=== PATIENT | female | born 1965 | race Caucasian/White ===

== ENCOUNTER → 2016-05-13 | Outpatient (CLI) | payer OTHER ==
[2016-05-13 13:30] VITALS: BP 114/75; PULSE 51; TEMP 97.1; BMI 32.1
--- NOTE | 2016-05-13 13:48 | P.BASOAP ---
Subjective Principal diagnosis: Morbid obesity Sever DJA Obstructive sleep apnea Patient is doing very well. No nasuea no vomting. no fever or chills. She is sticking with her diet. She reports having hair loss as well as issues of moistness and intermittent infection of hte redundant skin on the left side. She is ambulating well and does not require any pain medication for her osteoarthritis Objective - Vital Signs Vital signs: Vital Signs Temp 97.1 F L 05/13/16 13:28 Pulse 51 L 05/13/16 13:28 Resp BP 114/75 05/13/16 13:28 Pulse Ox Intake & Output 05/12/16 05/13/16 05/13/16 18:59 06:59 18:59 Weight 86.409 kg - Constitutional General appearance: Present: cooperative, obese - EENT Eyes: Present: EOMI, PERRLA ENT: Present: hearing grossly normal - Neck Neck: Absent: lymphadenopathy, normal ROM, other, rigidity, stridor, thyromegaly - Respiratory Details: Normal breathing without and dyspnea Respiratory: bilateral: CTA - Gastrointestinal Gastrointestinal Comment(s): incisions are healing well. No hernias General gastrointestinal: Present: normal bowel sounds, scaphoid, soft. Absent : absent bowel sounds, decreased bowel sounds, distended, hepatomegaly, hyperactive bowel sounds, rigid, splenomegaly, tenderness, umbilical hernia, ventral hernia - Integumentary Integumentary: Absent: calor, cellulitis, cyanotic, decreased turgor, flushed, jaundiced, normal, normal turgor, pale, rash, ulcer - Neurologic Neurologic: Present: CNII-XII intact. Absent: focal deficits - Psychiatric Psychiatric: Present: A&O x's 3, appropriate affect, intact judgment & insight Assessment/Plan Plan: Date: 05/13/16 Initial Weight: 116.528 kg Initial BMI: 43.4 Current Weight: 86.409 kg Current BMI: 32.1 Type of Surgery: Sleeve gastrectomy Is doing very well with her weight loss. He continue to maintain her diet. She is very active. She continues to use her CPAP for his sleep apnea. She has been using 40 mg of omeprazole for her reflux and I have recommended for her to stop taking that and weaning herself off over the next 2 months. Complaining of hearing loss which is worse than before I will do baseline labs including selenium to check for any migrated deficiency. She is however regularly taking her multivitamins. She is not using any pain medication for her legs and ablating well. She has however complaining about intermittent infection in the skin which was examined today and there was none at this time it was fairly dry. We'll continue to reevaluate the patient for that issue. Patient is to follow-up in 3 months thank you
[2016-05-13 15:12] LABS: CH 30.6; CHCM 35.4; HCT 37.4 % (34.0-46.0); HDW 3.05; HGB 12.9 gm/dL (11.4-16.0); MCHC 34.6 g/dL (31.0-37.0); MCV 86.8 fL (80.0-100.0); Mean Platelet Volume 7.9; RBC 4.31 m/uL (3.80-5.40); RDW 13.3 % (11.5-15.5); WBC 5.7 k/uL (3.8-10.6)
[2016-05-13 15:14] LABS: Anion Gap 13 mmol/L; Carbon Dioxide 30 mmol/L (22-30); Chloride 100 mmol/L (98-107); Glucose 84 mg/dL (74-99); Sodium 143 mmol/L (137-145)
[2016-05-13 15:15] LABS: ALT 36 U/L (9-52); AST 21 U/L (14-36); Alkaline Phosphatase 56 U/L (38-126); Blood Urea Nitrogen 18 mg/dL (7-17); Cholesterol 211 mg/dL (<200); HDL Cholesterol 51 mg/dL (40-60); Non-African American GFR(MDRD) >60 (>60 ml/min/1.73 sqM); Phosphorous 4.4 mg/dL (2.5-4.5); Potassium 4.6 mmol/L (3.5-5.1); Total Bilirubin 0.7 mg/dL (0.2-1.3); Total Protein 7.3 g/dL (6.3-8.2); Triglycerides 179 mg/dL (<150)
[2016-05-13 15:22] LABS: Prealbumin 26 mg/dL (18-36)
[2016-05-13 16:18] LABS: Vitamin B12 356 pg/mL (239-931)
[2016-05-16 18:48] LABS: Selenium 143 mcg/L (63-160)
== END | disposition home or self-care (01) ==
LOC: BARWHC3 12:53
PROVIDERS: ATTEND Surgery
DX: Z48.815 Encounter for surgical aftercare following surgery on the digestive system (principal); Z71.3 Dietary counseling and surveillance; E66.01 Morbid (severe) obesity due to excess calories; Z68.32 Body mass index [BMI] 32.0-32.9, adult; G47.33 Obstructive sleep apnea (adult) (pediatric); Z99.89 Dependence on other enabling machines and devices; M19.90 Unspecified osteoarthritis, unspecified site; L65.9 Nonscarring hair loss, unspecified; Z79.899 Other long term (current) drug therapy
CPT/HCPCS: 84255; 84134; 84425; 80061; 80053; 82607; 82525; 82746; 83735; 84100; 84590; 84630; 85027; 83970; 97803; G0463; 99211

== ENCOUNTER 2016-07-31 12:05 | Observation (INO) | payer OTHER ==
--- NOTE | 2016-07-31 12:30 | ED ---
General Adult HPI - General Chief complaint: Chest Pain Stated complaint: chest pain Time Seen by Provider: 07/31/16 12:06 Source: patient, EMS, RN notes reviewed, old records reviewed Mode of arrival: EMS - History of Present Illness Initial comments: This is a 50-year-old female to the ER for evaluation. Patient as well as emergency room. Patient coming in for evaluation of chest pain stress of breath cough and congestion. History of morbid obesity history of heart disease. Patient's chest pain Folex and was sitting on her chest. Patient has history of fibromyalgia diabetes high cholesterol hypertension and multiple other cardiac comorbidities. - Related Data Home Medications Medication Instructions Recorded Confirmed ALPRAZolam 1 mg PO BID PRN 03/08/14 07/31/16 Omeprazole [PriLOSEC] 20 mg PO AC-BRKFST PRN 03/08/14 07/31/16 traZODone HCL [Desyrel] 100 mg PO HS 03/08/14 07/31/16 Levothyroxine Sodium [Synthroid] 25 mcg PO QAM 09/22/14 07/31/16 DULoxetine HCL [Cymbalta] 60 mg PO DAILY 06/12/15 07/31/16 Cholecalciferol [Vitamin D3] 5,000 unit PO DAILY 06/26/15 07/31/16 Atenolol [Tenormin] 50 mg PO DAILY 07/31/16 07/31/16 Calcium 500mg Gummies 1 tab PO DAILY 07/31/16 07/31/16 traMADol HCL [Ultram] 50 mg PO BID PRN 07/31/16 07/31/16 Previous Rx's Medication Instructions Recorded Aspirin 81 mg PO DAILY #1 chewable 08/01/16 Nitroglycerin Sl Tabs [Nitrostat] 0.4 mg SUBLINGUAL Q5M PRN #25 tab 08/01/16 Allergies Allergy/AdvReac Type Severity Reaction Status Date / Time morphine AdvReac Itching Verified 07/31/16 12:54 [id number]-Gxt Reductase AdvReac muscle Verified 07/31/16 12:54 Inhibitor aches Review of Systems ROS Statement: Those systems with pertinent positive or pertinent negative responses have been documented in the HPI. ROS Other: All systems not noted in ROS Statement are negative. Past Medical History Past Medical History: Chest Pain / Angina, Fibromyalgia, GERD/Reflux, Hyperlipidemia, Hypertension, Osteoarthritis (OA), Sleep Apnea/CPAP/BIPAP, Thyroid Disorder Additional Past Medical History / Comment(s): Severe ROHAN . Uses CPAP. Hypothyroidism. History of Any Multi-Drug Resistant Organisms: None Reported Past Surgical History: Appendectomy, Bariatric Surgery, Breast Surgery, Section, Cholecystectomy, Heart Catheterization, Hysterectomy, Joint Replacement Additional Past Surgical History / Comment(s): Total L knee arthroplasty.AND MANIPULATION Other SX: C/S x 3, TOTAL RIGHT KNEE 04/12/14-then manipulation of rt knee. D&C. BILATERAL BREAST BIOSPIES, Sleeve gastrectomy 11/29/15 Past Anesthesia/Blood Transfusion Reactions: Previous Problems w/ Anesthesia, Motion Sickness, Postoperative Nausea & Vomiting (PONV) Additional Past Anesthesia/Blood Transfusion Reaction / Comment(s): STATES SHE STOPPED BREATHING DURING SURGERY FOR TOTAL KNEE REPLACEMENT(@MPH 04/2014) DUE TO SLEEP APNEA Past Psychological History: Anxiety, Depression Additional Psychological History / Comment(s): Pt resides with her spouse and children. She is independent with her ADLs. She drives. She has a CPAP machine. Smoking Status: Never smoker Past Alcohol Use History: Occasional Past Drug Use History: None Reported - Past Family History Father Family Medical History: Coronary Artery Disease (CAD) Additional Family Medical History / Comment(s): Father has had CABG. Mother Family Medical History: Musculoskeletal Disorder Additional Family Medical History / Comment(s): Mother has MS. General Exam General appearance: alert, in no apparent distress Head exam: Present: atraumatic, normocephalic, normal inspection Eye exam: Present: normal appearance, PERRL, EOMI. Absent: scleral icterus, conjunctival injection, periorbital swelling ENT exam: Present: normal exam, mucous membranes moist Neck exam: Present: normal inspection. Absent: tenderness, meningismus, lymphadenopathy Respiratory exam: Present: normal lung sounds bilaterally. Absent: respiratory distress, wheezes, rales, rhonchi, stridor Cardiovascular Exam: Present: regular rate, normal rhythm, normal heart sounds. Absent: systolic murmur, diastolic murmur, rubs, gallop, clicks GI/Abdominal exam: Present: soft, normal bowel sounds. Absent: distended, tenderness, guarding, rebound, rigid Extremities exam: Present: normal inspection, full ROM, normal capillary refill. Absent: tenderness, pedal edema, joint swelling, calf tenderness Back exam: Present: normal inspection Neurological exam: Present: alert, oriented X3, CN II-XII intact Psychiatric exam: Present: normal affect, normal mood Skin exam: Present: warm, dry, intact, normal color. Absent: rash Course Vital Signs 07/31/16 07/31/16 07/31/16 12:07 12:47 14:00 Temperature 98.4 F 98.6 F Pulse Rate 61 54 L 50 L Pulse Rate [ Pulse Oximetery ] Respiratory 16 16 16 Rate Blood Pressure 108/63 112/66 138/73 Blood Pressure [Left Arm] O2 Sat by Pulse 95 92 L 94 L Oximetry 07/31/16 07/31/16 07/31/16 15:00 15:50 16:00 Temperature 98.1 F 98.8 F 98.0 F Pulse Rate 50 L 61 Pulse Rate [ 49 L Pulse Oximetery ] Respiratory 16 18 16 Rate Blood Pressure 136/84 128/79 Blood Pressure 129/70 [Left Arm] O2 Sat by Pulse 98 99 98 Oximetry EKG Findings - EKG Comments: EKG Findings:: EKG shows normal sinus rhythm rate of 61, CO 140, QRS 82, QTC 4: 30 Medical Decision Making - Medical Decision Making 50 female at the present evaluation of chest pain. Patient does have history of chest pain. Also with history of morbid obesity and weight loss surgery. CTA of chest abdomen pelvis is negative for acute disease, exudate is negative troponins negative EKG is negative. Patient be admitted for consultation regarding chest pain, shortness of breath. Telemetry, anticoagulation - Lab Data Result diagrams: 07/31/16 12:18 07/31/16 12:18 Lab Results 07/31/16 07/31/16 07/31/16 Range/Units 12:18 12:18 12:18 WBC 10.0 (3.8-10.6) k/uL RBC 4.79 (3.80-5.40) m/uL Hgb 14.5 (11.4-16.0) gm/dL Hct 41.0 (34.0-46.0) % MCV 85.6 (80.0-100.0) fL MCH 30.2 (25.0-35.0) pg MCHC 35.3 (31.0-37.0) g/dL RDW 13.3 (11.5-15.5) % Plt Count 223 (150-450) k/uL Neutrophils % 79 % Lymphocytes % 15 % Monocytes % 4 % Eosinophils % 1 % Basophils % 0 % Neutrophils # 7.9 H (1.3-7.7) k/uL Lymphocytes # 1.5 (1.0-4.8) k/uL Monocytes # 0.4 (0-1.0) k/uL Eosinophils # 0.1 (0-0.7) k/uL Basophils # 0.0 (0-0.2) k/uL PT (9.0-12.0) sec INR (<1.1) APTT (22.0-30.0) sec D-Dimer (<0.60) mg/L FEU Sodium 137 (137-145) mmol/L Potassium 4.2 (3.5-5.1) mmol/L Chloride 102 (98-107) mmol/L Carbon Dioxide 26 (22-30) mmol/L Anion Gap 9 mmol/L BUN 26 H (7-17) mg/dL Creatinine 0.79 (0.52-1.04) mg/dL Est GFR (MDRD) Af Amer >60 (>60 ml/min/1.73 sqM) Est GFR (MDRD) Non-Af >60 (>60 ml/min/1.73 sqM) Glucose 102 H (74-99) mg/dL Calcium 9.5 (8.4-10.2) mg/dL Magnesium 2.0 (1.6-2.3) mg/dL Total Bilirubin 0.7 (0.2-1.3) mg/dL AST 27 (14-36) U/L ALT 60 H (9-52) U/L Alkaline Phosphatase 58 (38-126) U/L Total Creatine Kinase 47 (30-135) U/L CK-MB (CK-2) 1.6 (0.0-2.4) ng/mL CK-MB (CK-2) Rel Index 3.4 Troponin I <0.012 (0.000-0.034) ng/mL NT-Pro-B Natriuret Pep pg/mL Total Protein 7.1 (6.3-8.2) g/dL Albumin 4.2 (3.5-5.0) g/dL Triglycerides (<150) mg/dL Cholesterol (<200) mg/dL LDL Cholesterol, Calc (0-99) mg/dL HDL Cholesterol (40-60) mg/dL Lipase 339 H (23-300) U/L 07/31/16 07/31/16 07/31/16 Range/Units 12:18 12:18 12:18 WBC (3.8-10.6) k/uL RBC (3.80-5.40) m/uL Hgb (11.4-16.0) gm/dL Hct (34.0-46.0) % MCV (80.0-100.0) fL MCH (25.0-35.0) pg MCHC (31.0-37.0) g/dL RDW (11.5-15.5) % Plt Count (150-450) k/uL Neutrophils % % Lymphocytes % % Monocytes % % Eosinophils % % Basophils % % Neutrophils # (1.3-7.7) k/uL Lymphocytes # (1.0-4.8) k/uL Monocytes # (0-1.0) k/uL Eosinophils # (0-0.7) k/uL Basophils # (0-0.2) k/uL PT 10.2 (9.0-12.0) sec INR 1.0 (<1.1) APTT 22.1 (22.0-30.0) sec D-Dimer 0.50 (<0.60) mg/L FEU Sodium (137-145) mmol/L Potassium (3.5-5.1) mmol/L Chloride (98-107) mmol/L Carbon Dioxide (22-30) mmol/L Anion Gap mmol/L BUN (7-17) mg/dL Creatinine (0.52-1.04) mg/dL Est GFR (MDRD) Af Amer (>60 ml/min/1.73 sqM) Est GFR (MDRD) Non-Af (>60 ml/min/1.73 sqM) Glucose (74-99) mg/dL Calcium (8.4-10.2) mg/dL Magnesium (1.6-2.3) mg/dL Total Bilirubin (0.2-1.3) mg/dL AST (14-36) U/L ALT (9-52) U/L Alkaline Phosphatase (38-126) U/L Total Creatine Kinase (30-135) U/L CK-MB (CK-2) (0.0-2.4) ng/mL CK-MB (CK-2) Rel Index Troponin I (0.000-0.034) ng/mL NT-Pro-B Natriuret Pep 66 pg/mL Total Protein (6.3-8.2) g/dL Albumin (3.5-5.0) g/dL Triglycerides (<150) mg/dL Cholesterol (<200) mg/dL LDL Cholesterol, Calc (0-99) mg/dL HDL Cholesterol (40-60) mg/dL Lipase (23-300) U/L 07/31/16 Range/Units 12:18 WBC (3.8-10.6) k/uL RBC (3.80-5.40) m/uL Hgb (11.4-16.0) gm/dL Hct (34.0-46.0) % MCV (80.0-100.0) fL MCH (25.0-35.0) pg MCHC (31.0-37.0) g/dL RDW (11.5-15.5) % Plt Count (150-450) k/uL Neutrophils % % Lymphocytes % % Monocytes % % Eosinophils % % Basophils % % Neutrophils # (1.3-7.7) k/uL Lymphocytes # (1.0-4.8) k/uL Monocytes # (0-1.0) k/uL Eosinophils # (0-0.7) k/uL Basophils # (0-0.2) k/uL PT (9.0-12.0) sec INR (<1.1) APTT (22.0-30.0) sec D-Dimer (<0.60) mg/L FEU Sodium (137-145) mmol/L Potassium (3.5-5.1) mmol/L Chloride (98-107) mmol/L Carbon Dioxide (22-30) mmol/L Anion Gap mmol/L BUN (7-17) mg/dL Creatinine (0.52-1.04) mg/dL Est GFR (MDRD) Af Amer (>60 ml/min/1.73 sqM) Est GFR (MDRD) Non-Af (>60 ml/min/1.73 sqM) Glucose (74-99) mg/dL Calcium (8.4-10.2) mg/dL Magnesium (1.6-2.3) mg/dL Total Bilirubin (0.2-1.3) mg/dL AST (14-36) U/L ALT (9-52) U/L Alkaline Phosphatase (38-126) U/L Total Creatine Kinase (30-135) U/L CK-MB (CK-2) (0.0-2.4) ng/mL CK-MB (CK-2) Rel Index Troponin I (0.000-0.034) ng/mL NT-Pro-B Natriuret Pep pg/mL Total Protein (6.3-8.2) g/dL Albumin (3.5-5.0) g/dL Triglycerides 133 (<150) mg/dL Cholesterol 218 H (<200) mg/dL LDL Cholesterol, Calc 129 H (0-99) mg/dL HDL Cholesterol 62 H (40-60) mg/dL Lipase (23-300) U/L - Radiology Data Radiology results: report reviewed (Chest x-ray is negative for acute disease, CTA chest was negative for PE, CT pelvis shows no. Issue), image reviewed Disposition Clinical Impression: Chest pain, Unstable angina pectoris, Morbid (severe) obesity due to excess calories Disposition: ADMITTED IP TO THIS [facility] Condition: Undetermined
[2016-07-31] MEDS ORDERED: HYDROmorphone 1 MG/ML 1 ML SYRINGE IVP STA ×2 (12:33→14:54)
[2016-07-31 12:36] LABS: Basophils % (A) 0 %; CH 30.9; CHCM 36.3; Eosinophils # (A) 0.1 k/uL (0-0.7); Eosinophils % (A) 1 %; HDW 2.77; HGB 14.5 gm/dL (11.4-16.0); Luc # (Auto) 0.08; Luc % (Auto) 1; Lymphocytes # (A) 1.5 k/uL (1.0-4.8); Lymphocytes % (A) 15 %; MCH 30.2 pg (25.0-35.0); MCHC 35.3 g/dL (31.0-37.0); MCV 85.6 fL (80.0-100.0); Mean Platelet Volume 6.9; Monocytes # (A) 0.4 k/uL (0-1.0); Monocytes % (A) 4 %; Neutrophils # (A) 7.9 k/uL (1.3-7.7); Neutrophils % (A) 79 %; RBC 4.79 m/uL (3.80-5.40); RDW 13.3 % (11.5-15.5); WBC (Perox) 9.52
[2016-07-31 12:48] LABS: Partial Thromboplastin Time 22.1 sec (22.0-30.0); Prothrombin Time 10.2 sec (9.0-12.0)
[2016-07-31 12:53] LABS: ALT 60 U/L (9-52); AST 27 U/L (14-36); Alkaline Phosphatase 58 U/L (38-126); Anion Gap 9 mmol/L; Blood Urea Nitrogen 26 mg/dL (7-17); Calcium 9.5 mg/dL (8.4-10.2); Carbon Dioxide 26 mmol/L (22-30); Chloride 102 mmol/L (98-107); Glucose 102 mg/dL (74-99); Non-African American GFR(MDRD) >60 (>60 ml/min/1.73 sqM); Potassium 4.2 mmol/L (3.5-5.1); Sodium 137 mmol/L (137-145); Total Bilirubin 0.7 mg/dL (0.2-1.3); Total Protein 7.1 g/dL (6.3-8.2)
[2016-07-31 13:09] LABS: Creatine Kinase 47 U/L (30-135)
--- NOTE | 2016-07-31 13:10 | XR ---
EXAMINATION TYPE: XR chest 2V DATE OF EXAM: 07/31/2016 1:02 PM COMPARISON: 04/13/2014 INDICATION: Chest pain TECHNIQUE: 2 view chest FINDINGS: The heart size is normal. The pulmonary vasculature is normal. The lungs are clear. IMPRESSION: 1. No acute pulmonary process.
[2016-07-31 13:23] LABS: Creatine Kinase MB 1.6 ng/mL (0.0-2.4); Troponin I <0.012 ng/mL (0.000-0.034)
[2016-07-31] MEDS ORDERED: RX INFO: IV CONTRAST WAS GIVEN 1 EACH MISC MISCELLANE PRN (13:29)
--- NOTE | 2016-07-31 14:30 | CT ---
CT CHEST FOR PULMONARY EMBOLISM. EXAMINATION TYPE: CT angio chest DATE OF EXAM: 07/31/2016 2:16 PM INDICATION: Chest pains CT DLP: 396.10 mGycm, Automated exposure control for dose reduction was used. CONTRAST: Patient injected with 100 mL of Omnipaque 350. COMPARISON: NONE TECHNIQUE: CT of the chest is performed on a spiral scan at 2 mm thick sections. Study is performed with intravenous contrast timed for evaluation for pulmonary embolism. This will limit additional po rtions of the evaluation. 3-D MIP images reconstructed by the technologist are reviewed on the compu ter in the coronal and sagittal planes. FINDINGS: No persistent filling defects are evident to suggest an acute pulmonary embolism. No mediastinal or hilar adenopathy enlarged by CT criteria is evident. The ascending aorta diameter at the level of the main pulmonary artery is 3.5 cm. The main pulmonary artery diameter at the bifur cation is 3.5 cm. There is mild scattered dependent areas of increased density on the lung windows suggestive of some c ompressive atelectasis or subsegmental atelectasis. Limited CT section through the upper abdomen are unremarkable. Small hiatal hernia is present. IMPRESSIONS: 1. No acute pulmonary embolism. 2. Suggestion of mild dependent subsegmental and compressive atelectasis.
--- NOTE | 2016-07-31 14:34 | CT ---
EXAMINATION TYPE: CT abdomen pelvis w con DATE OF EXAM: 07/31/2016 2:16 PM COMPARISON: NONE INDICATION: Not feeling well. Pain DLP: 1367.50 mGycm, Automated exposure control for dose reduction was used. CONTRAST: 100 mL of Omnipaque 350. Study performed without Oral Contrast TECHNIQUE: Axial images were obtained from above the diaphragm to the pubic rami in the axial plane a t 5 mm thick sections. Reconstructed images are reviewed on the computer in the coronal plane. FINDINGS: Limited CT sections are obtained the lung bases. Some minimal compressive atelectasis may be within the dependent portions of the lung bases. Small hiatal hernia may be present.. Gastric sleeve is anthony dent. CT ABDOMEN: Liver: Normal Spleen: Normal Pancreas: Normal Adrenal glands: The adrenal glands are normal. Gallbladder: Surgically absent Kidneys: No masses are evident. No hydronephrosis is present. No cysts are present. Delayed images were obtained through the kidneys, which remain unremarkable. Aorta: Normal Inferior vena cava: Normal. CT PELVIS: Loops of bowel within the abdomen and pelvis are normal. Diverticular changes are within the sigm oid colon. No acute diverticulitis is evident. Fecal debris is in the colon. Appendix: Not visualized Urinary bladder: Normal. Genitourinary structures: Vaginal cuff region is normal. Uterus is not identified. Adnexal regions ar e clear. Osseous structures: No suspicious lytic or sclerotic lesions. IMPRESSIONS: 1. Diverticulosis without acute diverticulitis.
[2016-07-31] MEDS ORDERED: NITROGLYCERIN SL TABS 0.4 MG TAB SUBLINGUAL PRN (14:54)
[2016-07-31] MEDS ORDERED: ASPIRIN 81 MG CHEW PO STA (14:54)
[2016-07-31] MEDS ORDERED: HYDROmorphone 1 MG/ML 1 ML SYRINGE IVP PRN (14:54)
[2016-07-31] MEDS: SODIUM CHLORIDE 0.9% 1,000 ML IV SCH ×2 (15:06→23:17)
[2016-07-31 17:01] VITALS: BMI 33.5
[2016-07-31 18:18] LABS: Creatine Kinase 40 U/L (30-135)
[2016-07-31 18:32] LABS: Creatine Kinase MB 1.3 ng/mL (0.0-2.4); Troponin I <0.012 ng/mL (0.000-0.034)
[2016-07-31] MEDS ORDERED: traMADol 50 MG TAB PO PRN (19:58)
[2016-07-31] MEDS ORDERED: PANTOPRAZOLE 40 MG TABLET PO PRN (19:58)
[2016-07-31] MEDS: ALPRAZolam 0.5 MG TAB PO PRN (20:36)
[2016-07-31] MEDS ORDERED: ATENOLOL 50 MG TAB PO SCH (21:00)
[2016-07-31] MEDS ORDERED: traZODone HCL 100 MG TAB PO SCH (21:00)
[2016-07-31] MEDS ORDERED: ENOXAPARIN 40 MG/0.4 ML SYRINGE SQ SCH (21:00)
[2016-08-01 00:49] LABS: Creatine Kinase 30 U/L (30-135)
[2016-08-01 01:01] LABS: Creatine Kinase MB 0.9 ng/mL (0.0-2.4); Troponin I <0.012 ng/mL (0.000-0.034)
[2016-08-01 03:40] LABS: Cholesterol 218 mg/dL (<200); HDL Cholesterol 62 mg/dL (40-60); Triglycerides 133 mg/dL (<150)
[2016-08-01] MEDS ORDERED: LEVOTHYROXINE 25 MCG TAB PO SCH (06:30)
--- NOTE | 2016-08-01 07:54 | P.GSCN ---
History of Present Illness Consult date: 08/01/16 Reason for Consult: chest pain History of present illness: Patient is a 50-year-old female who is well known to me from her history of sequestrectomy. She presented with epigastric chest pain. At that time she was severe amount of stress in the family. She's also been having palpitations recently. She is not complaining of any chest pain at this time. She has a history of reflux which is been mild but acted up slightly. She did gain #8 pounds weight but has lost 4 pounds of weight. She is having worsening pain and discomfort in her knees. Review of Systems - Constitutional Denies fever, Denies weight loss - EENT Eyes: denies blurred vision - Gastrointestinal Reports as per HPI - Integumentary Denies rash, Denies unusual bruising Past Medical History Past Medical History: Chest Pain / Angina, Fibromyalgia, GERD/Reflux, Hyperlipidemia, Hypertension, Osteoarthritis (OA), Sleep Apnea/CPAP/BIPAP, Thyroid Disorder Additional Past Medical History / Comment(s): Severe ROHAN . Uses CPAP. Hypothyroidism. History of Any Multi-Drug Resistant Organisms: None Reported Past Surgical History: Appendectomy, Bariatric Surgery, Breast Surgery, Section, Cholecystectomy, Heart Catheterization, Hysterectomy, Joint Replacement Additional Past Surgical History / Comment(s): Total L and R knee arthroplasty.AND MANIPULATION Other SX: C/S x 3, TOTAL RIGHT KNEE 04/12/14-then manipulation of rt knee. D&C. BILATERAL BREAST BIOSPIES, Sleeve gastrectomy 11/29/15 Past Anesthesia/Blood Transfusion Reactions: Previous Problems w/ Anesthesia, Motion Sickness, Postoperative Nausea & Vomiting (PONV) Additional Past Anesthesia/Blood Transfusion Reaction / Comm: STATES SHE STOPPED BREATHING DURING SURGERY FOR TOTAL KNEE REPLACEMENT(@MPH 04/2014) DUE TO SLEEP APNEA Past Psychological History: Anxiety, Depression Additional Psychological History / Comment(s): Pt resides with her spouse and children. She is independent with her ADLs. She drives. She has a CPAP machine. Smoking Status: Never smoker Past Alcohol Use History: Occasional Past Drug Use History: None Reported - Past Family History Father Family Medical History: Coronary Artery Disease (CAD) Additional Family Medical History / Comment(s): Father has had CABG. Mother Family Medical History: Musculoskeletal Disorder Additional Family Medical History / Comment(s): Mother has MS. Medications and Allergies Home Medications Medication Instructions Recorded Confirmed Type ALPRAZolam 1 mg PO BID PRN 03/08/14 07/31/16 History Omeprazole [PriLOSEC] 20 mg PO AC-BRKFST PRN 03/08/14 07/31/16 History traZODone HCL [Desyrel] 100 mg PO HS 03/08/14 07/31/16 History Levothyroxine Sodium [Synthroid] 25 mcg PO QAM 09/22/14 07/31/16 History DULoxetine HCL [Cymbalta] 60 mg PO DAILY 06/12/15 07/31/16 History Cholecalciferol [Vitamin D3] 5,000 unit PO DAILY 06/26/15 07/31/16 History Atenolol [Tenormin] 50 mg PO DAILY 07/31/16 07/31/16 History Calcium 500mg Gummies 1 tab PO DAILY 07/31/16 07/31/16 History traMADol HCL [Ultram] 50 mg PO BID PRN 07/31/16 07/31/16 History Allergies Allergy/AdvReac Type Severity Reaction Status Date / Time morphine AdvReac Itching Verified 07/31/16 12:54 [id number]-[id number] Reductase AdvReac muscle Verified 07/31/16 12:54 Inhibitor aches Surgical - Exam Vital Signs Temp Pulse Resp BP Pulse Ox 98.4 F 61 16 108/63 95 07/31/16 12:07 07/31/16 12:07 07/31/16 12:07 07/31/16 12:07 07/31/16 12:07 - General well developed, well nourished, no distress - Eyes normal ocular movement, no icteric - Abdomen Abdomen: soft, non tender Results - Labs 07/31/16 12:18 07/31/16 12:18 - Imaging CT scan - abdomen: report reviewed Assessment and Plan Plan: On the surgical standpoint she is doing fine. There is no nausea no vomiting. She's tolerating a bariatric diet. She is to follow-up in my clinic next week thank you no surgical intervention is planned I will sign off at this time
[2016-08-01] MEDS ORDERED: DULoxetine HCL 60 MG CAPSULE.DR PO SCH (09:00)
[2016-08-01] MEDS ORDERED: ATENOLOL 50 MG TAB PO SCH (09:00)
[2016-08-01] MEDS ORDERED: CALCIUM CARBONATE 500 MG CHEWABLE PO SCH (09:00)
[2016-08-01] MEDS ORDERED: ASPIRIN 325 MG TAB PO SCH (09:00)
[2016-08-01] MEDS ORDERED: REGADENOSON 0.4 MG/5 ML SYRINGE IV ONE (10:00)
[2016-08-01] MEDS ORDERED: AMINOPHYLLINE 500 MG/20 ML VIAL IV PRN (10:00)
--- NOTE | 2016-08-01 10:08 | P.CRDCN ---
History of Present Illness Consult date: 08/01/16 History of present illness: This is a 50-year-old female with history of of knee surgery about one and half years ago and also sick sequestrectomy done about several months ago, comes with complaints of chest pain. Patient is under a lot of stress because of family affairs. She claims she had severe tightness across the chest as if somebody was sitting her chest. This started the day before yesterday and continued through the night of . Pain was intermittent in nature. Associated mild nausea. The pain might have increases on deep breathing. It also radiates to both shoulder areas and axilla. In view of that patient came to the hospital .So far her cardiac enzymes are negative. EKGs are negative. She had a computed tomography scan of the chest which was negative for pulmonary emboli. There appears to be mild calcification of coronary arteries. She has family history of ischemic heart disease. He is to be hypertensive but not anymore. Patient is being scheduled for a nuclear stress test. She is not a smoker and if the stress test is negative for ischemia, patient could be discharged home. Patient follows with Dr. EVENS Soto and a follow-up appointment could be made with him. Review of Systems As per the chart Past Medical History Past Medical History: Chest Pain / Angina, Fibromyalgia, GERD/Reflux, Hyperlipidemia, Hypertension, Osteoarthritis (OA), Sleep Apnea/CPAP/BIPAP, Thyroid Disorder Additional Past Medical History / Comment(s): Severe ROHAN . Uses CPAP. Hypothyroidism. History of Any Multi-Drug Resistant Organisms: None Reported Past Surgical History: Appendectomy, Bariatric Surgery, Breast Surgery, Section, Cholecystectomy, Heart Catheterization, Hysterectomy, Joint Replacement Additional Past Surgical History / Comment(s): Total L and R knee arthroplasty.AND MANIPULATION Other SX: C/S x 3, TOTAL RIGHT KNEE 04/12/14-then manipulation of rt knee. D&C. BILATERAL BREAST BIOSPIES, Sleeve gastrectomy 11/29/15 Past Anesthesia/Blood Transfusion Reactions: Previous Problems w/ Anesthesia, Motion Sickness, Postoperative Nausea & Vomiting (PONV) Additional Past Anesthesia/Blood Transfusion Reaction / Comment(s): STATES SHE STOPPED BREATHING DURING SURGERY FOR TOTAL KNEE REPLACEMENT(@MPH 04/2014) DUE TO SLEEP APNEA Past Psychological History: Anxiety, Depression Additional Psychological History / Comment(s): Pt resides with her spouse and children. She is independent with her ADLs. She drives. She has a CPAP machine. Smoking Status: Never smoker Past Alcohol Use History: Occasional Past Drug Use History: None Reported - Past Family History Father Family Medical History: Coronary Artery Disease (CAD) Additional Family Medical History / Comment(s): Father has had CABG. Mother Family Medical History: Musculoskeletal Disorder Additional Family Medical History / Comment(s): Mother has MS. Medications and Allergies Home Medications Medication Instructions Recorded Confirmed Type ALPRAZolam 1 mg PO BID PRN 03/08/14 07/31/16 History Omeprazole [PriLOSEC] 20 mg PO AC-BRKFST PRN 03/08/14 07/31/16 History traZODone HCL [Desyrel] 100 mg PO HS 03/08/14 07/31/16 History Levothyroxine Sodium [Synthroid] 25 mcg PO QAM 09/22/14 07/31/16 History DULoxetine HCL [Cymbalta] 60 mg PO DAILY 06/12/15 07/31/16 History Cholecalciferol [Vitamin D3] 5,000 unit PO DAILY 06/26/15 07/31/16 History Atenolol [Tenormin] 50 mg PO DAILY 07/31/16 07/31/16 History Calcium 500mg Gummies 1 tab PO DAILY 07/31/16 07/31/16 History traMADol HCL [Ultram] 50 mg PO BID PRN 07/31/16 07/31/16 History Allergies Allergy/AdvReac Type Severity Reaction Status Date / Time morphine AdvReac Itching Verified 07/31/16 12:54 Ctcsray-Ysd-Zab Reductase AdvReac muscle Verified 07/31/16 12:54 Inhibitor aches Physical Exam Vitals: Vital Signs Temp Pulse Pulse Resp BP BP BP 08/01/16 08:00 97.9 F 45 L 16 106/74 08/01/16 04:00 98.1 F 47 L 18 92/51 08/01/16 03:36 16 07/31/16 23:58 97.9 F 47 L 16 92/52 07/31/16 20:00 98.0 F 51 L 16 116/67 07/31/16 16:00 98.0 F 49 L 16 129/70 07/31/16 15:50 98.8 F 61 18 128/79 07/31/16 15:00 98.1 F 50 L 16 136/84 Pulse Ox 08/01/16 08:00 97 08/01/16 04:00 93 L 08/01/16 03:36 07/31/16 23:58 95 07/31/16 20:00 96 07/31/16 16:00 98 07/31/16 15:50 99 07/31/16 15:00 98 Intake and Output 07/31/16 08/01/16 08/01/16 22:59 06:59 14:59 Intake Total 240 Balance 240 Intake: Oral 240 Other: Voiding Method Toilet # Voids 1 1 Weight 88.451 kg GENERAL EXAM: Patient is alert and oriented and doesn't appear to be in any acute distress HEENT: Normocephalic. Normal reaction of pupils, equal size, normal range of extraocular motion. No erythema or exudates in the throat. NECK: No masses, no nuchal rigidity. CHEST: No chest wall deformity. LUNGS: Equal air entry with no crackles or wheeze. HEART: S1 and S2 normal with no audible mumurs or gallops. Regular rhythm, femorals equal on both sides.. ABDOMEN: No hepatosplenomegaly, normal bowel sounds, no guarding or rigidity. SKIN: No rashes CENTRAL NERVOUS SYSTEM: No focal deficits. EXTREMITIES: No cyanosis, clubbing or edema. Results 07/31/16 12:18 07/31/16 12:18 Cardiac Enzymes 07/31/16 07/31/16 Range/Units 17:53 23:56 CK-MB (CK-2) 1.3 0.9 (0.0-2.4) ng/mL Troponin I <0.012 <0.012 (0.000-0.034) ng/mL Current Medications Generic Name Dose Route Start Last Admin Trade Name Freq PRN Reason Stop Dose Admin Alprazolam 1 mg 07/31/16 19:58 07/31/16 20:36 Xanax PO 1 mg BID PRN Administration Anxiety Aspirin 325 mg 08/01/16 09:00 Aspirin PO DAILY RUTH Atenolol 50 mg 07/31/16 21:00 07/31/16 20:36 Tenormin PO 50 mg HS RUTH Administration Calcium Carbonate/Glycine 1 mg 08/01/16 09:00 Tums PO DAILY RUTH Cholecalciferol 5,000 unit 08/01/16 12:00 Vitamin D3 PO DAILY@1200 [facility] Duloxetine HCl 60 mg 08/01/16 09:00 Cymbalta PO DAILY RUTH Enoxaparin Sodium 40 mg 07/31/16 21:00 07/31/16 23:17 Lovenox SQ 40 mg Q24H RUTH Administration Hydromorphone HCl 1 mg 07/31/16 14:54 07/31/16 20:25 Dilaudid IVP 1 mg Q4HR PRN Administration Pain Sodium Chloride 1,000 mls @ 100 mls/hr 07/31/16 15:00 07/31/16 23:17 Saline 0.9% IV 100 mls/hr .Q10H RUTH Administration Levothyroxine Sodium 25 mcg 08/01/16 06:30 08/01/16 06:12 Synthroid PO 25 mcg DAILY@0630 RUTH Administration Miscellaneous Information 1 each 07/31/16 13:29 07/31/16 13:30 Rx Info: Iv Contrast Was Given MISCELLANE 08/02/16 13:30 1 each DAILY PRN Administration Per Protocol Nitroglycerin 0.4 mg 07/31/16 14:54 Nitrostat SUBLINGUAL Q5M PRN Chest Pain Pantoprazole Sodium 40 mg 07/31/16 19:58 Protonix PO AC-BRKFST PRN Heartburn Tramadol HCl 50 mg 07/31/16 19:58 Ultram PO BID PRN Pain Trazodone HCl 100 mg 07/31/16 21:00 07/31/16 20:36 Desyrel PO 100 mg HS RUTH Administration Intake and Output 07/31/16 08/01/16 08/01/16 22:59 06:59 14:59 Intake Total 240 Balance 240 Intake: Oral 240 Other: Voiding Method Toilet # Voids 1 1 Weight 88.451 kg EKG Interpretations (text) Sinus rhythm Assessment and Plan (1) Chest pain Status: Acute (2) Obstructive sleep apnea Status: Acute (3) Osteoarthritis of right knee Status: Acute Plan: Her chest pains are atypical for angina. Cardiac enzymes are negative. Computed tomography scan is negative for pulmonary emboli. There appears to mild constipation coronary system. Family history is positive for ischemic heart disease in her father. Patient is being scheduled for a Lexiscan stress test. If that is negative patient could be discharged home. Follow-up with Dr. EVENS Soto
--- NOTE | 2016-08-01 10:32 | HP ---
DATE OF ADMISSION: 07/31/2016 PRESENTING COMPLAINT: Chest pain. HISTORY OF PRESENTING COMPLAINT: This is a pleasant 50-year-old patient of Dr. Dinero. Chronic medical stable conditions include fibromyalgia, GERD, hyperlipidemia, hypertension, obstructive sleep apnea, hypothyroidism and depression. The patient presented with chest pain, going across the chest all night, going up to the neck. Not really short of breath, but felt dizzy and weak and broke out in a perspiration. Hence, the patient decided to come in to rule out cardiac cause. Denies any prior cardiac history. REVIEW OF SYSTEMS: CONSTITUTIONAL: Tired. HEENT: None. RESPIRATORY: None. CARDIOVASCULAR: As above. GASTROINTESTINAL: Heartburn controlled. Left under rib cage pain. GENITOURINARY: None. MUSCULOSKELETAL: Aches and pains in the joints. DERMATOLOGICAL: None. HEMATOLOGICAL: None. LYMPHATIC: None. PSYCHIATRY: None. NEUROLOGICAL: None. PAST MEDICAL HISTORY: Fibromyalgia, GERD, hyperlipidemia, hypertension, obstructive sleep apnea, hypothyroid, depression. PAST SURGICAL HISTORY: Appendectomy, bariatric surgery, breast surgery, , cholecystectomy, cardiac cath, left and right knee arthroplasty, right knee surgery, bilateral breast biopsy, sleeve gastrectomy in 11/29/2015. SOCIAL HISTORY: Patient is . Takes care of daughter who is in a wheelchair. No smoking. Alcohol occasionally. FAMILY HISTORY: Mother had multiple sclerosis. HOME MEDICATIONS: 1. Desyrel 100 mg p.o. at bedtime. 2. Calcium 1 tablet p.o. daily. 3. Ultram 50 mg p.o. b.i.d. p.r.n. 4. Synthroid 25 mcg p.o. daily. 5. Cymbalta 60 mg p.o. daily. 6. Vitamin D3, 500 mg p.o. daily. 7. Tenormin 50 mg p.o. daily. 8. Xanax 1 mg p.o. b.i.d. p.r.n. 9. Prilosec 20 mg with breakfast p.r.n. ALLERGIES: MORPHINE, STATINS. On examination, temperature 98.4, pulse 61, respirations 16, blood pressure 108/63, pulse ox 95% on 2 liters. GENERAL APPEARANCE: Well built, BMI of 33.5. Lying in bed, not in distress. HEENT: Eyes, pupils equal. Conjunctivae normal. NECK: JVD not raised. Mass not palpable. RESPIRATORY: Effort normal. LUNGS: Fair air entry. CARDIOVASCULAR: First and second sounds normal. No edema. ABDOMEN: Soft, nontender. Liver and spleen not palpable. LYMPHATIC: No lymph node palpable in neck or axillae. PSYCHIATRY: Alert and oriented x3. Mood and affect normal. NEUROLOGICAL: Pupils equal. Cranial nerves intact. Power and sensation grossly intact. INVESTIGATIONS: White count 10, hemoglobin 14.5, potassium 4.2. BUN 26, creatinine 0.79. Troponin x2 negative. EKG normal sinus rhythm. CT scan of the abdomen and pelvis, some diverticulosis. ASSESSMENT: 1. Left-sided precordial chest pain and the patient's cardiac risk factors include hyperlipidemia, hypertension, obesity. Need to rule out a cardiac cause. Serial cardiac enzymes are in place. 2. Chronic fibromyalgia. 3. Gastroesophageal reflux disease. 4. Hyperlipidemia. 5. Essential hypertension. 6. Obesity, body mass index 33.5. 7. Obstructive sleep apnea, on CPAP machine. 8. Hypothyroidism. 9. Depression not otherwise specified. PLAN: Serial cardiac enzymes are in place. Cardiology is consulted. The patient may need a stress test, also aspirin and beta sarah. Care was discussed with the patient.
[2016-08-01] MEDS ORDERED: CHOLECALCIFEROL 1,000 UNIT TAB PO SCH (12:00)
[2016-08-01] MEDS: ALPRAZolam 0.5 MG TAB PO PRN (12:33)
--- NOTE | 2016-08-01 12:36 | EST ---
DATE OF SERVICE: 08/01/2016 AGE: 50Y SEX: F HT: 64" WT: 195 lbs. Protocol Speedy: Other: Stage: Dur. of Exercise: *Heart Rate Blood Pressure *Rest: 42 Rest: 106/76 * *Max. Achieved: 143 Maximum BP: 168 85% PMHR: 84 100% PMHR: 125/91 *METS: INDICATIONS: Palpitations and chest pain. MEDICATIONS: See list. Clinical information: Chest pain, palpitations, family history of coronary artery disease. Resting ECG shows sinus bradycardia. Rate of 42 beats a minute. IA interval 0.16, QRS 0.08, normal ST-T waves. Utilizing standard Lexiscan protocol, Lexiscan was given IV push followed by serial EKGs without any chest pain or pressure or ST segment deviations indicative of ischemia. Patient tolerated the procedure very well. IMPRESSION: 1. Baseline rhythm is sinus with normal IA intervals, normal ST-T waves and sinus bradycardia. 2. Negative Lexiscan Cardiolite study. 3. Nuclear scintigrams to follow from radiology department.
--- NOTE | 2016-08-01 12:47 | NM ---
EXAMINATION TYPE: NM stress lexiscan cardiolite DATE OF EXAM: 08/01/2016 12:40 PM COMPARISON: NONE HISTORY: TECHNIQUE: After the intravenous administration of 9.12 mCi Tc 99m Sestamibi - Cardiolite resting SP ECT images acquired 60 minutes post injection. The patient received 0.4mg Lexiscan, 25.2 mCi Tc 99m Sestamibi - Stress images obtained [address] injection FINDINGS: Review of stress and rest SPECT images demonstrates no distinct perfusion abnormality. Gated analysi s shows normal wall motion with an estimated left ventricular ejection fraction of 67 %. IMPRESSION: No scintigraphic evidence for reversible ischemia.
[2016-08-01 12:58] VITALS: BP 112/64; PULSE 58; RESP 18; TEMP 98.2
[2016-08-01] MEDS: SODIUM CHLORIDE 0.9% 1,000 ML IV SCH (14:32)
--- NOTE | 2016-08-03 09:15 | DS ---
DATE OF ADMISSION: 07/31/2016 DATE OF DISCHARGE: 08/01/2016 FINAL DIAGNOSIS(ES: 1. Left-sided precordial chest pain, possibly musculoskeletal. 2. Chronic fibromyalgia. 3. Gastroesophageal reflux disease. 4. Hyperlipidemia. 5. Essential hypertension. 6. Obesity, body mass index of 33.5. 7. Obstructive sleep apnea on CPAP machine. 8. Hyperthyroidism. 9. Depression not otherwise specified. HOSPITAL COURSE: This patient presented with left-sided chest pain. Troponins were negative. LDL 129. The patient did undergo nuclear stress that was negative. On exam: ABDOMEN: Soft, nontender. LUNGS: Clear. CONSULTATION: Dr. Eubanks from cardiology; Dr. Eagle from general surgery. Patient has prior history of bariatric surgery; hence, he saw Dr. Eagle. The patient nuclear stress test was negative. DISCHARGE MEDICATIONS: 1. Xanax 1 mg p.o. b.i.d. p.r.n. 2. Prilosec 20 mg p.o. before breakfast. 3. Desyrel 100 mg p.o. q.h.s. 4. Synthroid 25 mcg p.o. daily. 5. Cymbalta 60 mg p.o. daily. 6. Vitamin D3 5000 units p.o. daily. 7. Tenormin 50 mg p.o. daily. 8. Calcium 1 tablet p.o. daily. 9. Ultram 50 mg p.o. b.i.d. p.r.n. 10. Aspirin 81 mg p.o. daily. 11. Nitrostat 0.4 sublingual q.5 p.r.n. Follow up with Dr. Dinero in 3 days, Dr. Eubanks p.r.n. Dr. Reyes in [address] Eagle as scheduled.
== END 2016-08-01 15:06 | disposition home or self-care (01) ==
LOC: EC 12:05 → 3OBS 14:54
PROVIDERS: ADMIT Hospitalist; ATTEND Hospitalist
DX: R07.2 Precordial pain (principal); E11.9 Type 2 diabetes mellitus without complications; I10 Essential (primary) hypertension; K21.9 Gastro-esophageal reflux disease without esophagitis; E78.5 Hyperlipidemia, unspecified; M19.90 Unspecified osteoarthritis, unspecified site; G47.30 Sleep apnea, unspecified; G47.33 Obstructive sleep apnea (adult) (pediatric); M79.7 Fibromyalgia; Z79.82 Long term (current) use of aspirin; E03.9 Hypothyroidism, unspecified; Z82.49 Family history of ischemic heart disease and other diseases of the circulatory system; Z82.0 Family history of epilepsy and other diseases of the nervous system; F32.9 Major depressive disorder, single episode, unspecified; F41.9 Anxiety disorder, unspecified; Z96.653 Presence of artificial knee joint, bilateral; Z90.710 Acquired absence of both cervix and uterus; Z90.49 Acquired absence of other specified parts of digestive tract; Z79.899 Other long term (current) drug therapy; Z98.84 Bariatric surgery status
CPT/HCPCS: 96374 ×2; 96376 ×2; 96361 ×2; 99285 ×2; 36415; 93005; 93017; 85379; 83880; 80061; 80053; 82550; 82553; 83690; 83735; 84484; 85025; 85610; 85730; 71020; 71275; 74177; 78452; G0378 ×2; A9500; Q9967; J1650; J1170; J2785

== ENCOUNTER → 2016-08-26 | Outpatient (CLI) | payer OTHER ==
[2016-08-26 13:05] VITALS: BP 128/97; PULSE 88; RESP 16; TEMP 98.7
[2016-08-26 13:57] VITALS: BMI 33.3
--- NOTE | 2016-09-23 09:13 | P.BASOAP ---
Subjective Principal diagnosis: Morbid Obesity Sever DJD Obstructive sleep apnea Date of service 08/26/16 Patient was admitted with chest pain. It was non cardiac and related to stress. SHe presents today reporting that she has not been following her diet and has actually gained weight. No nausea, vomiting or reflux. Ambulating ok but limited by her DJD. Objective - Vital Signs Vital signs: Vital Signs Temp 98.7 F 08/26/16 13:03 Pulse 88 08/26/16 13:03 Resp 16 08/26/16 13:03 BP 128/97 08/26/16 13:03 Pulse Ox - Constitutional General appearance: Present: average body habitus, cooperative - EENT Eyes: Present: EOMI, PERRLA - Neck Neck: Present: normal ROM - Respiratory Details: No dyspnea or use of accessory muslces of respiration - Gastrointestinal General gastrointestinal: Present: normal bowel sounds, soft. Absent: organomegaly, tenderness, ventral hernia - Integumentary Integumentary: Absent: calor, cellulitis, cyanotic, decreased turgor - Neurologic Neurologic: Present: CNII-XII intact. Absent: focal deficits - Musculoskeletal Musculoskeletal: Present: gait normal - Psychiatric Psychiatric: Present: A&O x's 3, appropriate affect, intact judgment & insight Assessment/Plan (1) Chest pain (2) Morbid (severe) obesity due to excess calories (3) Obstructive sleep apnea (4) Osteoarthritis of right knee Plan: Date: 08/26/16 Initial Weight: 116.528 kg Initial BMI: 44.1 Current Weight: 87.906 kg Current BMI: 33.3 Type of Surgery: Sleeve Gastrectomy 11/29/15 Patient has returned with some weight regain since the last time. She will visit with the manager rental and work on getting back in track. She will be seen in follow up in 3 months.
== END | disposition home or self-care (01) ==
LOC: BARWHC3 12:51
PROVIDERS: ATTEND Surgery
DX: E66.01 Morbid (severe) obesity due to excess calories (principal); Z71.3 Dietary counseling and surveillance; Z68.33 Body mass index [BMI] 33.0-33.9, adult; M17.11 Unilateral primary osteoarthritis, right knee
CPT/HCPCS: 97803; G0463; 99211

== ENCOUNTER → 2016-11-18 | Outpatient (CLI) | payer OTHER ==
[2016-11-18 13:52] VITALS: BMI 34.0
[2016-11-18 14:51] LABS: ALT 32 U/L (9-52); AST 21 U/L (14-36); Alkaline Phosphatase 79 U/L (38-126); Anion Gap 13 mmol/L; Blood Urea Nitrogen 20 mg/dL (7-17); Calcium 10.1 mg/dL (8.4-10.2); Carbon Dioxide 30 mmol/L (22-30); Chloride 101 mmol/L (98-107); Glucose 86 mg/dL (74-99); Iron 66 ug/dL (37-170); Magnesium 1.9 mg/dL (1.6-2.3); Non-African American GFR(MDRD) >60 (>60 ml/min/1.73 sqM); Phosphorous 4.6 mg/dL (2.5-4.5); Potassium 4.4 mmol/L (3.5-5.1); Sodium 144 mmol/L (137-145); Total Bilirubin 0.7 mg/dL (0.2-1.3); Total Protein 7.7 g/dL (6.3-8.2)
[2016-11-18 14:54] LABS: CH 31.3; CHCM 35.6; HCT 42.9 % (34.0-46.0); HDW 3.03; HGB 14.9 gm/dL (11.4-16.0); MCH 30.6 pg (25.0-35.0); MCHC 34.7 g/dL (31.0-37.0); MCV 88.3 fL (80.0-100.0); RBC 4.85 m/uL (3.80-5.40); RDW 14.3 % (11.5-15.5); WBC 5.5 k/uL (3.8-10.6)
[2016-11-18 15:02] LABS: % Iron Saturation 20.8 % (20-50); Prealbumin 29 mg/dL (18-36); Total Iron Binding Capacity 318 ug/dL (265-497)
[2016-11-18 15:56] LABS: Vitamin B12 723 pg/mL (239-931)
[2016-11-22 10:51] LABS: Selenium 151 mcg/L (63-160)
== END | disposition home or self-care (01) ==
LOC: BARWHC3 12:57
PROVIDERS: ATTEND Surgery
DX: E66.01 Morbid (severe) obesity due to excess calories (principal); K90.89 Other intestinal malabsorption; E55.9 Vitamin D deficiency, unspecified; K90.9 Intestinal malabsorption, unspecified; R74.8 Abnormal levels of other serum enzymes
CPT/HCPCS: 80053; 82306; 82525; 82607; 82728; 82746; 83540; 83550; 83735; 84100; 84134; 84255; 84425; 84443; 84590; 84630; 85027; 97803

== ENCOUNTER → 2016-12-25 | Outpatient (CLI) | payer OTHER ==
--- NOTE | 2016-12-25 11:10 | MM ---
Reason for exam: additional evaluation requested from prior study. History: Patient is postmenopausal. Family history of breast cancer in paternal aunt at age 70. Took estrogen for 1 year. Took progesterone for 1 year. Physical Findings: Nurse did not find any significant physical abnormalities on exam. MG 3D Diag Mammo W/Cad BUSTER Bilateral CC and MLO view(s) were taken. The breast tissue is heterogeneously dense. This may lower the sensitivity of mammography. No suspicious abnormality. Post biopsy change on the left breast. No significant new findings when compared with previous films. These results were verbally communicated with the patient and result sheet given to the patient on 12/25/16. ASSESSMENT: Benign, BI-RAD 2 RECOMMENDATION: Routine screening mammogram of both breasts in 1 year. Manage on a clinical basis with regard to left breast pain. If focal diagnostic mammogram/ultrasound could be performed.
== END | disposition home or self-care (01) ==
LOC: RADMAMWWP 10:00
PROVIDERS: ATTEND Family Medicine
DX: R92.8 Other abnormal and inconclusive findings on diagnostic imaging of breast (principal)
CPT/HCPCS: G0204; G0279

== ENCOUNTER → 2017-04-14 | Outpatient (CLI) | payer OTHER ==
--- NOTE | 2017-04-14 15:11 | PN ---
PROGRESS NOTE This is a 51-year-old female patient is coming in for followup regarding her obstructive sleep apnea. Her last evaluation was around May of 2014. At that time, the patient was diagnosed having severe ROHAN with an AHI of 118 and the patient was given CPAP at a pressure of 15 cm of water. Treatment was successful. The patient meanwhile underwent gastric sleeve. She used to weigh around 250 pounds and currently she is down to 197. She is feeling very well for now and she is interested in reevaluation. Note that her compliancy report that was pulled from her CPAP machine between 03/14/2017 and 04/12/2017 showed that the patient was still very compliant with CPAP machine and she has been averaging 7 hours and 37 minutes of CPAP use per night and her AHI is down to 0.1. Occasional increased leaks around the mask which is an AirFit P10 nose pillow. She is considering also a readjustment in CPAP pressure if there is residual obstructive sleep apnea. Otherwise she is doing well. She has no specific complaints. Her sleep quality is good and she is waking up refreshed and alert during the day. She still has some symptoms of degenerative arthritis. She also has history of coronary disease, hypertension and fibromyalgia. BP is 135/88, pulse 80, respirations 16, temp 97.8. Saturation 97% on room air. Weight is 197. Height is 5 feet 4 inches. Neck size 16 and three quarters of an inch. General appearance calm comfortable. Head is atraumatic, normocephalic. Neck is crowding of posterior pharynx. There is no goiter or neck masses. Mallampati class 4. Lungs clear to auscultation. Heart sounds regular rate and rhythm. Normal S1, S2. No S3. No murmurs. Abdomen is soft, nontender. No organomegaly. EXTREMITIES: No edema. No cyanosis or clubbing. Skin are no ulcers, wounds or lesions. Neurological: AO x3. There is no focal neurological deficits. Psych: Appropriate mood and affect. IMPRESSION: 1. Severe symptomatic obstructive sleep apnea with an AHI of 118 and the patient has undergone successful CPAP therapy at a pressure of 15 cm of water. 2. Morbid obesity status post gastric sleeve with significant amount loss. Current BMI 33.1. 3. Hypersomnia recovered. 4. Coronary artery disease. 5. Hypertension. 6. Degenerative arthritis. 7. Fibromyalgia. PLAN: Will need a re-evaluation. The patient will have a home sleep study to re-evaluate the severity of sleep apnea. It is possible that the patient has recovered from her ROHAN especially with her significant weight loss. Based on that, home sleep study will be done and we will decide whether ongoing CPAP therapy is needed. If so, the patient may need a readjustment on her CPAP pressure in light of her significant weight loss. We will continue to follow. CHIKI / KEELEYN: [id number] /
== END | disposition home or self-care (01) ==
LOC: SLEEP 13:36
PROVIDERS: ATTEND Internal Medicine Critical Care Medicine
DX: G47.33 Obstructive sleep apnea (adult) (pediatric) (principal); E66.01 Morbid (severe) obesity due to excess calories; I25.10 Atherosclerotic heart disease of native coronary artery without angina pectoris; I10 Essential (primary) hypertension; M79.7 Fibromyalgia; M19.90 Unspecified osteoarthritis, unspecified site; Z99.89 Dependence on other enabling machines and devices; Z98.84 Bariatric surgery status; Z68.33 Body mass index [BMI] 33.0-33.9, adult

== ENCOUNTER → 2017-05-13 | Outpatient (CLI) | payer OTHER ==
--- NOTE | 2017-05-13 14:42 | CT ---
EXAMINATION TYPE: CT abdomen pelvis wo con DATE OF EXAM: 05/13/2017 HISTORY: Bilateral flank pain for last [address] DLP: 1079 mGycm. Automated Exposure Control for Dose Reduction was Utilized. TECHNIQUE: CT scan of the abdomen and pelvis is performed without oral or IV contrast. COMPARISON: CT abdomen and pelvis July 31, 2016 FINDINGS: Within the limitations of a non-contrast study, the following observations are made. LUNG BASES: Heart size is upper limits of normal. LIVER/GB: Cholecystectomy clips are redemonstrated. PANCREAS: No significant abnormality is seen. SPLEEN: No significant abnormality is seen. ADRENALS: No significant abnormality is seen. KIDNEYS: No renal stones or hydronephrosis is seen bilaterally. No intraluminal calculus in the bladd er is seen. BOWEL: Surgical sutures from gastric sleeve procedure are redemonstrated. There is no suspicious smal l or large bowel dilatation. A few diverticula are seen in the sigmoid colon. There is no CT evidence for acute diverticulitis. GENITAL ORGANS: Uterus is surgically absent or markedly atrophic in appearance. LYMPH NODES: No greater than 1cm abdominal or pelvic lymph nodes are appreciated. OSSEOUS STRUCTURES: There is mild to moderate multilevel spurring in visualized thoracic spine. There is mild disc space narrowing noted lower lumbar levels. OTHER: There is mild atherosclerotic calcification of aorta extending into branch vessels. There is s table small fat-containing umbilical hernia. IMPRESSION: No renal stones or hydronephrosis is seen bilaterally. No significant new or acute findin g is seen to account for patient's symptoms. Results communicated to ordering physician assistant librarian via telephone by diagnostic technologist shortly after e xam was completed.
== END | disposition home or self-care (01) ==
LOC: RADCTMAIN 14:13
PROVIDERS: ATTEND Physician Assistant
DX: N23 Unspecified renal colic (principal)
CPT/HCPCS: 74176

== ENCOUNTER → 2018-01-14 | Outpatient (CLI) | payer OTHER ==
--- NOTE | 2018-01-18 08:48 | MM ---
Reason for exam: screening (asymptomatic). Last mammogram was performed 1 year and 1 month ago. History: Patient is postmenopausal. Family history of breast cancer in paternal aunt at age 70. Took estrogen for 1 year. Took progesterone for 1 year. Physical Findings: A clinical breast exam by your physician is recommended on an annual basis and results should be correlated with mammographic findings. MG 3D Screening Mammo W/Cad Bilateral CC and MLO view(s) were taken. Prior study comparison: December 25, 2016, bilateral MG 3d diag mammo w/cad BUSTER. The breast tissue is heterogeneously dense. This may lower the sensitivity of mammography. Post biopsy changes left subareolar. No significant changes when compared with prior studies. ASSESSMENT: Benign, BI-RAD 2 RECOMMENDATION: Routine screening mammogram of both breasts in 1 year.
== END | disposition home or self-care (01) ==
LOC: RADMAMWWP 11:03
PROVIDERS: ATTEND Family Medicine
DX: Z12.31 Encounter for screening mammogram for malignant neoplasm of breast (principal)
CPT/HCPCS: 77063; 77067

== ENCOUNTER 2018-02-10 10:52 | Day surgery (SDC) | payer OTHER ==
[2018-02-08 09:45] VITALS: BMI 35.4
--- NOTE | 2018-02-10 10:32 | P.GSHP ---
History of Present Illness H&P Date: 02/10/18 CHIEF COMPLAINT: GERD HISTORY OF PRESENT ILLNESS: The patient is a 52-year-old female who presents reports gastroesophageal reflux disease. Upper endoscopy was offered for further evaluation and management. PAST MEDICAL HISTORY: Please see list. PAST SURGICAL HISTORY: Please see list. MEDICATIONS: Please see list. ALLERGIES: Please see list. SOCIAL HISTORY: No illicit drug use FAMILY HISTORY: No reports of Crohn disease or ulcerative colitis. REVIEW OF ORGAN SYSTEMS: CONSTITUTIONAL: No reports of fevers or chills. GI: Denies any blood in stools or constipation. PHYSICAL EXAM: VITAL SIGNS: Stable GENERAL: Well-developed and pleasant in no acute distress. HEENT: No scleral icterus. Extraocular movements grossly intact. Moist buccal mucosa. NECK: Supple without lymphadenopathy. CHEST: Unlabored respirations. Equal bilateral excursions. CARDIOVASCULAR: Regular rate and rhythm. Distal 2+ pulses. ABDOMEN: Soft, nondistended. MUSCULOSKELETAL: No clubbing, cyanosis, or edema. ASSESSMENT: 1. Gastroesophageal reflux disease PLAN: 1. Recommend proceeding with an upper endoscopy Past Medical History Past Medical History: Chest Pain / Angina, Fibromyalgia, GERD/Reflux, Hypertension, Osteoarthritis (OA), Sleep Apnea/CPAP/BIPAP, Thyroid Disorder Additional Past Medical History / Comment(s): CURRENT ABD. PAIN, HX OF HIATAL HERNIA, PREV HX OF HTN, HAS HAD WT LOSS SO NO LONGER ON MEDICATION History of Any Multi-Drug Resistant Organisms: None Reported Past Surgical History: Appendectomy, Bariatric Surgery, Breast Surgery, Section, Cholecystectomy, Heart Catheterization, Hysterectomy, Joint Replacement Additional Past Surgical History / Comment(s): Total L knee arthroplasty.AND MANIPULATION Other SX: C/S x 3, TOTAL RIGHT KNEE 04/12/14-then manipulation of rt knee. REVISION OF TOTAL RT KNEE, D&C. LEFT BREAST BIOSPIES, Sleeve gastrectomy 11/29/15 Past Anesthesia/Blood Transfusion Reactions: Previous Problems w/ Anesthesia, Motion Sickness, Postoperative Nausea & Vomiting (PONV) Additional Past Anesthesia/Blood Transfusion Reaction / Comment(s): STATES SHE STOPPED BREATHING DURING SURGERY FOR TOTAL KNEE REPLACEMENT(@MPH 04/2014) DUE TO SLEEP APNEA Smoking Status: Never smoker - Past Family History Father Family Medical History: Coronary Artery Disease (CAD) Additional Family Medical History / Comment(s): Father has had CABG. Mother Family Medical History: Musculoskeletal Disorder Additional Family Medical History / Comment(s): Mother has MS. Medications and Allergies Home Medications Medication Instructions Recorded Confirmed Type RX: ALPRAZolam 1 mg PO BID PRN 03/08/14 02/08/18 History RX: traZODone HCL [Desyrel] 100 - 200 mg PO HS 03/08/14 02/08/18 History RX: Levothyroxine Sodium 25 mcg PO QAM 09/22/14 02/08/18 History [Synthroid] RX: DULoxetine HCL [Cymbalta] 60 mg PO BID 06/12/15 02/08/18 History RX: Cholecalciferol [Vitamin D3] 5,000 unit PO DAILY 06/26/15 02/08/18 History RX: Nitroglycerin Sl Tabs 0.4 mg SUBLINGUAL Q5M PRN #25 tab 08/01/16 02/08/18 Rx [Nitrostat] RX: Biotin 10,000 mcg PO DAILY 02/08/18 02/08/18 History RX: Meloxicam 15 mg PO DAILY 02/08/18 02/08/18 History RX: Vitamin B Complex 1 each PO DAILY 02/08/18 02/08/18 History lamoTRIgine [LaMICtal] 100 mg PO BID 02/08/18 02/08/18 History Allergies Allergy/AdvReac Type Severity Reaction Status Date / Time morphine AdvReac Itching Verified 02/08/18 09:40 Qzkfbts-Pxk-Igl Reductase AdvReac muscle Verified 02/08/18 09:40 Inhibitor aches
[~2018-02-10 10:52] MED LIST: DEXAMETHASONE SOD PHOSPHATE 10 MG/ML 1 ML VIAL IV ONE; HYDROmorphone 0.5 MG/0.5 ML SYRINGE IVP PRN; LACTATED RINGERS 1,000 ML IV SCH; LIDOCAINE 1% 20 ML VIAL (10MG/ML) FOR IV START INTRADERMA PRN; ONDANSETRON 4 MG/2 ML VIAL IVP ONE; SCOPOLAMINE 1.5MG/72HR PATCH TRANSDERM ONE
[2018-02-10 11:44] VITALS: RESP 16; TEMP 98.7
[2018-02-10] MEDS ORDERED: LIDOCAINE 1% INJ 10MG/ML (20 ML MDV) ONE (12:13)
[2018-02-10] MEDS ORDERED: PROPOFOL 10 MG/ML 20 ML VIAL IV ONE (12:13)
--- NOTE | 2018-02-10 12:27 | P.PCN ---
Date of Procedure: 02/10/18 Description of Procedure: PREOPERATIVE DIAGNOSIS: Status post sleeve gastrectomy. Gastroesophageal reflux disease. POSTOPERATIVE DIAGNOSIS: Status post sleeve gastrectomy. Gastroesophageal reflux disease. Diaphragmatic hiatal hernia without obstruction. Chronic superficial gastritis. OPERATION: Esophagogastroduodenoscopy with cold forceps biopsies along the antrum. SURGEON: Mady Fierro MD ANESTHESIA: MAC. INDICATIONS: The patient is a 52-year-old female who presents with a history of sleeve gastrectomy with gastroesophageal reflux disease. Benefits and risks of the procedure were described. Informed consent was obtained. DESCRIPTION: The patient was brought into the endoscopy suite and laid in the left lateral decubitus position. An Olympus gastroscope was passed along the posterior oropharynx down to the distal esophagus where the squamocolumnar junction was at 37 cm from the incisors remarkable for chronic erosive esophagitis, LA grade A without ulceration. The stomach was entered where she had a 2-cm hiatal hernia with a diaphragmatic hiatus found at 39 cm, sliding type. The sleeve reservoir moderately large allowing easy retroflexion of the scope to view the lower esophageal valve. Chronic gastritis albeit mild was found along the antrum with cold biopsies obtained. The first through third portion of the duodenum was examined and unremarkable. The scope again had easily retroflexed along the antrum. The stomach was desufflated. The patient tolerated the procedure well. FINDINGS: No acute ulceration found along her sleeve. No corkscrewing sleeve gastrectomy. Squamocolumnar junction at 37 cm from the incisors. Diaphragmatic hiatus at 39 cm. Moderate large gastric reservoir with prior history of sleeve gastrectomy allowing easy retroflexion of the gastroscope to view the lower esophageal valve. Hiatal hernia 2 cm, sliding type LA grade A erosive esophagitis. No active duodenitis. Chronic gastritis. RECOMMENDATIONS: Upper endoscopy as needed. May benefit from antireflux operation. Continue with current therapy. Plan - Discharge Summary New Discharge Prescriptions: No Action traZODone HCL [Desyrel] 100 - 200 mg PO HS ALPRAZolam 1 mg PO BID PRN PRN Reason: Anxiety Levothyroxine Sodium [Synthroid] 25 mcg PO QAM DULoxetine HCL [Cymbalta] 60 mg PO BID Cholecalciferol [Vitamin D3] 5,000 unit PO DAILY Nitroglycerin Sl Tabs [Nitrostat] 0.4 mg SUBLINGUAL Q5M PRN #25 tab PRN Reason: Chest Pain lamoTRIgine [LaMICtal] 100 mg PO BID Meloxicam 15 mg PO DAILY Vitamin B Complex 1 each PO DAILY Biotin 10,000 mcg PO DAILY Discharge Medication List ALPRAZolam 1 mg PO BID PRN 03/08/14 [History] traZODone HCL [Desyrel] 100 - 200 mg PO HS 03/08/14 [History] Levothyroxine Sodium [Synthroid] 25 mcg PO QAM 09/22/14 [History] DULoxetine HCL [Cymbalta] 60 mg PO BID 06/12/15 [History] Cholecalciferol [Vitamin D3] 5,000 unit PO DAILY 06/26/15 [History] Nitroglycerin Sl Tabs [Nitrostat] 0.4 mg SUBLINGUAL Q5M PRN #25 tab 08/01/16 [Rx ] Biotin 10,000 mcg PO DAILY 02/08/18 [History] Meloxicam 15 mg PO DAILY 02/08/18 [History] Vitamin B Complex 1 each PO DAILY 02/08/18 [History] lamoTRIgine [LaMICtal] 100 mg PO BID 02/08/18 [History]
[2018-02-10 13:00] VITALS: BP 128/88; PULSE 76
== END 2018-02-10 13:22 | disposition home or self-care (01) ==
LOC: ORWHC2ENDO 10:52
PROVIDERS: ATTEND Surgery Plastic and Reconstructive Surgery
DX: K29.50 Unspecified chronic gastritis without bleeding (principal); K44.9 Diaphragmatic hernia without obstruction or gangrene; K21.0 Gastro-esophageal reflux disease with esophagitis; K22.10 Ulcer of esophagus without bleeding; Z98.84 Bariatric surgery status; Z90.3 Acquired absence of stomach [part of]; M79.7 Fibromyalgia; I10 Essential (primary) hypertension; M19.90 Unspecified osteoarthritis, unspecified site; E07.9 Disorder of thyroid, unspecified; G47.33 Obstructive sleep apnea (adult) (pediatric); F41.9 Anxiety disorder, unspecified; G89.29 Other chronic pain; Z99.89 Dependence on other enabling machines and devices; Z79.890 Hormone replacement therapy; Z79.1 Long term (current) use of non-steroidal anti-inflammatories (NSAID); Z79.899 Other long term (current) drug therapy; Z88.8 Allergy status to other drugs, medicaments and biological substances; Z88.5 Allergy status to narcotic agent; Z90.49 Acquired absence of other specified parts of digestive tract; Z90.710 Acquired absence of both cervix and uterus; Z96.653 Presence of artificial knee joint, bilateral
CPT/HCPCS: 88305; 43239; J2001; J2704

== ENCOUNTER → 2018-03-10 | Outpatient (CLI) | payer OTHER ==
--- NOTE | 2018-03-10 13:48 | P.PN ---
Subjective Progress Note Date: 03/10/18 HPI: She report dysphagia and troubles with sleep from her sleeve gastrectomy. She has regained 20 pounds 1 year ago. She has heartburn and reflux from the band. Irving reports right upper quadrant to right upper back pain that has been going on for over 1 month. ABDOMEN: Soft A/P: 1. Bariatric labs for today. 2. Hiatal hernia repair versus revision to gastric bypass reviewed. 3. US of the right upper quadrant and labs for pancreatitis described. 4. Recommend esophagram
[2018-03-10 14:43] LABS: HCT 42.6 % (34.0-46.0); HGB 14.1 gm/dL (11.4-16.0); MCHC 33.1 g/dL (31.0-37.0); MCV 87.6 fL (80.0-100.0); Platelet Count 200 k/uL (150-450); RBC 4.87 m/uL (3.80-5.40); RDW 13.3 % (11.5-15.5)
[2018-03-10 14:51] LABS: INR 0.9 (<1.2); Partial Thromboplastin Time 25.7 sec (22.0-30.0)
[2018-03-10 17:23] VITALS: BP 127/88; PULSE 76; TEMP 98; BMI 35.9
[2018-03-10 18:57] LABS: Parathyroid Hormone Intact 78.9 pg/mL (14.0-72.0)
[2018-03-10 21:08] LABS: Iron Saturation 17.81 (12.00-45.00)
[2018-03-10 21:17] LABS: Vitamin D 25 Hydroxy 41.6 ng/mL (30.0-100.0)
[2018-03-10 21:31] LABS: Albumin/Globulin Ratio 2.5 (1.20-2.10); Anion Gap 9.6 mmol/L (4.00-12.00); Carbon Dioxide 28.4 mmol/L (21.6-31.8); Folate, Serum 16.7 ng/mL; LDL Cholesterol,Calculated 155.8 mg/dL (0.0-131.0); Phosphorus 4.8 mg/dL (2.4-5.1); Potassium 4.6 mmol/L (3.5-5.5); Total Bilirubin 0.5 mg/dL (0.3-1.2); VLDL Calculation 33.2 mg/dL (5.00-40.00)
[2018-03-10 22:29] LABS: Hemoglobin A1C 4.8 % (4.0-6.0)
[2018-03-11 13:56] LABS: Zinc, Serum 66 ug/dL (60-130)
[2018-03-12 08:12] LABS: Vitamin B1 68 ug/L (38-122)
[2018-03-12 08:16] LABS: Vitamin A 65 ug/dL (38-106)
== END | disposition home or self-care (01) ==
LOC: BARWHC3 12:57
PROVIDERS: ATTEND Surgery Plastic and Reconstructive Surgery
DX: K21.9 Gastro-esophageal reflux disease without esophagitis (principal); R13.10 Dysphagia, unspecified; R12 Heartburn; R10.11 Right upper quadrant pain; M54.9 Dorsalgia, unspecified; E21.1 Secondary hyperparathyroidism, not elsewhere classified; E89.1 Postprocedural hypoinsulinemia; D50.9 Iron deficiency anemia, unspecified; K90.9 Intestinal malabsorption, unspecified; E55.9 Vitamin D deficiency, unspecified; K76.9 Liver disease, unspecified; N19 Unspecified kidney failure; K50.90 Crohn's disease, unspecified, without complications; E66.01 Morbid (severe) obesity due to excess calories; Z68.35 Body mass index [BMI] 35.0-35.9, adult; Z98.84 Bariatric surgery status
CPT/HCPCS: 84255; 84134; 84425; 80061; 80053; 82607; 82728; 82525; 82746; 83540; 83550; 83735; 84100; 84443; 84590; 84630; 85027; 85610; 85730; 82306; 83970; 83036; G0463; 99211

== ENCOUNTER → 2018-03-25 | Outpatient (CLI) | payer OTHER ==
--- NOTE | 2018-03-25 09:17 | US ---
EXAMINATION TYPE: US abdomen limited DATE OF EXAM: 03/25/2018 COMPARISON: NONE CLINICAL HISTORY: R10.11 RUQ PAIN. EXAM MEASUREMENTS: Liver Length: 13.8 cm Gallbladder Wall: Surgically absent CBD: 0.4 cm Right Kidney: 10.1 x 4.1 x 5.1 cm Pancreas: Obscured by bowel gas Liver: Increased attenuation Gallbladder: Surgically absent Evidence for sonographic Evangelista's sign: no CBD: wnl Right Kidney: wnl IMPRESSION: 1. Fatty hepatic infiltration.
== END | disposition home or self-care (01) ==
LOC: RADUSWWP 07:49
PROVIDERS: ATTEND Surgery Plastic and Reconstructive Surgery
DX: K76.0 Fatty (change of) liver, not elsewhere classified (principal); R10.11 Right upper quadrant pain; R10.13 Epigastric pain
CPT/HCPCS: 76705

== ENCOUNTER → 2018-05-19 | Outpatient (CLI) | payer OTHER ==
--- NOTE | 2018-05-19 14:57 | P.PN ---
Subjective Progress Note Date: 05/19/18 HPI: She reports severe GERD. She has troubles with her sleeve including moderate size sleeve. PLAN: 1. Will proceed with robotic hiatal hernia repair 2. She does need an EKG 3. Labs reviewed.
[2018-05-19 15:02] VITALS: BP 123/82; PULSE 90; TEMP 97.2; BMI 36.8
== END ==
LOC: BARWHC3 13:36
PROVIDERS: ATTEND Surgery Plastic and Reconstructive Surgery
DX: K21.9 Gastro-esophageal reflux disease without esophagitis (principal)
CPT/HCPCS: 99211

== ENCOUNTER → 2018-05-19 | Outpatient (CLI) | payer OTHER | END | disposition home or self-care (01) | LOC: LABWHC1 15:10 | PROVIDERS: ATTEND Surgery Plastic and Reconstructive Surgery | DX: Z01.818 Encounter for other preprocedural examination (principal); I10 Essential (primary) hypertension; K44.9 Diaphragmatic hernia without obstruction or gangrene | CPT/HCPCS: 36415; 93005 ==

== ENCOUNTER 2018-06-07 09:17 | Observation (INO) | payer OTHER ==
[2018-06-02 11:34] VITALS: BMI 38.0
--- NOTE | 2018-06-07 07:51 | P.GSHP ---
History of Present Illness H&P Date: 06/07/18 DATE OF SERVICE: 06/07/2018 CHIEF COMPLAINT: Gastroesophageal reflux disease HISTORY OF PRESENT ILLNESS: Helen Ross is a 52-year-old female who reports dysphagia from her sleeve gastrectomy. She reports pre-existing heartburn. Now she presents with complications from her bariatric surgery. At height of 5 feet 4 inches, her ideal body weight is 144 pounds. She comes in 214 pounds from 209 pounds, 3 months ago. Her body mass index was 35.9. PAST MEDICAL HISTORY: 1. Morbid obesity due to excess calories 2. Hypothyroidism 3. Osteoarthritis of the knees. 4. Hypertensive heart disease. 5. Depressive disorder 6. Obstructive sleep apnea 7. Fibromyalgia PAST SURGICAL HISTORY: 1. Bilateral knee arthroplasty 2. Sleeve gastrectomy 3. Lap band surgery 4. Cholecystectomy 5. Heart catheterization 6. Appendectomy 7. section 8. Hysterectomy 9. D&C 10. Left breast biopsy HOME MEDICATIONS: See list ALLERGIES: See list SOCIAL HISTORY: No tobacco use. FAMILY HISTORY: No family history of ulcerative colitis disease or Crohn's disease. Family history of morbid obesity. No lupus in the family. No reports of stomach or esophageal cancer. REVIEW OF ORGAN SYSTEMS: CONSTITUTIONAL: At height of 5 feet 4 inches, her ideal body weight is 144 pounds. HEENT: Denies any active troubles with vision or hearing. Has some troubles with swallowing. ENDOCRINE: No diabetes. Has hypothyroidism. CARDIOVASCULAR: No reports of palpitations or heart attacks or chest pain. RESPIRATORY: Has daytime somnolence. Has asthma. GI: Denies any bright red blood per rectum. No diarrhea. Has constipation. MUSCULOSKELETAL: Has lower back pain and joint pain. Has osteoarthritis of the knees. NEURO: No headaches. Has seizure disorders. PSYCH: Has depression. No suicidal ideation. RHEUMATOLOGIC: No lupus. No rheumatoid arthritis. HEMATOLOGIC: Denies any abnormal bleeding or bruising. No personal history of DVTs. SKIN: No rash. No skin cancer. PHYSICAL EXAM: VITAL SIGNS: Height 5 foot 4 inches, weight 214.5 pounds. GENERAL: Well-developed in no acute distress. HEENT: No scleral icterus. Extraocular movements grossly intact. Hears conversational speech. No nasal drainage. NECK: Supple without lymphadenopathy. CHEST: Nonlabored respirations with equal bilateral excursions. CARDIOVASCULAR: Regular rate and regular rhythm. Distal 2+ pulses. ABDOMEN: Obese, soft, nontender, nondistended. MUSCULOSKELETAL: No clubbing, cyanosis. Gross strength 5/5 distal lower extremities. NEURO: No focal or lateralizing signs. Cranial nerves 2 through 12 grossly within normal limits. PSYCH: Appropriate affect. Alert and oriented to person, place and time. SKIN: Good skin turgor. Well perfused. ASSESSMENT: 1. Morbid obesity due to excess calories 2. Body mass index of 35.9 3. Osteoarthritis of the knees. 4. Hypertensive heart disease. 5. Depressive disorder 6. Obstructive sleep apnea 7. Fibromyalgia 8. Hypothyroidism PLAN: 1. Recommend hiatal hernia repair for severity of reflux disease.Robotic assisted approach described. 2. Preoperative labs including complete metabolic panel and CBC with type and screen recommended. 3. DVT prophylaxis per [place] [facility]. 4. Antibiotic prophylaxis. 5. Inpatient hospitalization anticipated for more than 2 nights. 6. All questions and concerns were addressed with the patient. Past Medical History Past Medical History: Fibromyalgia, GERD/Reflux, Hyperlipidemia, Hypertension, Osteoarthritis (OA), Sleep Apnea/CPAP/BIPAP, Thyroid Disorder Additional Past Medical History / Comment(s): HIATAL HERNIA, PREV HX OF HTN-HAS HAD WT LOSS SO NO LONGER ON MEDICATION, History of Any Multi-Drug Resistant Organisms: None Reported Past Surgical History: Appendectomy, Bariatric Surgery, Breast Surgery, Section, Cholecystectomy, Heart Catheterization, Hysterectomy, Joint Replacement Additional Past Surgical History / Comment(s): lewis knee arthroplasty. lewis knee MANIPULATION, REVISION OF TOTAL RT KNEE, D&C. LEFT BREAST BIOSPIES x 2, Sleeve gastrectomy, bunionectomy left foot Past Anesthesia/Blood Transfusion Reactions: Previous Problems w/ Anesthesia, Motion Sickness, Postoperative Nausea & Vomiting (PONV) Additional Past Anesthesia/Blood Transfusion Reaction / Comment(s): STATES SHE STOPPED BREATHING DURING SURGERY FOR TOTAL KNEE REPLACEMENT(@MPH 04/2014) DUE TO SLEEP APNEA-anesthesia records on chart. Smoking Status: Never smoker - Past Family History Father Family Medical History: Coronary Artery Disease (CAD) Additional Family Medical History / Comment(s): Father has had CABG. Mother Family Medical History: No Reported History Additional Family Medical History / Comment(s): . Medications and Allergies Home Medications Medication Instructions Recorded Confirmed Type ALPRAZolam 1 mg PO BID 03/08/14 06/02/18 History traZODone HCL [Desyrel] 100 - 200 mg PO HS 03/08/14 06/02/18 History Levothyroxine Sodium [Synthroid] 25 mcg PO QAM 09/22/14 06/02/18 History DULoxetine HCL [Cymbalta] 60 mg PO BID 06/12/15 06/02/18 History Cholecalciferol [Vitamin D3] 5,000 unit PO DAILY 06/26/15 06/02/18 History Nitroglycerin Sl Tabs [Nitrostat] 0.4 mg SUBLINGUAL Q5M PRN #25 tab 08/01/16 Rx Biotin 10,000 mcg PO DAILY 02/08/18 06/02/18 History Meloxicam 15 mg PO DAILY 02/08/18 06/02/18 History Vitamin B Complex 1 each PO DAILY 02/08/18 06/02/18 History lamoTRIgine [LaMICtal] 100 mg PO QAM 02/08/18 06/02/18 History Omeprazole 40 mg PO DAILY 06/02/18 06/02/18 History lamoTRIgine [LaMICtal] 150 mg PO 2100 06/02/18 06/02/18 History Allergies Allergy/AdvReac Type Severity Reaction Status Date / Time morphine AdvReac Itching Verified 06/02/18 11:20 Jtlxfof-Mdd-Amn Reductase AdvReac muscle Verified 06/02/18 11:20 Inhibitor aches
[~2018-06-07 09:17] MED LIST changes: +CHLORHEXIDINE GLUCONATE 15 ML CUP MUCOUS MEM ONE; +ENOXAPARIN 40 MG/0.4 ML SYRINGE SQ STA; -HYDROmorphone 0.5 MG/0.5 ML SYRINGE IVP PRN; -LACTATED RINGERS 1,000 ML IV SCH; +MIDAZOLAM (PF) 2 MG/2 ML VIAL IV PRN; -ONDANSETRON 4 MG/2 ML VIAL IVP ONE; +PANTOPRAZOLE 40 MG/10 ML VIAL IV STA; -SCOPOLAMINE 1.5MG/72HR PATCH TRANSDERM ONE; +SCOPOLAMINE 1.5MG/72HR PATCH TRANSDERM STA; +fentaNYL (PF) 50 MCG/ML 2 ML AMP IV PRN
[2018-06-07] MEDS ORDERED: LACTATED RINGERS 1,000 ML IV ONE ×3 (09:56→13:44)
[2018-06-07] MEDS ORDERED: ONDANSETRON 4 MG/2 ML VIAL IVP ONE (09:57)
[2018-06-07] MEDS ORDERED: KETAMINE 10 MG/ML 20 ML VIAL ONE (11:25)
[2018-06-07] MEDS ORDERED: SUCCINYLCHOLINE CHLORIDE 100 MG/5 ML SYR IV ONE (11:25)
[2018-06-07] MEDS ORDERED: NEOSTIGMINE 1 MG/ML 10 ML VIAL ONE (11:25)
[2018-06-07] MEDS ORDERED: PROPOFOL 10 MG/ML 20 ML VIAL IV ONE (11:25)
[2018-06-07] MEDS ORDERED: ROCURONIUM BROMIDE 10 MG/ML 10 ML VIAL IV ONE (11:25)
[2018-06-07] MEDS ORDERED: MIDAZOLAM 2 MG/2 ML VIAL ONE (11:25)
[2018-06-07] MEDS ORDERED: HYDROmorphone (PF) 1 MG/ML ONE (11:25)
[2018-06-07] MEDS ORDERED: fentaNYL (PF) 50 MCG/ML 2 ML AMP ONE (11:25)
[2018-06-07] MEDS ORDERED: LIDOCAINE 1% INJ 10MG/ML (20 ML MDV) ONE (11:25)
[2018-06-07] MEDS ORDERED: GLYCOPYRROLATE 0.2 MG/ML 2 ML VIAL ONE (11:25)
[2018-06-07] MEDS: ceFAZolin IN SWFI 2 GM/20 ML SYRINGE IVP ONE ×2 (11:30→11:42)
[2018-06-07] MEDS ORDERED: BUPIVACAIN-EPI 0.5%-1:200,000 30 ML VIAL SQ ONE (12:05)
[2018-06-07] MEDS ORDERED: diphenhydrAMINE 50 MG/ML 1 ML VIAL IVP PRN (14:10)
[2018-06-07] MEDS ORDERED: NALOXONE 0.4 MG/ML 1 ML VIAL IV PRN (14:10)
--- NOTE | 2018-06-07 14:10 | P.OP ---
Date of Procedure: 06/07/18 Description of Procedure: SURGEON: KRISS AKHTAR MD AUT[employer]IC GLOVE FORMER: ADRIÁN Mccormick PREOPERATIVE DIAGNOSES: 1. Gastroesophageal reflux disease. 2. Paraesophageal hiatal hernia, midline. 3. Morbid obesity due to excess calories, BMI of 35.9 4. Epigastric abdominal pain. 5. History of sleeve gastrectomy. 6. Osteoarthritis of the knees. 7. Hypertensive heart disease. 8. Depressive disorder 9. Obstructive sleep apnea 10. Fibromyalgia 11. Hypothyroidism POSTOPERATIVE DIAGNOSES: 1. Gastroesophageal reflux disease. 2. Paraesophageal hiatal hernia, midline. 3. Morbid obesity due to excess calories, BMI of 35.9 4. Epigastric abdominal pain. 5. History of sleeve gastrectomy. 6. Osteoarthritis of the knees. 7. Hypertensive heart disease. 8. Depressive disorder 9. Obstructive sleep apnea 10. Fibromyalgia 11. Hypothyroidism 12. Severe peritoneal adhesions, epigastrium and right upper quadrant OPERATION: 1. Robotic-assisted da Oni Xi laparoscopic reduction and repair of incarcerated paraesophageal hiatal hernia, 8 x 4 cm, with [place] Biopatch A 8 x 8 cm, multiport 2. Robotic-assisted da Oni Xi extensive laparoscopic lysis of adhesions over 30 minutes 3. Intraoperative esophagogastroduodenoscopy ANESTHESIA: General with local anesthetic. ESTIMATED BLOOD LOSS: 5 mL Pathology: other (hiatal hernia sac) COMPLICATIONS: None. FINDINGS: 1. Thoracic length 22 cm. 2. Port placed 10 cm distal. 3. Incarcerated upper pole of the stomach within the mediastinum with moderate dissection performed with resection of mediastinal hernia sac. 4. 8 cm paraesophageal incarcerated diaphragmatic hiatal hernia with moderate dissection into the mediastinum. 5. [place] Biopatch A onlay mesh placed. 6. Severe perigastric adhesions including epigastric and right upper quadrant adhesions from previous surgery 7. Over 2.5 cm distal esophagus reduced into abdominal cavity 8. Moderately large gastric reservoir from prior sleeve gastrectomy INDICATIONS: The patient is a 52-year-old male who presents with epigastric abdominal pain, history of sleeve gastrectomy and gastroesophageal reflux with a symptomatic diaphragmatic hiatal hernia. Preoperative workup including upper endoscopy demonstrated sliding type hiatal hernia with large gastric reservoir. Given the severity of her symptoms, particularly of her symptomatic diaphragmatic hiatal hernia, she had elected for surgical intervention. Benefits and risks including bleeding, infection, recurrence, dysphagia, injury to the lung, need for further surgery was described at length. Informed consent was obtained. DESCRIPTION: The patient was brought into the operating room and placed in supine position. Preoperatively she had received Lovenox subcutaneously for DVT prophylaxis. After general induction, the abdomen was prepped and draped in standard sterile fashion. The patient had previously voided prior to coming to the operating room. [place] draping was placed along the abdomen. A timeout protocol was confirmed with the surgical team, for which the patient's name, procedure to be performed including DVT prophylaxis with bilateral SCDs, and preoperative antibiotics were also confirmed. A robotic da Oni Xi system was prepped and primed. At 15 cm from the xiphoid to just below the umbilicus, proposed port sites were marked with indelible marker along the left axillary line, left mid-clavicular line with each ports were marked 10 cm from each other. A 5 mm 0 degrees laparoscopic trocar entry was performed along the left upper quadrant. The abdomen was insufflated to 15 mmHg pressure he tolerated well. Diagnostic laparoscopy demonstrated no injury to bowel, viscera, or mesentery. Severe peritoneal adhesions of omentum to anterior abdominal wall was found along the epigastrium including right upper quadrant from previous open cholecystectomy. Additionally, port site hernias were reduced along the left upper quadrant. The liver surface was unremarkable. Hepatomegaly with a floppy liver was confirmed. No injury had occurred to the small bowel or viscera. Next, one 8 mm robotic port was placed along the right upper abdomen. An 8-mm port was were placed along the left lateral abdominal wall. The camera 8-mm port was maintained along the epigastrium via the hernia defect. Another 12 mm port was placed along the left upper abdominal wall after exchanging the 5 mm port. Please note that the ports were placed at least 20 cm away from the target anatomy. Care was taken to check that each robotic arm were safely away from collision with the bed or the patient. At the epigastrium, a medium sized Rudy liver retractor was placed under direct visualization with the [employer] Operator placed over the right shoulder of the patient. The patient was repositioned in reverse Trendelenburg position at 14-degrees after lowering the bed. The robot was docked above the right side of the patient. Using a grasper for arm 3, a grasper for arm 1, including vessel sealer for arm 2, the robotic system was docked and primed as described. Instruments were interchanged by the construction project assistant. I had sat at the console. Attention was brought to the severe intra-abdominal adhesions which were addressed using vessel sealer. Greater omentum to abdominal wall was divided without any injury to stomach or colon. A port site hernia along the left upper quadrant was also reduced and divided using vessel sealer. Extensive lysis of adhesions over 30 minutes were similarly used to address severe perigastric adhesions of the liver to the anterior surface of the stomach. The gastrohepatic ligament was cleaved using a vessel sealer. Next, the phrenoesophageal ligament was mobilized and the distal esophagus was mobilized circumferentially. An incarcerated hernia sac was found along the mediastinum. As a result, deep dissection well into the mediastinum was needed to free the proximal sleeve gastrectomy including distal esophagus. The dissection carried at least 8 cm into the mediastinum to free the stomach from the hernia sac. The left and right crura was identified. A moderate sized midline large hiatal hernia and sac was found incarcerated into the mediastinum. Significant mobilization of the distal to mid esophagus into the mediastinum was performed. Circumferentially, the hernia sac was excised and brought into the peritoneal cavity. Care was taken to avoid any gastrotomy to the incarcerated upper pole of the stomach. The measured defect was consistent with 8 cm axial length and 4 cm in width. After extensive dissection, the distal esophagus over 2 cm was brought into the abdominal cavity and measured with a ruler. Once the hiatus and crura was dissected, 2-0 VLOC suture was placed as a running suture to re-approximate the diaphragmatic hiatus posteriorly. To buttress the repair, a [place] Biopatch A was prepared along the back table and cut in a reed-hole fashion as to reinforce the repair as an underlay. The mesh was placed along the crural repair and tagged using 2-0 Surgidek. I went to the head of the bed to perform intraoperative esophagogastroduodenoscopy. I went to the head of the bed to perform intraoperative esophagogastroduodenoscopy. An Olympus gastroscope was passed through posterior oropharynx, where the GE junction was found at 42 cm from the incisors. The hiatus was confirmed at 40 cm from the incisors. The stomach was entered. A confirmed pre-existing large gastric reservoir was found. The duodenum was unremarkable. The stomach had been desufflated. No evidence of leaks were found either of the mucosal defects of the esophagus or stomach. This concluded the endoscopic portion of the case. The robot was undocked from the patient. I re-scrubbed into the case. All instruments and pneumoperitoneum were evacuated from the abdominal cavity. Incisions were reapproximated using 4-0 Monocryl in an interrupted subcuticular fashion. The 12-mm port site fascial defect was less than 8 mm in size. Liquid glue was applied to the skin. Local anesthetic was infiltrated in all wounds for postop analgesia. Multiple intra-abdominal films were obtained. At the end of the procedure, needle, sponge, and instrument count was verified correct by the surgical assistant certified. The patient had tolerated the procedure well and was taken to the postanesthesia unit in stable condition. Intraoperative films were reviewed with the patient's family who were pleased with the level of care.
[2018-06-07] MEDS ORDERED: NITROGLYCERIN SL TABS 0.4 MG TAB SUBLINGUAL PRN (14:13)
[2018-06-07] MEDS: LACTATED RINGERS 1,000 ML IV SCH (14:52)
[2018-06-07] MEDS: KETOROLAC 30 MG/ML 1 ML VIAL IVP SCH ×2 (14:59→23:19)
[2018-06-07] MEDS: ALBUTEROL NEBULIZED 2.5 MG/3 ML INHALATION SCH ×2 (16:01→20:07)
[2018-06-07] MEDS: AMPICILLIN-SULBACTAM 3 GM in SODIUM CHLORIDE 0.9% 100 ML IVPB SCH ×2 (16:59→23:18)
[2018-06-07] MEDS: 0.9% NACL WITH KCL 20 MEQ/L 1,000 ML IV SCH ×3 (17:03→23:30)
[2018-06-07] MEDS: SIMETHICONE 40 MG/0.6 ML DROPS 2,000 MG/30 ML BOTTLE PO SCH ×2 (17:03→21:05)
[2018-06-07] MEDS: HYOSCYAMINE ORAL DROPS 1.875 MG/15 ML BOTTLE PO SCH ×2 (17:04→23:18)
--- NOTE | 2018-06-07 17:38 | P.PN ---
Progress Note - Text Progress Note Date: 06/07/18 Patient seen and evaluated. Intraoperative image and findings reviewed. Liquid diet started and is tolerating. Post-bariatric diet stressed with no lifting over 4 pounds in 4 weeks. Disposition home tomorrow following esophogram. Follow -up in bariatric center June 11
[2018-06-07] MEDS: HYDROmorphone 1 MG/ML 1 ML SYRINGE IVP PRN (18:03)
[2018-06-07] MEDS: DULoxetine HCL 60 MG CAPSULE.DR PO SCH (20:59)
[2018-06-07] MEDS ORDERED: lamoTRIgine 100 MG TAB PO SCH (21:00)
[2018-06-07] MEDS ORDERED: traZODone HCL 100 MG TAB PO SCH (21:00)
[2018-06-08] MEDS: HYDROmorphone 1 MG/ML 1 ML SYRINGE IVP PRN (04:27)
[2018-06-08] MEDS: KETOROLAC 30 MG/ML 1 ML VIAL IVP SCH ×3 (06:24→13:39)
[2018-06-08] MEDS: HYOSCYAMINE ORAL DROPS 1.875 MG/15 ML BOTTLE PO SCH ×2 (06:24→13:38)
[2018-06-08] MEDS ORDERED: LEVOTHYROXINE 25 MCG TAB PO SCH (06:30)
[2018-06-08 07:20] VITALS: BP 92/58; RESP 15; TEMP 98.2
[2018-06-08 07:47] LABS: Basophils % (A) 0 %; Eosinophils # (A) 0.1 k/uL (0-0.7); Eosinophils % (A) 1 %; HCT 34.1 % (34.0-46.0); HGB 11.4 gm/dL (11.4-16.0); Lymphocytes # (A) 1.2 k/uL (1.0-4.8); Lymphocytes % (A) 20 %; MCH 29.5 pg (25.0-35.0); MCHC 33.5 g/dL (31.0-37.0); MCV 88.2 fL (80.0-100.0); Mean Platelet Volume 7.1; Monocytes # (A) 0.3 k/uL (0-1.0); Monocytes % (A) 5 %; Neutrophils # (A) 4.7 k/uL (1.3-7.7); Neutrophils % (A) 74 %; Platelet Count 161 k/uL (150-450); RBC 3.87 m/uL (3.80-5.40); RDW 13.4 % (11.5-15.5); WBC 6.3 k/uL (3.8-10.6)
[2018-06-08 08:02] LABS: Anion Gap 3 mmol/L; Blood Urea Nitrogen 10 mg/dL (7-17); Calcium 8.9 mg/dL (8.4-10.2); Carbon Dioxide 31 mmol/L (22-30); Chloride 107 mmol/L (98-107); Magnesium 1.8 mg/dL (1.6-2.3); Phosphorus 3.7 mg/dL (2.5-4.5); Sodium 141 mmol/L (137-145)
[2018-06-08] MEDS ORDERED: ENOXAPARIN 40 MG/0.4 ML SYRINGE SQ SCH (09:00)
[2018-06-08] MEDS ORDERED: PANTOPRAZOLE 40 MG/10 ML VIAL IV SCH (09:00)
[2018-06-08] MEDS ORDERED: lamoTRIgine 100 MG TAB PO SCH (09:00)
--- NOTE | 2018-06-08 09:03 | FL ---
EXAMINATION TYPE: FL UGI DATE OF EXAM: 06/08/2018 LIMITED UGI-ESOPHAGRAM: CLINICAL HISTORY: History of gastric sleeve surgery presents with hiatal hernia and epigastric pain status post Uvaldo fundoplication surgery yesterday. TECHNIQUE: Limited esophagram is performed utilizing 25 oz of Isovue-370. A total of 23 seconds of f luoroscopic time was utilized during procedure. 34 spot images are saved during procedure. Comparison: CT abdomen and pelvis May 13, 2017. FINDINGS: The patient swallowed contrast without difficulty or delay. Esophageal peristalsis and mo tility are felt satisfactory. There is good flow of contrast along the diaphragmatic hiatus into the stomach, there is no evidence of contrast extravasation to suggest leak. No hiatal hernia is seen. P atient remains asymptomatic. Surgical changes from gastric sleeve surgery seen better on CT. Cholecys tectomy clips are incidentally noted. IMPRESSION: No evidence of leak or significant obstruction status post Uvaldo fundoplication surgery earlier today.
[2018-06-08] MEDS: DULoxetine HCL 60 MG CAPSULE.DR PO SCH (09:15)
[2018-06-08] MEDS: 0.9% NACL WITH KCL 20 MEQ/L 1,000 ML IV SCH ×3 (09:15→13:38)
[2018-06-08] MEDS: SIMETHICONE 40 MG/0.6 ML DROPS 2,000 MG/30 ML BOTTLE PO SCH ×2 (09:16→13:38)
[2018-06-08] MEDS: ALBUTEROL NEBULIZED 2.5 MG/3 ML INHALATION SCH ×2 (09:35→12:41)
[2018-06-08] MEDS: LACTATED RINGERS 1,000 ML IV SCH (10:06)
[2018-06-08] MEDS ORDERED: diphenhydrAMINE 25 MG CAP PO PRN (12:55)
[2018-06-08 13:00] VITALS: PULSE 108
--- NOTE | 2018-06-08 14:47 | P.DS ---
Providers Date of admission: 06/07/18 23:56 Expected date of discharge: 06/08/18 Attending physician: Mady Fierro Primary care physician: Roly Dinero - Discharge Diagnosis(es) (1) History of sleeve gastrectomy Current Visit: Yes Status: Acute (2) GERD (gastroesophageal reflux disease) Current Visit: Yes Status: Acute (3) Peritoneal adhesions Current Visit: Yes Status: Acute (4) Dysphagia Current Visit: Yes Status: Acute (5) Paraesophageal hernia Current Visit: Yes Status: Acute (6) Morbid (severe) obesity due to excess calories Current Visit: No Status: Acute Hospital Course: 52-year-old female with a previous sleeve gastrectomy who has history of dysphagia and heartburn. Patient underwent laparoscopic reduction and repair of incarcerated paraesophageal hiatal hernia and lysis of adhesions on 06/07/2018. Post-op esophagram was completed with no evidence of obstruction. Patient is doing well postoperatively. Pain is tolerable. She is tolerating liquid diet. She has been up ambulating. Vital signs are stable. She is stable for discharge home today. Please see EMR for further hospital course details. Discharge Diagnosis: 1. Gastroesophageal reflux disease. 2. Paraesophageal hiatal hernia, midline. 3. Morbid obesity due to excess calories, BMI of 35.9 4. Epigastric abdominal pain. 5. History of sleeve gastrectomy. 6. Osteoarthritis of the knees. 7. Hypertensive heart disease. 8. Depressive disorder 9. Obstructive sleep apnea 10. Fibromyalgia 11. Hypothyroidism 12. Severe peritoneal adhesions, epigastrium and right upper quadrant Nurse practitioner note has been reviewed by physician. Signing provider agrees with the documented findings, assessment, and plan of care. Plan - Discharge Summary Discharge Rx Participant: Yes New Discharge Prescriptions: New Bisacodyl [Dulcolax] 5 mg PO DAILY PRN #10 tablet.dr PRN Reason: Constipation Ondansetron Odt [Zofran Odt] 4 mg PO Q8HR PRN #9 tab PRN Reason: Nausea Simethicone 40 mg/0.6 ml Drops [Mylicon Drops] 40 mg PO PCHS #30 ml Continue traZODone HCL [Desyrel] 100 - 200 mg PO HS ALPRAZolam 1 mg PO BID Levothyroxine Sodium [Synthroid] 25 mcg PO QAM DULoxetine HCL [Cymbalta] 60 mg PO BID Cholecalciferol [Vitamin D3] 5,000 unit PO DAILY Nitroglycerin Sl Tabs [Nitrostat] 0.4 mg SUBLINGUAL Q5M PRN #25 tab PRN Reason: Chest Pain lamoTRIgine [LaMICtal] 100 mg PO QAM Meloxicam 15 mg PO DAILY Vitamin B Complex 1 each PO DAILY Biotin 10,000 mcg PO DAILY lamoTRIgine [LaMICtal] 150 mg PO 2100 Omeprazole 40 mg PO DAILY Discharge Medication List ALPRAZolam 1 mg PO BID 03/08/14 [History] traZODone HCL [Desyrel] 100 - 200 mg PO HS 03/08/14 [History] Levothyroxine Sodium [Synthroid] 25 mcg PO QAM 09/22/14 [History] DULoxetine HCL [Cymbalta] 60 mg PO BID 06/12/15 [History] Cholecalciferol [Vitamin D3] 5,000 unit PO DAILY 06/26/15 [History] Nitroglycerin Sl Tabs [Nitrostat] 0.4 mg SUBLINGUAL Q5M PRN #25 tab 08/01/16 [Rx] Biotin 10,000 mcg PO DAILY 02/08/18 [History] Meloxicam 15 mg PO DAILY 02/08/18 [History] Vitamin B Complex 1 each PO DAILY 02/08/18 [History] lamoTRIgine [LaMICtal] 100 mg PO QAM 02/08/18 [History] Omeprazole 40 mg PO DAILY 06/02/18 [History] lamoTRIgine [LaMICtal] 150 mg PO 2100 06/02/18 [History] Bisacodyl [Dulcolax] 5 mg PO DAILY PRN #10 tablet 06/08/18 [Rx] Ondansetron Odt [Zofran Odt] 4 mg PO Q8HR PRN #9 tab 06/08/18 [Rx] Simethicone 40 mg/0.6 ml Drops [Mylicon Drops] 40 mg PO PCHS #30 ml 06/08/18 [Rx] Follow up Appointment(s)/Referral(s): [facility] [NON-STAFF] - 06/11/18 10:00 am Patient Instructions/Handouts: *Surgery [facility] - Scopalamine Patch Instructions Activity/Diet/Wound Care/Special Instructions: Bariatric diet including liquid diet only. No straws or carbonated beverages. NO lifting over 4 pounds in 4 weeks. DRINK 75 G PROTEIN DAILY FOR OPTIMAL RECOVERY. Open, cut or crush medications larger than a tic-tac. May shower. No bathtub soak for 1 week. Discharge Disposition: HOME SELF-CARE
[2018-06-09] MEDS ORDERED: BISACODYL 5 MG TABLET.DR PO PRN (08:00)
== END 2018-06-08 15:35 | disposition home or self-care (01) ==
LOC: OR 09:17 → 6PED 13:49 → 4SSUR 14:44 → OR 23:56
PROVIDERS: ADMIT Surgery Plastic and Reconstructive Surgery; ATTEND Surgery Plastic and Reconstructive Surgery
DX: K21.9 Gastro-esophageal reflux disease without esophagitis (principal); K44.0 Diaphragmatic hernia with obstruction, without gangrene; K66.0 Peritoneal adhesions (postprocedural) (postinfection); E66.01 Morbid (severe) obesity due to excess calories; Z68.35 Body mass index [BMI] 35.0-35.9, adult; G47.33 Obstructive sleep apnea (adult) (pediatric); M79.7 Fibromyalgia; E03.9 Hypothyroidism, unspecified; F32.9 Major depressive disorder, single episode, unspecified; M17.0 Bilateral primary osteoarthritis of knee; I11.9 Hypertensive heart disease without heart failure; E78.5 Hyperlipidemia, unspecified; Z99.89 Dependence on other enabling machines and devices; Z98.84 Bariatric surgery status; Z82.49 Family history of ischemic heart disease and other diseases of the circulatory system; Z79.890 Hormone replacement therapy; Z79.899 Other long term (current) drug therapy; Z88.5 Allergy status to narcotic agent; Z88.8 Allergy status to other drugs, medicaments and biological substances; Z90.49 Acquired absence of other specified parts of digestive tract
CPT/HCPCS: 43282; 49329; S2900; 74240; 80051; 82310; 82565; 83735; 84100; 84520; 85025; 88302; 94640; 94660; 94760; 94762

== ENCOUNTER → 2018-06-11 | Outpatient (CLI) | payer OTHER ==
[2018-06-11 10:11] VITALS: BP 112/77; PULSE 85; RESP 16; TEMP 98.1; BMI 35.2
--- NOTE | 2018-06-11 11:49 | P.PN ---
Subjective Progress Note Date: 06/11/18 She reports complete resolution of her gastroesophageal reflux disease. Sterile reports soreness. Intraoperative findings of peritoneal adhesions described. No significant abdominal pain. Patient advised to continue a bariatric postop diet. She is lost 13 pounds in less than 3 weeks. Follow-up in 2 weeks. No lifting over 4 pounds 4 weeks. No signs of cellulitis or infection on exam. Objective - Vital Signs Vital signs: Vital Signs Temp 98.1 F 06/11/18 10:08 Pulse 85 06/11/18 10:08 Resp 16 06/11/18 10:08 BP 112/77 06/11/18 10:08 Pulse Ox Intake & Output 06/10/18 06/11/18 06/11/18 18:59 06:59 18:59 Weight 92.986 kg
== END ==
LOC: BARWHC3 09:49
PROVIDERS: ATTEND Surgery Plastic and Reconstructive Surgery
DX: Z48.815 Encounter for surgical aftercare following surgery on the digestive system (principal); K66.0 Peritoneal adhesions (postprocedural) (postinfection)
CPT/HCPCS: 99211

== ENCOUNTER → 2018-06-23 | Outpatient (CLI) | payer OTHER ==
--- NOTE | 2018-06-23 17:49 | P.PN ---
Subjective Progress Note Date: 06/23/18 HPI: She has severe constipation. Vomiting with cottage cheese. ABDOMEN: No infection ASSESSMENT: 1. GERD PLAN: 1. MOM for constipation 2. One more week of pureed.
[2018-06-24 10:17] VITALS: BP 139/92; PULSE 77; TEMP 97.9; BMI 35.1
== END ==
LOC: BARWHC3 15:15
PROVIDERS: ATTEND Surgery Plastic and Reconstructive Surgery
DX: K21.9 Gastro-esophageal reflux disease without esophagitis (principal); K59.00 Constipation, unspecified; R11.10 Vomiting, unspecified
CPT/HCPCS: 99211

== ENCOUNTER 2019-01-12 07:59 | Day surgery (SDC) | payer OTHER ==
[2019-01-07 16:04] VITALS: BMI 38.9
--- NOTE | 2019-01-12 07:37 | P.GSHP ---
History of Present Illness H&P Date: 01/12/19 CHIEF COMPLAINT: Colon screen HISTORY OF PRESENT ILLNESS: The patient is a 53-year-old female who presents for colon screen. Lower endoscopy was offered for further evaluation and management. PAST MEDICAL HISTORY: Please see list. PAST SURGICAL HISTORY: Please see list. MEDICATIONS: Please see list. ALLERGIES: Please see list. SOCIAL HISTORY: No illicit drug use FAMILY HISTORY: No reports of Crohn disease or ulcerative colitis. REVIEW OF ORGAN SYSTEMS: CONSTITUTIONAL: No reports of fevers or chills. PHYSICAL EXAM: VITAL SIGNS: Stable GENERAL: Well-developed pleasant in no acute distress. HEENT: No scleral icterus. Extraocular movements grossly intact. Moist buccal mucosa. NECK: Supple without lymphadenopathy. CHEST: Unlabored respirations. Equal bilateral excursions. CARDIOVASCULAR: Regular rate and rhythm. Distal 2+ pulses. ABDOMEN: Soft, nontender, nondistended. MUSCULOSKELETAL: No clubbing, cyanosis, or edema. ASSESSMENT: 1. Colon screen. PLAN: 1. Recommend proceeding with a lower endoscopy Past Medical History Past Medical History: Fibromyalgia, GERD/Reflux, Hyperlipidemia, Hypertension, Osteoarthritis (OA), Sleep Apnea/CPAP/BIPAP, Thyroid Disorder Additional Past Medical History / Comment(s): HIATAL HERNIA, PREV HX OF HTN-HAS HAD WT LOSS SO NO LONGER ON MEDICATION, History of Any Multi-Drug Resistant Organisms: None Reported Past Surgical History: Appendectomy, Bariatric Surgery, Breast Surgery, Section, Cholecystectomy, Heart Catheterization, Hysterectomy, Joint Replacement, Orthopedic Surgery Additional Past Surgical History / Comment(s): BILAT TKA, lewis knee MANIPULATION, REVISION OF TOTAL RT KNEE, D&C. LEFT BREAST BIOSPIES x 2, Sleeve gastrectomy, bunionectomy left foot Past Anesthesia/Blood Transfusion Reactions: Previous Problems w/ Anesthesia, Motion Sickness, Postoperative Nausea & Vomiting (PONV) Additional Past Anesthesia/Blood Transfusion Reaction / Comment(s): STATES SHE STOPPED BREATHING DURING SURGERY FOR TOTAL KNEE REPLACEMENT(@[facility] 04/2014) DUE TO SLEEP APNEA-anesthesia records on chart. Smoking Status: Never smoker - Past Family History Mother Family Medical History: No Reported History Additional Family Medical History / Comment(s): . Medications and Allergies Home Medications Medication Instructions Recorded Confirmed Type ALPRAZolam 1 mg PO BID 03/08/14 01/07/19 History Levothyroxine Sodium [Synthroid] 25 mcg PO QAM 09/22/14 01/07/19 History DULoxetine HCL [Cymbalta] 60 mg PO BID 06/12/15 01/07/19 History Meloxicam 15 mg PO DAILY 02/08/18 01/07/19 History lamoTRIgine [LaMICtal] 150 mg PO QAM 02/08/18 01/07/19 History lamoTRIgine [LaMICtal] 2,000 mg PO 2100 06/02/18 01/07/19 History Vit C/E/Zn/Coppr/Lutein/Zeaxan 1 each PO BID 01/07/19 01/07/19 History [Preservision Areds 2 Softgel] traZODone HCL 50 - 100 mg PO HS 01/07/19 01/07/19 History Allergies Allergy/AdvReac Type Severity Reaction Status Date / Time morphine AdvReac Itching Verified 01/07/19 15:58 [id number]-[id number] Reductase AdvReac muscle Verified 01/07/19 15:58 Inhibitor aches
[~2019-01-12 07:59] MED LIST changes: -CHLORHEXIDINE GLUCONATE 15 ML CUP MUCOUS MEM ONE; -DEXAMETHASONE SOD PHOSPHATE 10 MG/ML 1 ML VIAL IV ONE; -ENOXAPARIN 40 MG/0.4 ML SYRINGE SQ STA; +LACTATED RINGERS 1,000 ML IV SCH; -MIDAZOLAM (PF) 2 MG/2 ML VIAL IV PRN; -PANTOPRAZOLE 40 MG/10 ML VIAL IV STA; -SCOPOLAMINE 1.5MG/72HR PATCH TRANSDERM STA; -fentaNYL (PF) 50 MCG/ML 2 ML AMP IV PRN
[2019-01-12 08:26] VITALS: TEMP 98.1
[2019-01-12] MEDS ORDERED: PROPOFOL 10 MG/ML 20 ML VIAL IV ONE (08:48)
[2019-01-12 09:21] VITALS: RESP 16
--- NOTE | 2019-01-12 09:32 | P.PCN ---
Date of Procedure: 01/12/19 Description of Procedure: PREOPERATIVE DIAGNOSIS: Colonoscopy screening. POSTOPERATIVE DIAGNOSIS: Severe sigmoid diverticulosis OPERATION: Colonoscopy to the sigmoid colon. SURGEON: Mady Fierro MD. ANESTHESIA: MAC. INDICATIONS: The patient is a 53-year-old female who presents for colonoscopy screening. Her last colonoscopy was more than 10 years ago. Benefits and risks were described and informed consent was obtained. DESCRIPTION OF PROCEDURE: The patient had undergone Suprep. She had been brought into the operating room and laid in the left lateral decubitus position. After adequate intravenous sedation, the rectum was examined with 2% lidocaine jelly. External hemorrhoids were encountered. The rectal tone was loose. No lesions were palpated in the rectal vault. An Olympus colonoscope was advanced along the rectum to a very tortuous sigmoid colon. The scope was then exchanged for a pediatric colonoscope. Despite multiple maneuvers, the sigmoid colon had severe tortuosity preventing further advancement of scope. The scope was passed to 30 cm from the anal verge. No evidence of polyps were identified. As the patient posed high risk for perforation with persistence of the procedure, the procedure was discontinued. The colon was desufflated. The patient had tolerated the procedure well. Withdrawal time was over 6 minutes. FINDINGS: Aronchik preparation quality scale 1 (1-5) Tortuous sigmoid colon with stricture preventing further advancement of the scope. External prolapsed hemorrhoids. Scope advanced to sigmoid colon at 30 cm. No arteriovenous malformations. No adenomatous polyps. No focal colitis. RECOMMENDATIONS: Completion of colonoscopy evaluation with barium enema. Plan - Discharge Summary Discharge Rx Participant: Yes New Discharge Prescriptions: No Action ALPRAZolam 1 mg PO BID Levothyroxine Sodium [Synthroid] 25 mcg PO QAM DULoxetine HCL [Cymbalta] 60 mg PO BID lamoTRIgine [LaMICtal] 150 mg PO QAM Meloxicam 15 mg PO DAILY lamoTRIgine [LaMICtal] 2,000 mg PO 2100 traZODone HCL 50 - 100 mg PO HS Vit C/E/Zn/Coppr/Lutein/Zeaxan [Preservision Areds 2 Softgel] 1 each PO BID Discharge Medication List ALPRAZolam 1 mg PO BID 03/08/14 [History] Levothyroxine Sodium [Synthroid] 25 mcg PO QAM 09/22/14 [History] DULoxetine HCL [Cymbalta] 60 mg PO BID 06/12/15 [History] Meloxicam 15 mg PO DAILY 02/08/18 [History] lamoTRIgine [LaMICtal] 150 mg PO QAM 02/08/18 [History] lamoTRIgine [LaMICtal] 2,000 mg PO 2100 06/02/18 [History] Vit C/E/Zn/Coppr/Lutein/Zeaxan [Preservision Areds 2 Softgel] 1 each PO BID 01/07/19 [History] traZODone HCL 50 - 100 mg PO HS 01/07/19 [History] Follow up [facility]ment(s[facility] [facility] [place] Patient Instructions/Handouts: Diverticulosis Diet (GEN), Diverticulosis (DC) Activity/Diet/Wound Care/Special Instructions: Need barium enema for completion Discharge Disposition: HOME SELF-CARE
[2019-01-12 10:22] VITALS: BP 121/69; PULSE 66
[2019-01-12] MEDS ORDERED: LACTATED RINGERS 1,000 ML IV ONE (11:07)
--- NOTE | 2019-01-12 15:14 | FL ---
EXAMINATION TYPE: FL barium enema DATE OF EXAM: 01/12/2019 COMPARISON: CT 05/13/2017 HISTORY: Sigmoid volvulus, diverticulosis, failed colonoscopy and follow-up to benign polyps TECHNIQUE: A double contrast barium enema study is performed. FINDINGS: Air Quality Chemist view of the abdomen shows overall non-obstructive bowel gas pattern. No evidence of any mass or polyp, obstructing or constricting lesion throughout the colon. No signif icant diverticular disease is noted. The colon is redundant possibly limiting sensitivity. Scattered diverticular changes are present in the sigmoid colon. Cecum is not well coated with barium. Surgical clips noted in the right upper quadrant. 29 images were obtained. 7 minutes 4 seconds fluoro scopy time. IMPRESSION: Diverticulosis. Redundant colon could limit sensitivity for detection of small polyps, l imitations above. No annular or constricting lesion.
== END 2019-01-12 12:03 | disposition home or self-care (01) ==
LOC: ORWHC2ENDO 07:59
PROVIDERS: ATTEND Surgery Plastic and Reconstructive Surgery
DX: Z12.11 Encounter for screening for malignant neoplasm of colon (principal); K57.30 Diverticulosis of large intestine without perforation or abscess without bleeding; K56.699 Other intestinal obstruction unspecified as to partial versus complete obstruction; K64.8 Other hemorrhoids; Z86.010 Personal history of colon polyps; I10 Essential (primary) hypertension; E78.5 Hyperlipidemia, unspecified; G47.33 Obstructive sleep apnea (adult) (pediatric); E07.9 Disorder of thyroid, unspecified; K21.9 Gastro-esophageal reflux disease without esophagitis; M79.7 Fibromyalgia; M19.90 Unspecified osteoarthritis, unspecified site; Z79.1 Long term (current) use of non-steroidal anti-inflammatories (NSAID); Z79.890 Hormone replacement therapy; Z79.899 Other long term (current) drug therapy; Z88.5 Allergy status to narcotic agent; Z88.8 Allergy status to other drugs, medicaments and biological substances; Z99.89 Dependence on other enabling machines and devices; Z98.84 Bariatric surgery status; Z90.49 Acquired absence of other specified parts of digestive tract; Z90.710 Acquired absence of both cervix and uterus; Z96.653 Presence of artificial knee joint, bilateral; Z98.890 Other specified postprocedural states
CPT/HCPCS: 74270; G0104; J2704; 45378

== ENCOUNTER → 2019-01-17 | Outpatient (CLI) | payer OTHER ==
--- NOTE | 2019-01-18 14:56 | MM ---
Reason for exam: screening (asymptomatic). Last mammogram was performed 1 year ago. History: Patient is postmenopausal. Family history of breast cancer in paternal aunt at age 70. Took estrogen for 1 year. Took progesterone for 1 year. Physical Findings: A clinical breast exam by your physician is recommended on an annual basis and results should be correlated with mammographic findings. MG 3D Screening Mammo W/Cad Bilateral CC and MLO view(s) were taken. Prior study comparison: January 14, 2018, bilateral MG 3d screening mammo w/cad. December 25, 2016, bilateral MG 3d diag mammo w/cad BUSTER. The breast tissue is heterogeneously dense. This may lower the sensitivity of mammography. No significant changes when compared with prior studies. ASSESSMENT: Benign, BI-RAD 2 RECOMMENDATION: Routine screening mammogram of both breasts in 1 year.
== END | disposition home or self-care (01) ==
LOC: RADMAMWWP 10:05
PROVIDERS: ATTEND Family Medicine
DX: Z12.31 Encounter for screening mammogram for malignant neoplasm of breast (principal)
CPT/HCPCS: 77063; 77067

== ENCOUNTER → 2019-01-19 | Outpatient (CLI) | payer OTHER ==
--- NOTE | 2019-01-19 14:04 | P.PN ---
Subjective Progress Note Date: 01/19/19 She comes in with still trouble with GERD that has come back with burping. Medically supervised weight loss.
[2019-01-19 14:21] VITALS: BP 154/97; PULSE 71; TEMP 98.4; BMI 37.1
== END ==
LOC: BARWHC3 12:49
PROVIDERS: ATTEND Surgery Plastic and Reconstructive Surgery
DX: K21.9 Gastro-esophageal reflux disease without esophagitis (principal)
CPT/HCPCS: 99211

== ENCOUNTER → 2019-05-25 | Outpatient (CLI) | payer OTHER ==
--- NOTE | 2019-05-25 14:28 | P.PN ---
Subjective Progress Note Date: 05/25/19 DATE OF SERVICE: 05/25/2019 CHIEF COMPLAINT: Complications from sleeve gastrectomy HISTORY OF PRESENT ILLNESS: Helen Ross is a 53-year-old female who comes in with complications from her sleeve gastrectomy. She is status post sleeve gastrectomy, 11/29/2015. She is 3 years out. She has severe gastroesophageal reflux disease. She had a hiatal hernia repair without improvements of her symptoms. She takes antacid medications without improvement of her symptoms. She is looking into conversion to a gastric bypass to address her complications from here sleeve gastrectomy. At height of 5 feet 4 inches, her ideal body weight is 144 pounds. Her highest weight was 279 pounds. Her BMI was 48.0. She comes in 217 pounds from 220 pounds, 4 months ago. She has lost 3 pounds in 4 months. Lifetime weight loss is 62 pounds. Her lifetime percent excess weight loss is 46 %. Her body mass index is down from 48.0 to 37.2. She is 73 pounds overweight. PAST MEDICAL HISTORY: 1. Morbid obesity due to excess calories 2. Body mass index of 48.0, initial 3. Osteoarthritis of the knees. 4. Hypertensive heart disease. 5. Depressive disorder 6. Obstructive sleep apnea 7. Fibromyalgia 8. Hypothyroidism 9. Gastroesophageal reflux disease. 10. Chronic constipation 11. Diverticulosis PAST SURGICAL HISTORY: 1. Bilateral knee arthroplasty 2. Sleeve gastrectomy 3. Lap band surgery 4. Cholecystectomy 5. Heart catheterization 6. Appendectomy 7. section 8. Hysterectomy 9. D&C 10. Left breast biopsy 11. Hiatal hernia repair 12. Colonoscopy HOME MEDICATIONS: ALLERGIES: Home Medications Medication Instructions Recorded Confirmed Type ALPRAZolam 1 mg PO BID PRN 03/08/14 03/11/18 History traZODone HCL [Desyrel] 100 - 200 mg PO HS 03/08/14 03/11/18 History Levothyroxine Sodium [Synthroid] 25 mcg PO QAM 09/22/14 03/11/18 History DULoxetine HCL [Cymbalta] 60 mg PO BID 06/12/15 03/11/18 History Cholecalciferol [Vitamin D3] 5,000 unit PO DAILY 06/26/15 03/11/18 History Nitroglycerin Sl Tabs [Nitrostat] 0.4 mg SUBLINGUAL Q5M PRN #25 tab 08/01/16 03/11/18 Rx Biotin 10,000 mcg PO DAILY 02/08/18 03/11/18 History Meloxicam 15 mg PO DAILY 02/08/18 03/11/18 History Vitamin B Complex 1 each PO DAILY 02/08/18 03/11/18 History lamoTRIgine [LaMICtal] 100 mg PO BID 02/08/18 03/11/18 History Allergies Allergy/AdvReac Type Severity Reaction Status Date / Time morphine AdvReac Itching Verified 03/11/18 10:24 Eigqjnu-Itm-Kbn Reductase AdvReac muscle Verified 03/11/18 10:24 Inhibitor aches SOCIAL HISTORY: No tobacco use. FAMILY HISTORY: No family history of ulcerative colitis disease or Crohn's disease. Family history of morbid obesity. No lupus in the family. No reports of stomach or esophageal cancer. REVIEW OF ORGAN SYSTEMS: CONSTITUTIONAL: At height of 5 feet 4 inches, her ideal body weight is 144 pounds. Her highest weight was 279 pounds. Her BMI was 48.0. HEENT: Denies any active troubles with vision or hearing. Has some troubles with swallowing. ENDOCRINE: No diabetes. Has hypothyroidism. CARDIOVASCULAR: No reports of palpitations or heart attacks or chest pain. RESPIRATORY: Has daytime somnolence. Has asthma. GI: Denies any bright red blood per rectum. No diarrhea. Has constipation. Has gastroesophageal reflux disease MUSCULOSKELETAL: Has lower back pain and joint pain. Has osteoarthritis of the knees. NEURO: No headaches. Has seizure disorders. PSYCH: Has depression. No suicidal ideation. RHEUMATOLOGIC: No lupus. No rheumatoid arthritis. HEMATOLOGIC: Denies any abnormal bleeding or bruising. No personal history of DVTs. SKIN: No rash. No skin cancer. PHYSICAL EXAM: VITAL SIGNS: Height 5 foot 4 inches, weight 217 pounds. BMI 37.2 Vital Signs Temp 97.9 F 05/25/19 14:46 Pulse 66 05/25/19 14:46 Resp BP 117/69 05/25/19 14:46 Pulse Ox GENERAL: Well-developed in no acute distress. HEENT: No scleral icterus. Extraocular movements grossly intact. Hears conversational speech. No nasal drainage. NECK: Supple without lymphadenopathy. CHEST: Nonlabored respirations with equal bilateral excursions. CARDIOVASCULAR: Regular rate and regular rhythm. Distal 2+ pulses. ABDOMEN: Obese, soft, nondistended. No infection MUSCULOSKELETAL: No clubbing, cyanosis. NEURO: No focal or lateralizing signs. Cranial nerves 2 through 12 grossly within normal limits. PSYCH: Appropriate affect. Alert and oriented to person, place and time. SKIN: Good skin turgor. Well perfused. ASSESSMENT: 1. Morbid obesity due to excess calories 2. Body mass index 47.3 to 37.2 3. Osteoarthritis of the knees. 4. Hypertensive heart disease. 5. Depressive disorder 6. Obstructive sleep apnea 7. Fibromyalgia 8. Hypothyroidism 9. Hiatal hernia 10. Gastroesophageal reflux disease 11. Diverticulosis 12. Complications of sleeve gastrectomy PLAN: 1. She has complications from her sleeve gastrectomy. Conversion to Tessa-en-Y gastric bypass were reviewed in detail to correct her complication. Robotic assisted approach described. 2. The [place] [facility] Data was also reviewed with benefits and risks as described. 3. An 8 page second-generation bariatric consent form was reviewed in detail including potential of bleeding, infection, leaks, adequate weight loss, nutritional deficiencies which the patient demonstrated understanding of the risks. She is elevated risks for complications with pre-existing bariatric procedure. 4. A 2 week high-protein low caloric 800 kcal diet described to address hepatomegaly. 5. Preoperative labs including complete metabolic panel and CBC with type and screen recommended. 6. DVT prophylaxis per [place] [facility]. 7. Antibiotic prophylaxis. 8. Inpatient hospitalization anticipated for more than 2 nights. 9. All questions and concerns were addressed with the patient.
[2019-05-25 14:52] VITALS: BP 117/69; PULSE 66; TEMP 97.9; BMI 36.6
== END | disposition home or self-care (01) ==
LOC: BARWHC3 13:26
PROVIDERS: ATTEND Surgery Plastic and Reconstructive Surgery
DX: E66.01 Morbid (severe) obesity due to excess calories (principal); M17.0 Bilateral primary osteoarthritis of knee; I11.9 Hypertensive heart disease without heart failure; G47.33 Obstructive sleep apnea (adult) (pediatric); M79.7 Fibromyalgia; E03.9 Hypothyroidism, unspecified; K21.9 Gastro-esophageal reflux disease without esophagitis; K57.90 Diverticulosis of intestine, part unspecified, without perforation or abscess without bleeding; K59.09 Other constipation; Z68.37 Body mass index [BMI] 37.0-37.9, adult; K95.89 Other complications of other bariatric procedure; K44.9 Diaphragmatic hernia without obstruction or gangrene; Z90.49 Acquired absence of other specified parts of digestive tract; Z83.49 Family history of other endocrine, nutritional and metabolic diseases; Z79.899 Other long term (current) drug therapy; Z79.890 Hormone replacement therapy; Z79.1 Long term (current) use of non-steroidal anti-inflammatories (NSAID); Z88.5 Allergy status to narcotic agent; Z88.8 Allergy status to other drugs, medicaments and biological substances
CPT/HCPCS: 99211

== ENCOUNTER → 2019-05-25 | Outpatient (CLI) | payer OTHER ==
[2019-05-25 15:52] LABS: Albumin 5.1 g/dL (3.5-5.0); Calcium 10.1 mg/dL (8.4-10.2); Potassium 4.5 mmol/L (3.5-5.1); Total Bilirubin 0.6 mg/dL (0.2-1.3); Total Protein 8.2 g/dL (6.3-8.2)
[2019-05-25 16:47] LABS: Basophils % (A) 1 %; Eosinophils # (A) 0.1 k/uL (0-0.7); Eosinophils % (A) 2 %; HCT 40.3 % (34.0-46.0); HGB 13.9 gm/dL (11.4-16.0); Lymphocytes # (A) 1.6 k/uL (1.0-4.8); Lymphocytes % (A) 25 %; MCH 29.7 pg (25.0-35.0); MCHC 34.4 g/dL (31.0-37.0); MCV 86.3 fL (80.0-100.0); Mean Platelet Volume 8.1; Monocytes # (A) 0.2 k/uL (0-1.0); Monocytes % (A) 3 %; Neutrophils # (A) 4.5 k/uL (1.3-7.7); Neutrophils % (A) 69 %; Platelet Count 221 k/uL (150-450); RBC 4.67 m/uL (3.80-5.40); RDW 13.4 % (11.5-15.5); WBC 6.6 k/uL (3.8-10.6)
== END ==
LOC: LABPAT 14:46
PROVIDERS: ATTEND Surgery Plastic and Reconstructive Surgery
DX: Z01.812 Encounter for preprocedural laboratory examination (principal)
CPT/HCPCS: 36415; 80053; 85025

== ENCOUNTER 2019-05-30 09:45 | Inpatient (IN) | payer OTHER ==
--- NOTE | 2019-05-29 20:14 | P.GSHP ---
History of Present Illness H&P Date: 05/30/19 DATE OF SERVICE: 05/30/2019 CHIEF COMPLAINT: Complications from sleeve gastrectomy HISTORY OF PRESENT ILLNESS: Helen Ross is a 53-year-old female with history of complications from her sleeve gastrectomy. She has uncontrolled gastroesophageal reflux disease. Upper endoscopy confirms recurrent hiatal hernia. Mechanical complication from her sleeve includes dilation and sleeve with torsion. At height of 5 feet 4 inches, her ideal body weight is 144 pounds. Her highest weight was 279 pounds. Her BMI was 48.0. She comes in 220 pounds. Lifetime weight loss is 59 pounds. Her percent excess weight loss is 44 %. Her body mass index is down from 48.0 to 37.8. She is 76 pounds overweight. PAST MEDICAL HISTORY: 1. Morbid obesity due to excess calories 2. Body mass index of 48.0, initial 3. Osteoarthritis of the knees. 4. Hypertensive heart disease. 5. Depressive disorder 6. Obstructive sleep apnea 7. Fibromyalgia 8. Hypothyroidism 9. Gastroesophageal reflux disease. 10. Chronic constipation 11. Diverticulosis PAST SURGICAL HISTORY: 1. Bilateral knee arthroplasty 2. Sleeve gastrectomy 3. Lap band surgery 4. Cholecystectomy 5. Heart catheterization 6. Appendectomy 7. section 8. Hysterectomy 9. D&C 10. Left breast biopsy 11. Hiatal hernia repair 12. Colonoscopy HOME MEDICATIONS: ALLERGIES: Home Medications Medication Instructions Recorded Confirmed Type ALPRAZolam 1 mg PO BID PRN 03/08/14 03/11/18 History traZODone HCL [Desyrel] 100 - 200 mg PO HS 03/08/14 03/11/18 History Levothyroxine Sodium [Synthroid] 25 mcg PO QAM 09/22/14 03/11/18 History DULoxetine HCL [Cymbalta] 60 mg PO BID 06/12/15 03/11/18 History Cholecalciferol [Vitamin D3] 5,000 unit PO DAILY 06/26/15 03/11/18 History Nitroglycerin Sl Tabs [Nitrostat] 0.4 mg SUBLINGUAL Q5M PRN #25 tab 08/01/16 03/11/18 Rx Biotin 10,000 mcg PO DAILY 02/08/18 03/11/18 History Meloxicam 15 mg PO DAILY 02/08/18 03/11/18 History Vitamin B Complex 1 each PO DAILY 02/08/18 03/11/18 History lamoTRIgine [LaMICtal] 100 mg PO BID 02/08/18 03/11/18 History Allergies Allergy/AdvReac Type Severity Reaction Status Date / Time morphine AdvReac Itching Verified 03/11/18 10:24 Mirptew-Bkl-Axy Reductase AdvReac muscle Verified 03/11/18 10:24 Inhibitor aches SOCIAL HISTORY: No tobacco use. FAMILY HISTORY: No family history of ulcerative colitis disease or Crohn's disease. Family history of morbid obesity. No lupus in the family. No reports of stomach or esophageal cancer. REVIEW OF ORGAN SYSTEMS: CONSTITUTIONAL: At height of 5 feet 4 inches, her ideal body weight is 144 pounds. Her highest weight was 279 pounds. Her BMI was 48.0. HEENT: Denies any active troubles with vision or hearing. Has some troubles with swallowing. ENDOCRINE: No diabetes. Has hypothyroidism. CARDIOVASCULAR: No reports of palpitations or heart attacks or chest pain. RESPIRATORY: Has daytime somnolence. Has asthma. GI: Denies any bright red blood per rectum. No diarrhea. Has constipation. Has gastroesophageal reflux disease MUSCULOSKELETAL: Has lower back pain and joint pain. Has osteoarthritis of the knees. NEURO: No headaches. Has seizure disorders. PSYCH: Has depression. No suicidal ideation. RHEUMATOLOGIC: No lupus. No rheumatoid arthritis. HEMATOLOGIC: Denies any abnormal bleeding or bruising. No personal history of DVTs. SKIN: No rash. No skin cancer. PHYSICAL EXAM: VITAL SIGNS: Height 5 foot 4 inches, weight 219 pounds. BMI 37.6 GENERAL: Well-developed in no acute distress. HEENT: No scleral icterus. Extraocular movements grossly intact. Hears conversational speech. No nasal drainage. NECK: Supple without lymphadenopathy. CHEST: Nonlabored respirations with equal bilateral excursions. CARDIOVASCULAR: Regular rate and regular rhythm. Distal 2+ pulses. ABDOMEN: Obese, soft, nondistended. No infection MUSCULOSKELETAL: No clubbing, cyanosis. Gross strength 5/5 distal lower extremities. NEURO: No focal or lateralizing signs. Cranial nerves 2 through 12 grossly within normal limits. PSYCH: Appropriate affect. Alert and oriented to person, place and time. SKIN: Good skin turgor. Well perfused. ASSESSMENT: 1. Morbid obesity due to excess calories 2. Body mass index 47.3 to 38.7 3. Osteoarthritis of the knees. 4. Hypertensive heart disease. 5. Depressive disorder 6. Obstructive sleep apnea 7. Fibromyalgia 8. Hypothyroidism 9. Hiatal hernia 10. Gastroesophageal reflux disease 11. Diverticulosis 12. 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 Recommend revision of sleeve to gastric bypass for correction of her bariatric procedure. 2. The [place] [facility] Data was also reviewed with benefits and risks as described. 3. An 8 page second-generation bariatric consent form was reviewed in detail including potential of bleeding, infection, leaks, adequate weight loss, nutritional deficiencies which the patient demonstrated understanding of the risks. 4. A 2 week high-protein low caloric 800 kcal diet described to address hepatomegaly. 5. Preoperative labs including complete metabolic panel and CBC with type and screen recommended. 6. DVT prophylaxis per [place] [facility]. 7. Antibiotic prophylaxis. 8. Inpatient hospitalization anticipated for more than 2 nights. 9. All questions and concerns were addressed with the patient. Past Medical History Past Medical History: Fibromyalgia, GERD/Reflux, Hyperlipidemia, Hypertension, Osteoarthritis (OA), Sleep Apnea/CPAP/BIPAP, Thyroid Disorder Additional Past Medical History / Comment(s): HIATAL HERNIA, PREV HX OF HTN-HAS HAD WT LOSS SO NO LONGER ON MEDICATION, uses CPAP History of Any Multi-Drug Resistant Organisms: None Reported Past Surgical History: Appendectomy, Bariatric Surgery, Breast Surgery, Section, Cholecystectomy, Heart Catheterization, Hysterectomy, Joint Replacement Additional Past Surgical History / Comment(s): lewis knee arthroplasty. lewis knee MANIPULATION, REVISION OF TOTAL RT KNEE, D&C. LEFT BREAST BIOSPIES x 2, Sleeve gastrectomy, bunionectomy left foot Past Anesthesia/Blood Transfusion Reactions: Previous Problems w/ Anesthesia, Motion Sickness, Postoperative Nausea & Vomiting (PONV) Additional Past Anesthesia/Blood Transfusion Reaction / Comment(s): STATES SHE STOPPED BREATHING DURING SURGERY FOR TOTAL KNEE REPLACEMENT(@[facility] 04/2014) DUE TO SLEEP APNEA Smoking Status: Never smoker - Past Family History Mother Family Medical History: No Reported History Additional Family Medical History / Comment(s): . Medications and Allergies Home Medications Medication Instructions Recorded Confirmed Type ALPRAZolam 1 mg PO BID 03/08/14 05/26/19 History Levothyroxine Sodium [Synthroid] 25 mcg PO QAM 09/22/14 05/26/19 History DULoxetine HCL [Cymbalta] 60 mg PO BID 06/12/15 05/26/19 History Meloxicam 15 mg PO DAILY PRN 02/08/18 05/26/19 History lamoTRIgine [LaMICtal] 200 mg PO BID 06/02/18 05/26/19 History Vit C/E/Zn/Coppr/Lutein/Zeaxan 1 each PO BID 01/07/19 05/26/19 History [Preservision Areds 2 Softgel] traZODone HCL 50 - 100 mg PO HS 01/07/19 05/26/19 History Allergies Allergy/AdvReac Type Severity Reaction Status Date / Time morphine AdvReac Itching Verified 05/24/19 11:02 Pnuxgai-Uzp-Piz Reductase AdvReac muscle Verified 05/24/19 11:02 Inhibitor aches
[~2019-05-30 09:45] MED LIST changes: +ACETAMINOPHEN IV (For NPO) 1,000 MG in EMPTY BAG 1 BAG IVPB ONE; +CHLORHEXIDINE GLUCONATE 15 ML CUP MUCOUS MEM ONE; +ENOXAPARIN 40 MG/0.4 ML SYRINGE SQ ONE; -LACTATED RINGERS 1,000 ML IV SCH; -LIDOCAINE 1% 20 ML VIAL (10MG/ML) FOR IV START INTRADERMA PRN; +PANTOPRAZOLE 40 MG/10 ML VIAL IV ONE; +SCOPOLAMINE 1.5MG/72HR PATCH TRANSDERM SCH
[2019-05-30] MEDS ORDERED: LACTATED RINGERS 1,000 ML IV ONE ×2 (10:30→14:08)
[2019-05-30] MEDS ORDERED: LIDOCAINE 1% 20 ML VIAL (10MG/ML) FOR IV START INTRADERMA ONE (10:35)
[2019-05-30] MEDS ORDERED: DEXAMETHASONE SOD PHOSPHATE 10 MG/ML 1 ML VIAL IV ONE (10:47)
[2019-05-30] MEDS ORDERED: ONDANSETRON 4 MG/2 ML VIAL IVP ONE (10:47)
[2019-05-30] MEDS ORDERED: HYDROmorphone 0.5 MG/0.5 ML SYRINGE IVP ONE ×3 (11:30→11:39)
[2019-05-30] MEDS ORDERED: MIDAZOLAM 2 MG/2 ML VIAL ONE (11:35)
[2019-05-30] MEDS ORDERED: ePHEDrine SULFATE/0.9% NACL/PF 50 MG/5 ML SYRINGE IV ONE (11:35)
[2019-05-30] MEDS ORDERED: ROCURONIUM BROMIDE 10 MG/ML 5 ML VIAL IV ONE (11:35)
[2019-05-30] MEDS ORDERED: GLYCOPYRROLATE 0.2 MG/ML 2 ML VIAL ONE (11:35)
[2019-05-30] MEDS ORDERED: NEOSTIGMINE 1 MG/ML 10 ML VIAL ONE (11:35)
[2019-05-30] MEDS ORDERED: LIDOCAINE 1% INJ 10MG/ML (20 ML MDV) ONE (11:35)
[2019-05-30] MEDS ORDERED: PROPOFOL 10 MG/ML 20 ML VIAL IV ONE (11:35)
[2019-05-30] MEDS ORDERED: KETAMINE 10 MG/ML 20 ML VIAL ONE (11:35)
[2019-05-30] MEDS ORDERED: WATER FOR INJECTION, STERILE 10 ML VIAL IV ONE (11:35)
[2019-05-30] MEDS ORDERED: fentaNYL (PF) 50 MCG/ML 2 ML AMP ONE (11:35)
[2019-05-30] MEDS ORDERED: SUCCINYLCHOLINE CHLORIDE 100 MG/5 ML SYR IV ONE (11:35)
[2019-05-30] MEDS ORDERED: BUPIVACAIN-EPI 0.5%-1:200,000 30 ML VIAL SQ ONE (12:20)
[2019-05-30] MEDS ORDERED: diphenhydrAMINE 50 MG/ML 1 ML VIAL IVP PRN (14:32)
[2019-05-30] MEDS ORDERED: NALOXONE 0.4 MG/ML 1 ML VIAL IV PRN (14:32)
--- NOTE | 2019-05-30 14:32 | P.OP ---
Date of Procedure: 05/30/19 Description of Procedure: DESCRIPTION OF PROCEDURE(S): SURGEON: KRISS AKHTAR MD SOCIAL INSURANCE ADMINISTRATOR: 1. CORBY GREGORY PREOPERATIVE DIAGNOSES: 1. Morbid obesity due to excess calories 2. Body mass index 47.3 to 38.7 3. Osteoarthritis of the knees. 4. Hypertensive heart disease. 5. Depressive disorder 6. Obstructive sleep apnea 7. Fibromyalgia 8. Hypothyroidism 9. Hiatal hernia 10. Gastroesophageal reflux disease 11. Diverticulosis 12. Complications from sleeve gastrectomy POSTOPERATIVE DIAGNOSES: 1. Morbid obesity due to excess calories 2. Body mass index 47.3 to 38.7 3. Osteoarthritis of the knees. 4. Hypertensive heart disease. 5. Depressive disorder 6. Obstructive sleep apnea 7. Fibromyalgia 8. Hypothyroidism 9. Hiatal hernia 10. Gastroesophageal reflux disease 11. Diverticulosis 12. Complications from sleeve gastrectomy OPERATION: 1. Robotic assisted da Oni Xi laparoscopic Kim-en-Y gastric bypass, 100cm antecolic antegastric Kim limb, with 25 mm EEA. 2. Intraoperative esophagogastrojejunoscopy. ANESTHESIA: General with local ESTIMATED BLOOD LOSS: 10 mL SPECIMENS REMOVED: None. COMPLICATIONS: NONE. INDICATIONS: Helen Ross is a 53-year-old female with history of complications from her sleeve gastrectomy. She has uncontrolled gastroesophageal reflux disease. Upper endoscopy confirms recurrent hiatal hernia. Mechanical complication from her sleeve includes dilation and sleeve with torsion. At height of 5 feet 4 inches, her ideal body weight is 144 pounds. Her highest weight was 279 pounds. Her BMI was 48.0. She comes in 220 pounds. Lifetime weight loss is 59 pounds. Her percent excess weight loss is 44 %. Her body mass index is down from 48.0 to 37.8. She is 76 pounds overweight. She now presents to undergo robotic assisted gastric bypass. A second-generation bariatric consent form was described in detail including the possibility of protein malnutrition, leaks, gastrojejunal stricture, venous thrombosis, need for further surgery for which she demonstrated understanding. Benefits and risks of the procedure were described at length. Informed consent was obtained. DESCRIPTION: The patient was brought into the operating room theater. She was placed on a split leg table. Preoperatively she had received Lovenox subcutaneously for DVT prophylaxis. Additionally she had undergone Peridex oral solution as an oral decontaminant. After general induction, the abdomen was prepped and draped in standard sterile fashion. Ioban draping was placed along the abdomen. A robotic da Oni Xi system was prepped and primed. Ports were proposed at 15 cm from the xiphoid process. Proposed port sites were marked with indelible marker along the anterior axillary line bilaterally, mid clavicular line bilaterally with each port marked 10 cm from each other. The circulation assistant port was marked along the right lateral lower abdominal wall. The robotic stapler port was marked for the right midclavicular line including along the left midclavicular line. A 5 mm 0 degrees laparoscopic trocar entry was performed along the left upper quadrant. The abdomen was insufflated to 15 mmHg pressure, which she tolerated well. Diagnostic laparoscopy demonstrated no injury to bowel, viscera, or mesentery. The liver surface was unremarkable. No evidence of large prominent hiatal hernia was encountered. Separately, her previous sleeve gastrectomy was adherent to the undersurface of the left lobe of the liver. No small bowel dilation was identified or evidence of bowel obstruction. An 8 mm camera port was placed left lateral to the umbilicus at the epigastrium, 12 cm distal to the xiphoid. Next, 12-mm robot stapler port was placed along the right mid abdomen. An 12 mm port was exchanged along the left upper quadrant. An 8 mm port was placed on the left lateral abdominal wall under direct localization. Please note that the ports were placed 18 to 20 cm away from the target anatomy of the stomach. Care was taken to check that each robotic arm was safely away from collision with the bed or the patient. At the epigastrium, a medium sized Rudy liver retractor was placed under direct visualization with the Iron Sales Engineer placed under the right shoulder of the patient. The patient was repositioned in reverse Trendelenburg position at 20-degress after lowering the bed. The robot was docked over the patient. Using grasper for arm 3, a grasper for arm 1, including vessel sealer for arm 4, the robotic system was docked and primed as described. Instruments were interchanged by the circulation assistant including endoscissors, the needle armored truck driver, and stapler. I had sat at the console. Next, the transverse mesocolon was reflected into the upper abdomen preparing for the jejunojejunostomy portion of the case. The ligament of Treitz was identified and measured 60 cm antegrade and marked using 2-0 Silk. The jejunum was divided at the 60 cm point using 60-mm white loads above the suture measurement. The biliopancreatic limb was held in place. The Kim limb was measured 100 cm in an antegrade fashion to avoid tension along the proposed gastrojejunal anastomosis. At 100 cm along the anti-mesenteric border of the Kim limb, a jejunojejunostomy was proposed whereby enterotomies were created along the biliopancreatic limb including the Kim limb using a Bovie cautery. A stay suture of 2-0 Silk was placed to align and create the anastomosis. The enterotomies along the anti-mesenteric borders were created followed by unidirectional fire from the patient's right side using 60 mm blue load Smart technology robotic stapler. The jejunojejunostomy was found to be hemostatic. The enterotomy was closed after horizontal mattress stitch of 2-0 silk used to elevate the enterotomy followed by closure with the robotic stapler blue loads. The jejunal limb was temporarily tacked along the left upper quadrant. Attention was now brought to the creation of the gastrojejunostomy. Along the lesser curvature of the stomach between the second and third veins and above the angularis incisura, dissection was made along the retrogastric space to allow first firing of the robotic staple. A total of 2 green loads of 60 mm staplers were used to divide the stomach from the previous gastric sleeve. Hemostasis was excellent. The robot was temporarily undocked for completion of the gastrojejunostomy using an Orvil. The patient was then prepared for placement of a Orvil. The patient was Mallamp ati 2. A 25-mm Orvil was selected for placement by the nurse local company refrigerated truck driver. The Orvil tubing was placed anterior to the staple line of the gastric pouch and brought out through the left inferior lateral port. The Orvil was then carefully and successfully navigated with the help of the nurse local company refrigerated truck driver into the gastric pouch. The sutures were identified and divided. The tubing was from the 25 mm anvil. Using aseptic technique all instruments including port sites were exchanged. As the Orvil had been placed, the blind jejunal limb was brought proximally into the upper abdomen. The transverse mesocolon was minimally bulky and undisturbed. No torsion was found upon the Kim limb. No tension was identified as the limb was brought along the upper abdomen. The blind jejunal limb was opened using Bovie cautery. The 25-mm EEA stapler was brought through the left anterior lateral port site from the left side. Please note that the trocars from the Orvil tubing, including the port, were removed to minimize contamination from the oral stewart. The EEA stapler was brought through the open jejunal limb and its needle was deployed at the antimesenteric border where the anvil were mated for approximately 1 minute upon firing. The stapler was removed after irrigating the shaft of the instrument with warm normal saline. Donuts were found to be intact and thick on both sides. The da Oni XiI robot was then re-docked. The open jejunal limb defect was closed using 60 mm blue loads after releasing any tension from the blind jejunal limb. Care was taken to avoid any long blind limb to avoid candycane syndrome. Reinforcement sutures were placed along the gastrojejunal anastomosis at 9:00 and 3 o'clock position using 3-0 Vicryl. The Conley and jejunojejunostomy mesenteric defects were closed using 2-0 VLOC sutures. I then went to the head of the bed to perform the esophagogastrojejunoscopy and a leak test. An Olympus gastroscope was passed along the posterior oropharynx which was unremarkable for any injury to the vocal cords. The scope was passed down to the proximal portion of the pouch, whereby no active bleeding was encountered. Excellent visualization of the gastrojejunostomy anastomosis, including the Kim limb was encountered with endoscopic image obtained. The anastomosis was found to be patent. The gastrointestinal tract was desufflated. No evidence of intraoperative leak was encountered as the gastric pouch and anastomosis were submerged under normal saline solution. The robot was then undocked. I then went back to the bedside of the patient, whereby with coordinated effort of the circulation assistant, irrigation was aspirated from the upper abdominal cavity. Tisseel was placed circumferentially over the anastomosis of the gastrojejunosto my. The fascial defect of the EEA stapler was closed using Margarito Wise and 0 Vicryl. All instruments and pneumoperitoneum were evacuated from the abdominal cavity. The port correlating with the EEA stapler device was copiously irrigated normal saline solution and hydrogen peroxide. The rest of incisions were reapproximated using by 4-0 Monocryl in an interrupted subcuticular fashion. Local anesthetic was infiltrated along the skin for postop analgesia. Liquid glue was applied to the skin. OptiFoam dressing was placed along the EEA stapler site. At the end of the procedure, needle, sponge and instrument count had been verified correct by the surgical dental assistant. She had tolerated the procedure well and was extubated and taken to the postanesthesia unit in stable condition. Operative Findings: 1. Gastric pouch resected using 2 green loads. 2. Bypass performed using 100 cm kim limb secondary to avoid increased tension at 150 cm. 3. Keenan defect and jejunojejunostomy defects closed using 2-0 VLOC 4. Leak test negative with gastrojejunal anastomosis patent and hemostatic. 5. Robotic stapler, total 6 loads, 3 blue, 1 white, and 2 green loads 60 mm used. 6. Console time 73 minutes
[2019-05-30] MEDS: 0.9% NACL WITH KCL 20 MEQ/L 1,000 ML IV SCH ×2 (16:21→22:50)
[2019-05-30] MEDS: ACETAMINOPHEN IV (For NPO) 1,000 MG in EMPTY BAG 1 BAG IVPB SCH ×2 (16:42→22:49)
[2019-05-30] MEDS: HYOSCYAMINE ORAL DROPS 1.875 MG/15 ML BOTTLE PO SCH ×2 (16:44→23:15)
[2019-05-30] MEDS: SIMETHICONE 40 MG/0.6 ML DROPS 2,000 MG/30 ML BOTTLE PO SCH ×2 (16:45→23:14)
[2019-05-30] MEDS: ONDANSETRON 4 MG/2 ML VIAL IVP SCH ×2 (16:46→23:14)
[2019-05-30] MEDS: ALBUTEROL NEBULIZED 2.5 MG/3 ML INHALATION SCH ×2 (17:03→20:26)
[2019-05-30] MEDS: lamoTRIgine 100 MG TAB PO SCH (19:02)
[2019-05-30] MEDS ORDERED: SODIUM CHLORIDE 0.9% 2,000 ML IV ONE (19:03)
[2019-05-30] MEDS ORDERED: DEXAMETHASONE SOD PHOSPHATE 4 MG/ML 1 ML VIAL IV STA (19:03)
[2019-05-30] MEDS ORDERED: ALPRAZolam 1 MG TAB PO PRN (21:00)
[2019-05-31 03:59] LABS: Glucose,Whole Blood 113 mg/dL (75-99)
[2019-05-31 04:09] VITALS: PULSE 67; RESP 18
[2019-05-31] MEDS: ONDANSETRON 4 MG/2 ML VIAL IVP SCH ×2 (05:11→12:00)
[2019-05-31] MEDS: ACETAMINOPHEN IV (For NPO) 1,000 MG in EMPTY BAG 1 BAG IVPB SCH ×2 (05:12→11:59)
[2019-05-31] MEDS: 0.9% NACL WITH KCL 20 MEQ/L 1,000 ML IV SCH (05:12)
[2019-05-31] MEDS: HYOSCYAMINE ORAL DROPS 1.875 MG/15 ML BOTTLE PO SCH ×2 (05:12→12:00)
[2019-05-31] MEDS: SIMETHICONE 40 MG/0.6 ML DROPS 2,000 MG/30 ML BOTTLE PO SCH ×2 (05:13→11:59)
[2019-05-31] MEDS ORDERED: ENOXAPARIN 40 MG/0.4 ML SYRINGE SQ SCH (06:00)
[2019-05-31] MEDS ORDERED: LEVOTHYROXINE 25 MCG TAB PO SCH (06:30)
[2019-05-31 07:32] LABS: Basophils % (A) 0 %; Eosinophils % (A) 0 %; HCT 35.6 % (34.0-46.0); HGB 12.1 gm/dL (11.4-16.0); Lymphocytes # (A) 0.8 k/uL (1.0-4.8); Lymphocytes % (A) 8 %; MCH 29.4 pg (25.0-35.0); MCV 86.6 fL (80.0-100.0); Mean Platelet Volume 8.5; Monocytes # (A) 0.3 k/uL (0-1.0); Monocytes % (A) 4 %; Neutrophils # (A) 8.1 k/uL (1.3-7.7); Neutrophils % (A) 88 %; Platelet Count 207 k/uL (150-450); RBC 4.11 m/uL (3.80-5.40); RDW 13.4 % (11.5-15.5); WBC 9.3 k/uL (3.8-10.6)
[2019-05-31 07:41] LABS: African American GFR (CKD) >90 (>60 ml/min/1.73 sqM); Anion Gap 9 mmol/L; Blood Urea Nitrogen 9 mg/dL (7-17); Calcium 9.1 mg/dL (8.4-10.2); Carbon Dioxide 24 mmol/L (22-30); Chloride 108 mmol/L (98-107); Magnesium 1.8 mg/dL (1.6-2.3); Non-African American GFR(CKD) >90 (>60 ml/min/1.73 sqM); Phosphorus 3.5 mg/dL (2.5-4.5); Potassium 4.6 mmol/L (3.5-5.1); Sodium 141 mmol/L (137-145)
[2019-05-31] MEDS ORDERED: 1: MVI, ADULT NO.4 WITH VIT K 10 ML, THIAMINE 100 MG, FOLIC ACID 1 MG, POTASSIUM CHLORID IV SCH ×6 (08:00)
[2019-05-31] MEDS: lamoTRIgine 100 MG TAB PO SCH (08:24)
[2019-05-31] MEDS: ALBUTEROL NEBULIZED 2.5 MG/3 ML INHALATION SCH ×3 (08:57→16:04)
[2019-05-31] MEDS ORDERED: PANTOPRAZOLE 40 MG/10 ML VIAL IV SCH (09:00)
[2019-05-31] MEDS ORDERED: DULoxetine HCL 60 MG CAPSULE.DR PO SCH (09:00)
[2019-05-31 10:28] VITALS: BP 152/87; TEMP 98.1
--- NOTE | 2019-05-31 11:32 | P.DS ---
<Marcelle Tubbs - Last Filed: 05/31/19 11:29> Providers Expected date of discharge: 05/31/19 Hospital Course: 53-year-old female who underwent robotic-assisted laparoscopic Tessa-en-Y gastric bypass with Dr. Fierro on 05/30/2019. Patient is doing well postoperatively without any immediate complications. She is tolerating clear liquid diet. Pain is controlled on oral medications. She is stable for discharge home today. Please see EMR for further hospital course details. Discharge diagnosis 1. Morbid obesity due to excess calories 2. Body mass index 47.3 to 38.7 3. Osteoarthritis of the knees. 4. Hypertensive heart disease. 5. Depressive disorder 6. Obstructive sleep apnea 7. Fibromyalgia 8. Hypothyroidism 9. Hiatal hernia 10. Gastroesophageal reflux disease 11. Diverticulosis 12. Complications from sleeve gastrectomy Nurse practitioner note has been reviewed by physician. Signing provider agrees with the documented findings, assessment, and plan of care. Patient Condition at Discharge: Stable Plan - Discharge Summary Discharge Rx Participant: Yes New Discharge Prescriptions: New Bisacodyl [Dulcolax] 5 mg PO DAILY PRN #10 tablet.dr PRN Reason: Constipation Simethicone 40 mg/0.6 ml Drops [Mylicon Drops] 40 mg PO PCHS PRN #30 ml PRN Reason: Gas Omeprazole [PriLOSEC] 40 mg PO DAILY #30 capsule. Acetaminophen Oral Susp [Tylenol Oral Susp] 1,000 mg PO Q4-6H PRN #400 ml PRN Reason: Pain Ondansetron Odt [Zofran Odt] 4 mg PO Q8HR PRN #9 tab PRN Reason: Nausea Continue ALPRAZolam 1 mg PO BID Levothyroxine Sodium [Synthroid] 25 mcg PO QAM DULoxetine HCL [Cymbalta] 60 mg PO BID lamoTRIgine [LaMICtal] 200 mg PO BID traZODone HCL 50 - 100 mg PO HS Discontinued Meloxicam 15 mg PO DAILY PRN PRN Reason: Pain Vit C/E/Zn/Coppr/Lutein/Zeaxan [Preservision Areds 2 Softgel] 1 each PO BID Discharge Medication List ALPRAZolam 1 mg PO BID 03/08/14 [History] Levothyroxine Sodium [Synthroid] 25 mcg PO QAM 06/19/15 [History] DULoxetine HCL [Cymbalta] 60 mg PO BID 06/12/15 [History] lamoTRIgine [LaMICtal] 200 mg PO BID 06/02/18 [History] traZODone HCL 50 - 100 mg PO HS 01/07/19 [History] Acetaminophen Oral Susp [Tylenol Oral Susp] 1,000 mg PO Q4-6H PRN #400 ml 05/30/19 [Rx] Bisacodyl [Dulcolax] 5 mg PO DAILY PRN #10 tablet. 05/30/19 [Rx] Omeprazole [PriLOSEC] 40 mg PO DAILY #30 capsule. 05/30/19 [Rx] Ondansetron Odt [Zofran Odt] 4 mg PO Q8HR PRN #9 tab 05/30/19 [Rx] Simethicone 40 mg/0.6 ml Drops [Mylicon Drops] 40 mg PO PCHS PRN #30 ml 05/30/19 [Rx] Follow up Appointment(s)/Referral(s): Roly Dinero MD [Primary Care Provider] - 06/06/19 10:30 am [place], [place] [NON-STAFF] - 06/03/19 10:00 am Patient Instructions/Handouts: Abdominal Binder (DC), Nutrition after Bariatric Surgery (DC), Tessa-en-Y Gastric Bypass (DC) Activity/Diet/Wound Care/Special Instructions: No lifting over 4 pounds in 4 weeks, June 27. Follow-up at the bariatric center. May shower. Dressings to be discontinued by surgeon in the office. Drink 64 oz of fluid daily. Start protein shakes on . Notify bariatric center for temp over 101.0, increased pain, drainage from incisions. No straws or carbonated beverages. Liquid diet only. Sugar content should be less than 6 g to avoid dumping syndrome. Take MOM for constipation. CRUSH, OPEN, OR CUT TABLETS LARGER THAN A SIZE OF A TIC TAC Discharge Disposition: HOME SELF-CARE <Mady Fierro - Last Filed: 05/31/19 18:29> Providers Date of admission: 05/30/19 09:45 Attending physician: Mady Fierro Primary care physician: Roly Dinero
[2019-05-31 11:34] VITALS: BMI 37.4
[2019-06-01] MEDS ORDERED: BISACODYL 5 MG TABLET.DR PO PRN (08:00)
== END 2019-05-31 18:27 | disposition home or self-care (01) | DRG 328 ==
LOC: 2ORMAIN 09:45 → EDSTATUS 13:30 → 4SSUR 14:25
PROVIDERS: ADMIT Surgery Plastic and Reconstructive Surgery; ATTEND Surgery Plastic and Reconstructive Surgery
PROC: 0D164ZA Bypass Stomach to Jejunum, Percutaneous Endoscopic Approach (ICD-10-PCS; principal; 2019-05-30 11:15)
PROC: 5A09357 Assistance with Respiratory Ventilation, Less than 24 Consecutive Hours, Continuous Positive Airway Pressure (ICD-10-PCS; principal; 2019-05-30 11:15)
PROC: 0DJ08ZZ Inspection of Upper Intestinal Tract, Via Natural or Artificial Opening Endoscopic (ICD-10-PCS; principal; 2019-05-30 11:15)
PROC: 8E0W4CZ Robotic Assisted Procedure of Trunk Region, Percutaneous Endoscopic Approach (ICD-10-PCS; principal; 2019-05-30 11:15)
DX: K95.89 Other complications of other bariatric procedure (principal); R16.0 Hepatomegaly, not elsewhere classified; I11.9 Hypertensive heart disease without heart failure; E03.9 Hypothyroidism, unspecified; K21.9 Gastro-esophageal reflux disease without esophagitis; E66.01 Morbid (severe) obesity due to excess calories; Z68.37 Body mass index [BMI] 37.0-37.9, adult; F32.9 Major depressive disorder, single episode, unspecified; G47.33 Obstructive sleep apnea (adult) (pediatric); M79.7 Fibromyalgia; K44.9 Diaphragmatic hernia without obstruction or gangrene; K57.90 Diverticulosis of intestine, part unspecified, without perforation or abscess without bleeding; E78.5 Hyperlipidemia, unspecified; K59.09 Other constipation; M17.0 Bilateral primary osteoarthritis of knee; Z79.890 Hormone replacement therapy; Z79.1 Long term (current) use of non-steroidal anti-inflammatories (NSAID); Z79.899 Other long term (current) drug therapy; Z71.3 Dietary counseling and surveillance; Z96.653 Presence of artificial knee joint, bilateral; Z90.49 Acquired absence of other specified parts of digestive tract; Z98.891 History of uterine scar from previous surgery; Z90.710 Acquired absence of both cervix and uterus; Z99.89 Dependence on other enabling machines and devices; Z98.890 Other specified postprocedural states; Z88.5 Allergy status to narcotic agent; Z88.8 Allergy status to other drugs, medicaments and biological substances; Y83.8 Other surgical procedures as the cause of abnormal reaction of the patient, or of later complication, without mention of misadventure at the time of the procedure; Y92.009 Unspecified place in unspecified non-institutional (private) residence as the place of occurrence of the external cause; Z83.49 Family history of other endocrine, nutritional and metabolic diseases
CPT/HCPCS: 80051; 82310; 82565; 83735; 84100; 84520; 85025; 86850; 86900; 86901

== ENCOUNTER → 2019-06-03 | Outpatient (CLI) | payer OTHER ==
[2019-06-03 10:14] VITALS: BP 124/80; PULSE 92; RESP 16; TEMP 97.8; BMI 36.2
--- NOTE | 2019-06-03 15:39 | P.PN ---
Subjective Progress Note Date: 06/03/19 DATE OF SERVICE: 06/03/2019 CHIEF COMPLAINT: Status post gastric bypass HISTORY OF PRESENT ILLNESS: Helen Ross is a 53-year-old female status sleeve to gastric bypass, 05/30/19. She is POD 4. She denies reflux. Her pain is tolerable. She si tolerating liquids. She is passing flatus. She is taking omeprazole. At height of 5 feet 4 inches, her ideal body weight is 144 pounds. Her highest weight was 279 pounds. Her BMI was 48.0. She comes in 211 pounds from 217 pounds, 1 week ago. She has lost 6 pounds in 1 week. Lifetime weight loss is 68 pounds. Her lifetime percent excess weight loss is 51 %. Her body mass index is down from 48.0 to 36.2. She is 67 pounds overweight. PHYSICAL EXAM: VITAL SIGNS: Height 5 foot 4 inches, weight 211 pounds. BMI 36.2 Vital Signs Temp 97.8 F 06/03/19 10:12 Pulse 92 06/03/19 10:12 Resp 16 06/03/19 10:12 BP 124/80 06/03/19 10:12 Pulse Ox GENERAL: Well-developed in no acute distress. HEENT: No scleral icterus. Extraocular movements grossly intact. Hears conversational speech. No nasal drainage. NECK: Supple without lymphadenopathy. CHEST: Nonlabored respirations with equal bilateral excursions. CARDIOVASCULAR: Regular rate and regular rhythm. Distal 2+ pulses. ABDOMEN: Incisions are clean, dry and intact. No signs of infection. MUSCULOSKELETAL: No clubbing, cyanosis. NEURO: No focal or lateralizing signs. Cranial nerves 2 through 12 grossly within normal limits. PSYCH: Appropriate affect. Alert and oriented to person, place and time. SKIN: Good skin turgor. Well perfused. ASSESSMENT: 1. Morbid obesity due to excess calories 2. Body mass index 47.3 to 36.2 3. Osteoarthritis of the knees. 4. Hypertensive heart disease. 5. Depressive disorder 6. Obstructive sleep apnea 7. Fibromyalgia 8. Hypothyroidism 9. Hiatal hernia 10. Gastroesophageal reflux disease 11. Diverticulosis 12. Complications of sleeve gastrectomy 13. Status post gastric bypass PLAN: 1. Recommend transition to protein shake diet. 2. Follow-up in one week. 3. All questions were addressed. 4. Recommend abdominal binder that is placed. Objective - Vital Signs Vital signs: Vital Signs Temp 97.8 F 06/03/19 10:12 Pulse 92 06/03/19 10:12 Resp 16 06/03/19 10:12 BP 124/80 06/03/19 10:12 Pulse Ox Intake & Output 06/02/19 06/03/19 06/03/19 18:59 06:59 18:59 Weight 95.708 kg
== END | disposition home or self-care (01) ==
LOC: BARWHC3 09:48
PROVIDERS: ATTEND Surgery Plastic and Reconstructive Surgery
DX: E66.01 Morbid (severe) obesity due to excess calories (principal); Z68.36 Body mass index [BMI] 36.0-36.9, adult; M17.0 Bilateral primary osteoarthritis of knee; I11.9 Hypertensive heart disease without heart failure; F32.9 Major depressive disorder, single episode, unspecified; G47.33 Obstructive sleep apnea (adult) (pediatric); M79.7 Fibromyalgia; E03.9 Hypothyroidism, unspecified; K44.9 Diaphragmatic hernia without obstruction or gangrene; K21.9 Gastro-esophageal reflux disease without esophagitis; K57.90 Diverticulosis of intestine, part unspecified, without perforation or abscess without bleeding; K95.89 Other complications of other bariatric procedure; Z98.84 Bariatric surgery status
CPT/HCPCS: 99211

== ENCOUNTER → 2019-06-08 | Outpatient (CLI) | payer OTHER ==
[~2019-06-08] MED LIST changes: -ACETAMINOPHEN IV (For NPO) 1,000 MG in EMPTY BAG 1 BAG IVPB ONE; -CHLORHEXIDINE GLUCONATE 15 ML CUP MUCOUS MEM ONE; -ENOXAPARIN 40 MG/0.4 ML SYRINGE SQ ONE; -PANTOPRAZOLE 40 MG/10 ML VIAL IV ONE; -SCOPOLAMINE 1.5MG/72HR PATCH TRANSDERM SCH; +SUMAtriptan SUCCINATE 6 MG/0.5 ML VIAL SQ STA
[2019-06-08 10:41] VITALS: BP 101/69; PULSE 118; RESP 16
[2019-06-08] MEDS: SODIUM CHLORIDE 0.9% 1,000 ML IV SCH ×2 (10:47→11:46)
[2019-06-08 12:04] VITALS: BMI 35.5
[2019-06-08 12:36] VITALS: TEMP 98.2
--- NOTE | 2019-06-08 13:22 | P.PN ---
Subjective Progress Note Date: 06/08/19 DATE OF SERVICE: 06/08/2019 CHIEF COMPLAINT: Status post gastric bypass HISTORY OF PRESENT ILLNESS: Helen Ross is a 53-year-old female status sleeve to gastric bypass, 05/30/19. She is 2 weeks out. She comes in with a headache. She is over 1 week out. She has horrible constipation. Her fluid intake in inadequate. At height of 5 feet 4 inches, her ideal body weight is 144 pounds. Her highest weight was 279 pounds. Her BMI was 48.0. She comes in 207 pounds from 211 pounds, 1 week ago. She has lost 4 pounds in 1 week. Lifetime weight loss is 72 pounds. Her lifetime percent excess weight loss is 54 %. Her body mass index is down from 48.0 to 35.5. She is 63 pounds overweight. PHYSICAL EXAM: VITAL SIGNS: Height 5 foot 4 inches, weight 207 pounds. BMI 35.5 Vital Signs Temp 98.2 F 06/08/19 12:33 Pulse 118 H 06/08/19 12:33 Resp 16 06/08/19 10:40 BP 101/69 06/08/19 12:33 Pulse Ox GENERAL: Well-developed in no acute distress. HEENT: No scleral icterus. Extraocular movements grossly intact. Hears conversational speech. No nasal drainage. NECK: Supple without lymphadenopathy. CHEST: Nonlabored respirations with equal bilateral excursions. CARDIOVASCULAR: Distal 2+ pulses. Tachycardic. ABDOMEN: Incisions are clean, dry and intact. No signs of infection. MUSCULOSKELETAL: No clubbing, cyanosis. NEURO: No focal or lateralizing signs. Cranial nerves 2 through 12 grossly within normal limits. PSYCH: Appropriate affect. Alert and oriented to person, place and time. SKIN: Good skin turgor. Well perfused. ASSESSMENT: 1. Morbid obesity due to excess calories 2. Body mass index 47.3 to 35.5 3. Osteoarthritis of the knees. 4. Hypertensive heart disease. 5. Depressive disorder 6. Obstructive sleep apnea 7. Fibromyalgia 8. Hypothyroidism 9. Hiatal hernia 10. Gastroesophageal reflux disease 11. Diverticulosis 12. Complications of sleeve gastrectomy 13. Status post gastric bypass 14. Migraines 15. Constipation. 16. Dehydration PLAN: 1. Recommend IV fluids for dehydration. 2. Recommend lactulose and suppository for constipation 3. Prescriped imitrex for headaches. 4. After intravenous fluids, her heart rate improved 5. Follow-up in the office within 48 hours. Objective - Vital Signs Vital signs: Vital Signs Temp 98.2 F 06/08/19 12:33 Pulse 118 H 06/08/19 12:33 Resp 16 06/08/19 10:40 BP 101/69 06/08/19 12:33 Pulse Ox Intake & Output 06/07/19 06/08/19 06/08/19 18:59 06:59 18:59 Weight 93.894 kg
== END ==
LOC: BARWHC3 10:16
PROVIDERS: ATTEND Surgery Plastic and Reconstructive Surgery
DX: E66.01 Morbid (severe) obesity due to excess calories (principal); E86.0 Dehydration; K59.00 Constipation, unspecified; K95.89 Other complications of other bariatric procedure; Z68.35 Body mass index [BMI] 35.0-35.9, adult; R00.0 Tachycardia, unspecified; M17.0 Bilateral primary osteoarthritis of knee; I11.9 Hypertensive heart disease without heart failure; F32.9 Major depressive disorder, single episode, unspecified; G47.33 Obstructive sleep apnea (adult) (pediatric); M79.7 Fibromyalgia; E03.9 Hypothyroidism, unspecified; K44.9 Diaphragmatic hernia without obstruction or gangrene; K21.9 Gastro-esophageal reflux disease without esophagitis; K57.90 Diverticulosis of intestine, part unspecified, without perforation or abscess without bleeding; G43.909 Migraine, unspecified, not intractable, without status migrainosus
CPT/HCPCS: 97803; 96360; 96361; 96372; J3030; G0463; 99211

== ENCOUNTER 2019-10-13 08:09 | Day surgery (SDC) | payer OTHER ==
[2019-10-10 16:07] VITALS: BMI 31.2
--- NOTE | 2019-10-13 07:45 | P.GSHP ---
History of Present Illness H&P Date: 10/13/19 CHIEF COMPLAINT: GERD HISTORY OF PRESENT ILLNESS: The patient is a 54-year-old female who presents reports gastroesophageal reflux disease. Upper endoscopy was offered for further evaluation and management. PAST MEDICAL HISTORY: Please see list. PAST SURGICAL HISTORY: Please see list. MEDICATIONS: Please see list. ALLERGIES: Please see list. SOCIAL HISTORY: No illicit drug use FAMILY HISTORY: No reports of Crohn disease or ulcerative colitis. REVIEW OF ORGAN SYSTEMS: CONSTITUTIONAL: No reports of fevers or chills. GI: Denies any blood in stools or constipation. PHYSICAL EXAM: VITAL SIGNS: Stable GENERAL: Well-developed and pleasant in no acute distress. HEENT: No scleral icterus. Extraocular movements grossly intact. Moist buccal mucosa. NECK: Supple without lymphadenopathy. CHEST: Unlabored respirations. Equal bilateral excursions. CARDIOVASCULAR: Regular rate and rhythm. Distal 2+ pulses. ABDOMEN: Soft, nondistended. MUSCULOSKELETAL: No clubbing, cyanosis, or edema. ASSESSMENT: 1. Gastroesophageal reflux disease PLAN: 1. Recommend proceeding with an upper endoscopy Past Medical History Past Medical History: Fibromyalgia, GERD/Reflux, Hyperlipidemia, Hypertension, Osteoarthritis (OA), Sleep Apnea/CPAP/BIPAP, Thyroid Disorder Additional Past Medical History / Comment(s): HIATAL HERNIA, PREV HX OF HTN-HAS HAD WT LOSS SO NO LONGER ON MEDICATION, uses CPAP History of Any Multi-Drug Resistant Organisms: None Reported Past Surgical History: Appendectomy, Bariatric Surgery, Breast Surgery, Section, Cholecystectomy, Heart Catheterization, Hysterectomy, Joint Replacement Additional Past Surgical History / Comment(s): lewis knee arthroplasty. lewis knee MANIPULATION, REVISION OF TOTAL RT KNEE, D&C. LEFT BREAST BIOSPIES x 2, Sleeve gastrectomy, bunionectomy left foot Gastric Bypass 05/30/19 Past Anesthesia/Blood Transfusion Reactions: Previous Problems w/ Anesthesia, Motion Sickness, Postoperative Nausea & Vomiting (PONV) Additional Past Anesthesia/Blood Transfusion Reaction / Comment(s): STATES SHE STOPPED BREATHING DURING SURGERY FOR TOTAL KNEE REPLACEMENT(@[facility] 04/2014) DUE TO SLEEP APNEA Smoking Status: Never smoker - Past Family History Mother Family Medical History: No Reported History Additional Family Medical History / Comment(s): . Medications and Allergies Home Medications Medication Instructions Recorded Confirmed Type ALPRAZolam 1 mg PO BID 03/08/14 10/10/19 History Levothyroxine Sodium [Synthroid] 25 mcg PO QAM 09/22/14 10/10/19 History DULoxetine HCL [Cymbalta] 60 mg PO BID 06/12/15 10/10/19 History lamoTRIgine [LaMICtal] 200 mg PO BID 06/02/18 10/10/19 History traZODone HCL 100 mg PO HS 01/07/19 10/10/19 History Omeprazole [PriLOSEC] 40 mg PO DAILY #30 capsule. 05/30/19 10/10/19 Rx Nystatin 100,000 Unit/gm Powd 1 applic TOPICAL BID #60 powder 09/28/19 10/10/19 Rx [Mycostatin Powder] Allergies Allergy/AdvReac Type Severity Reaction Status Date / Time morphine AdvReac Itching Verified 10/10/19 15:59 Guuzjev-Qli-Vko Reductase AdvReac muscle Verified 10/10/19 15:59 Inhibitor aches
[~2019-10-13 08:09] MED LIST changes: +LACTATED RINGERS 1,000 ML IV SCH; -SUMAtriptan SUCCINATE 6 MG/0.5 ML VIAL SQ STA
[2019-10-13] MEDS ORDERED: fentaNYL (PF) 50 MCG/ML 2 ML AMP ONE (08:34)
[2019-10-13] MEDS ORDERED: PROPOFOL 10 MG/ML 20 ML VIAL IV ONE (08:34)
[2019-10-13] MEDS ORDERED: MIDAZOLAM 2 MG/2 ML VIAL ONE (08:34)
[2019-10-13] MEDS ORDERED: LIDOCAINE 1% INJ 10MG/ML (20 ML MDV) ONE (08:34)
--- NOTE | 2019-10-13 08:50 | P.PCN ---
Date of Procedure: 10/13/19 Description of Procedure: PREOPERATIVE DIAGNOSES: 1. Epigastric abdominal pain. 2. Nausea and vomiting. 3. History of gastric bypass. 4. Gastroesophageal reflux disease POSTOPERATIVE DIAGNOSES: 1. 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 SURGEON: Mady Fierro MD ANESTHESIA: MAC. INDICATIONS: The patient is a 54-year-old female who reports epigastric abdominal pain including history of gastroesophageal reflux disease. Upper endoscopy was offered for further evaluation and management. DESCRIPTION: Patient was brought to the endoscopy suite and laid in the left lateral decubitus position. After adequate IV sedation, a bite block was placed. An Olympus gastroscope was passed along the posterior oropharynx down to the distal esophagus where the squamocolumnar junction was found at approximately 42 cm from the incisors. $nastomosis was found at 47 cm, consistent with approximately 5 cm gastric pouch. The scope was advanced 60 cm from the incisors. Active superficial gastrojejunal ulcerations were encountered at the anastomosis including along the jejunum. The GI tract was desufflated. The patient tolerated the procedure well. FINDINGS: 1. Acute gastrojejunal ulceration with mild stricture 15 mm PLAN: 1. Recommend Carafate 1 g twice daily 2. Recommend increase omeprazole 40 mg twice daily 3. Treatment for ulcers at least 4 weeks with repeat upper endoscopy Plan - Discharge Summary Discharge Rx Participant: No New Discharge Prescriptions: New Sucralfate [Carafate] 1 gm PO BID #120 tab Omeprazole [PriLOSEC] 40 mg PO BID #28 cap Continue ALPRAZolam 1 mg PO BID Levothyroxine Sodium [Synthroid] 25 mcg PO QAM DULoxetine HCL [Cymbalta] 60 mg PO BID lamoTRIgine [LaMICtal] 200 mg PO BID traZODone HCL 100 mg PO HS Omeprazole [PriLOSEC] 40 mg PO DAILY #30 capsule. Nystatin 100,000 Unit/gm Powd [Mycostatin Powder] 1 applic TOPICAL BID #60 powder Discharge Medication List ALPRAZolam 1 mg PO BID 03/08/14 [History] Levothyroxine Sodium [Synthroid] 25 mcg PO QAM 09/22/14 [History] DULoxetine HCL [Cymbalta] 60 mg PO BID 06/12/15 [History] lamoTRIgine [LaMICtal] 200 mg PO BID 06/02/18 [History] traZODone HCL 100 mg PO HS 01/07/19 [History] Omeprazole [PriLOSEC] 40 mg PO DAILY #30 capsule. 05/30/19 [Rx] Nystatin 100,000 Unit/gm Powd [Mycostatin Powder] 1 applic TOPICAL BID #60 powder 09/28/19 [Rx] Omeprazole [PriLOSEC] 40 mg PO BID #28 cap 10/13/19 [Rx] Sucralfate [Carafate] 1 gm PO BID #120 tab 10/13/19 [Rx] [facility]ment[facility]Ref[facility] [place] [facility] - [facility] Patient Instructions/Handouts: Peptic Ulcer (DC), Sucralfate (By mouth) Activity/Diet/Wound Care/Special Instructions: Please cut or across Carafate tablet twice daily Discharge Disposition: HOME SELF-CARE
[2019-10-14 08:13] VITALS: BP 122/74; PULSE 77; RESP 18; TEMP 98.6
== END 2019-10-13 09:14 | disposition home or self-care (01) ==
LOC: ORWHC2ENDO 08:09
PROVIDERS: ATTEND Surgery Plastic and Reconstructive Surgery
DX: K95.89 Other complications of other bariatric procedure (principal); K28.3 Acute gastrojejunal ulcer without hemorrhage or perforation; K56.699 Other intestinal obstruction unspecified as to partial versus complete obstruction; K21.9 Gastro-esophageal reflux disease without esophagitis; M79.7 Fibromyalgia; E78.5 Hyperlipidemia, unspecified; M19.90 Unspecified osteoarthritis, unspecified site; G47.30 Sleep apnea, unspecified; E07.9 Disorder of thyroid, unspecified; K44.9 Diaphragmatic hernia without obstruction or gangrene; Z88.5 Allergy status to narcotic agent; Z88.8 Allergy status to other drugs, medicaments and biological substances; Z99.89 Dependence on other enabling machines and devices; Z86.79 Personal history of other diseases of the circulatory system; Z90.49 Acquired absence of other specified parts of digestive tract; Z98.890 Other specified postprocedural states; Z90.710 Acquired absence of both cervix and uterus; Z96.653 Presence of artificial knee joint, bilateral; Z87.39 Personal history of other diseases of the musculoskeletal system and connective tissue; Z91.89 Other specified personal risk factors, not elsewhere classified; Z87.898 Personal history of other specified conditions; Z79.899 Other long term (current) drug therapy; Z79.890 Hormone replacement therapy
CPT/HCPCS: 43235; J2250; J2001; J3010; J2704; 43239

== ENCOUNTER → 2019-10-26 | Outpatient (CLI) | payer OTHER ==
[2019-10-26 13:51] VITALS: BP 116/76; PULSE 73; RESP 16; TEMP 98.6; BMI 30.9
--- NOTE | 2019-10-26 14:28 | P.PN ---
Subjective Progress Note Date: 10/26/19 DATE OF SERVICE: 10/26/2019 CHIEF COMPLAINT: Status post gastric bypass HISTORY OF PRESENT ILLNESS: Helen Ross is a 54-year-old female status sleeve to gastric bypass, 05/30/19. She is 5 months out. She is still losing weight. She is on Lamictal, Trazadone. She denies gastroesophageal reflux d isease. Her protein intake is 70 grams. She is avoiding carbs. Her highest weight 285 pounds. She comes in with panniculitis. Her dysphagia is improving. At height of 5 feet 4 inches, her ideal body weight is 144 pounds. Her highest weight was 285 pounds. Her BMI was 49.0. She comes in 180 pounds from 184 pounds, 1 months ago. She has lost 4 pounds in 1 months. Lifetime weight loss is 105 pounds. Her lifetime percent excess weight loss is 75 %. Her body mass index is down from 48.0 to 30.9. She is 36 pounds overweight. PHYSICAL EXAM: VITAL SIGNS: Height 5 foot 4 inches, weight 180 pounds. BMI 30.9 Vital Signs Temp 98.6 F 10/26/19 13:49 Pulse 73 10/26/19 13:49 Resp 16 10/26/19 13:49 BP 116/76 10/26/19 13:49 Pulse Ox GENERAL: Well-developed in no acute distress. HEENT: No scleral icterus. Extraocular movements grossly intact. Hears conversational speech. No nasal drainage. NECK: Supple without lymphadenopathy. CHEST: Nonlabored respirations with equal bilateral excursions. CARDIOVASCULAR: Distal 2+ pulses. ABDOMEN: Soft, nontender, no incisional hernias. Grade 2 panniculus with panniculitis. MUSCULOSKELETAL: No clubbing, cyanosis. NEURO: No focal or lateralizing signs. Cranial nerves 2 through 12 grossly within normal limits. PSYCH: Appropriate affect. Alert and oriented to person, place and time. SKIN: Good skin turgor. Well perfused. EGD FINDINGS: Acute gastrojejunal ulceration with mild stricture 15 mm ASSESSMENT: 1. Morbid obesity due to excess calories 2. Body mass index 47.3 to 30.9 3. Osteoarthritis of the knees. 4. Hypertensive heart disease. 5. Depressive disorder 6. Obstructive sleep apnea, improved 7. Fibromyalgia 8. Hypothyroidism 9. Hiatal hernia 10. Gastroesophageal reflux disease 11. Diverticulosis 12. Complications of sleeve gastrectomy 13. Status post gastric bypass 14. Migraines 15. Constipation. 16. Dysphagia due to gastrojejunal ulcer 17. Panniculitis PLAN: 1. Recommend food diary journal. 2. Nystatin powder prescribed. 3. Recommend pictures for her panniculitis. Objective - Vital Signs Vital signs: Vital Signs Temp 98.6 F 10/26/19 13:49 Pulse 73 10/26/19 13:49 Resp 16 10/26/19 13:49 BP 116/76 10/26/19 13:49 Pulse Ox Intake & Output 10/25/19 10/26/19 10/26/19 18:59 06:59 18:59 Weight 81.647 kg
== END | disposition home or self-care (01) ==
LOC: BARWHC3 13:24
PROVIDERS: ATTEND Surgery Plastic and Reconstructive Surgery
DX: E66.01 Morbid (severe) obesity due to excess calories (principal); Z68.30 Body mass index [BMI] 30.0-30.9, adult; Z98.84 Bariatric surgery status
CPT/HCPCS: 99211

== ENCOUNTER → 2020-01-20 | Outpatient (CLI) | payer OTHER ==
--- NOTE | 2020-01-24 11:49 | MM ---
Reason for exam: screening (asymptomatic). Last mammogram was performed 1 year ago. History: Patient is postmenopausal. Family history of breast cancer in paternal aunt at age 70. Benign excisional biopsy of the left breast, 2013. Benign excisional biopsy of the left breast, 2007. Took estrogen for 1 year. Took progesterone for 1 year. Physical Findings: A clinical breast exam by your physician is recommended on an annual basis and results should be correlated with mammographic findings. MG 3D Screening Mammo W/Cad Bilateral CC and MLO view(s) were taken. Prior study comparison: January 17, 2019, bilateral MG 3d screening mammo w/cad. January 14, 2018, bilateral MG 3d screening mammo w/cad. The breast tissue is heterogeneously dense. This may lower the sensitivity of mammography. Benign appearing bilateral calcifications. ASSESSMENT: Benign, BI-RAD 2 RECOMMENDATION: Routine screening mammogram of both breasts in 1 year.
== END | disposition home or self-care (01) ==
LOC: RADMAMWWP 14:00
PROVIDERS: ATTEND Family Medicine
DX: Z12.31 Encounter for screening mammogram for malignant neoplasm of breast (principal)
CPT/HCPCS: 77063; 77067

== ENCOUNTER → 2020-02-29 | Outpatient (CLI) | payer OTHER ==
[2020-02-29 13:27] VITALS: BP 129/80; PULSE 79; RESP 16; TEMP 97.6; BMI 29.8
--- NOTE | 2020-02-29 14:14 | P.PN ---
Subjective Progress Note Date: 02/29/20 DATE OF SERVICE: 02/29/2020 CHIEF COMPLAINT: Status post gastric bypass HISTORY OF PRESENT ILLNESS: Helen Ross is a 54-year-old female status post sleeve to gastric bypass, 05/30/19. She is 9 months out. She comes in with back pain. She reports having no gastroesophageal reflux disease. She has ost over 100+ pounds. She reports panniculitis. At height of 5 feet 4 inches, her ideal body weight is 144 pounds. Her highest weight was 298 pounds. Her BMI was 51.3. She comes in 174 pounds from 172 pounds, 2 months. She has gained 2 pounds, 2 months ago. Lifetime weight loss is 124 pounds. Her lifetime percent excess weight loss is 81 %. Her body mass index is down from 48.0 to 29.9. She is 30 pounds overweight. PHYSICAL EXAM: VITAL SIGNS: Height 5 foot 4 inches, weight 174 pounds. BMI 29.9 Vital Signs Temp 97.6 F 02/29/20 13:25 Pulse 79 02/29/20 13:25 Resp 16 02/29/20 13:25 BP 129/80 02/29/20 13:25 Pulse Ox GENERAL: Well-developed in no acute distress. HEENT: No scleral icterus. Extraocular movements grossly intact. Hears conversational speech. No nasal drainage. NECK: Supple without lymphadenopathy. CHEST: Nonlabored respirations with equal bilateral excursions. CARDIOVASCULAR: Distal 2+ pulses. ABDOMEN: Soft, nontender, no incisional hernias. Pannus over 10 pounds. MUSCULOSKELETAL: No clubbing, cyanosis. NEURO: No focal or lateralizing signs. Cranial nerves 2 through 12 grossly within normal limits. PSYCH: Appropriate affect. Alert and oriented to person, place and time. SKIN: Good skin turgor. Well perfused. ASSESSMENT: 1. Morbid obesity due to excess calories 2. Body mass index 47.3 to 29.9 3. Osteoarthritis of the knees. 4. Hypertensive heart disease. 5. Depressive disorder 6. Obstructive sleep apnea, improved 7. Fibromyalgia 8. Hypothyroidism 9. Hiatal hernia 10. Gastroesophageal reflux disease 11. Diverticulosis 12. Complications of sleeve gastrectomy 13. Status post gastric bypass 14. Migraines 15. Constipation. 16. Dysphagia due to gastrojejunal ulcer 17. Panniculitis PLAN: 1. Recommend Nystation for panniculitis. 2. May benefit from panniculectomy to restore function 3. Recommend bariatric labs. Objective - Vital Signs Vital signs: Vital Signs Temp 97.6 F 02/29/20 13:25 Pulse 79 02/29/20 13:25 Resp 16 02/29/20 13:25 BP 129/80 02/29/20 13:25 Pulse Ox Intake & Output 02/28/20 02/29/20 02/29/20 18:59 06:59 18:59 Weight 78.925 kg
== END | disposition home or self-care (01) ==
LOC: BARWHC3 13:00
PROVIDERS: ATTEND Surgery Plastic and Reconstructive Surgery
DX: Z48.815 Encounter for surgical aftercare following surgery on the digestive system (principal); E66.01 Morbid (severe) obesity due to excess calories; M17.0 Bilateral primary osteoarthritis of knee; I11.9 Hypertensive heart disease without heart failure; F32.9 Major depressive disorder, single episode, unspecified; G47.33 Obstructive sleep apnea (adult) (pediatric); M79.7 Fibromyalgia; E03.9 Hypothyroidism, unspecified; K44.9 Diaphragmatic hernia without obstruction or gangrene; K21.9 Gastro-esophageal reflux disease without esophagitis; K57.90 Diverticulosis of intestine, part unspecified, without perforation or abscess without bleeding; G43.909 Migraine, unspecified, not intractable, without status migrainosus; K59.00 Constipation, unspecified; R13.10 Dysphagia, unspecified; M79.3 Panniculitis, unspecified; Z68.29 Body mass index [BMI] 29.0-29.9, adult; Z98.84 Bariatric surgery status
CPT/HCPCS: 99211

== ENCOUNTER → 2020-04-17 | Outpatient (CLI) | payer OTHER ==
--- NOTE | 2020-04-18 07:16 | MR ---
EXAMINATION TYPE: MR brain/cspine wo DATE OF EXAM: 04/17/2020 COMPARISON: NONE HISTORY: Recurrent falls per order. Headache with upper neck pain for 10+ years along with memory los s and bilateral hearing loss per patient. Prior fall injury. TECHNIQUE: Multiplanar, multisequence imaging of the brain, brainstem, and cervical spine are all per formed without IV contrast. Trauma protocol FINDINGS: Brain: Diffusion weighted images demonstrate no evidence of a recent infarct or other diffusion abnormality. There is no worrisome extra-axial fluid collection. Mild ventricular and sulcal prominence. T2 Star w eighted images show no suspicious intraparenchymal blood product. Occasional scattered tiny focus of T2 hyperintensity, less than 5 scattered lesions are present. Midline structures demonstrate normal morphology. The craniocervical junction appears within normal limits. Normal vascular flow voids are present. Incidental visualization of patent anterior communica ting artery. There is 9 mm mucous retention cyst or polyp in the posterior medial right maxillary sin us. Remainder paranasal sinuses are clear. Some distortion artifact at level of the anterior globes. No suspicious opacification of mastoid air cells is present bilaterally. Nasal septum is deviated to left of midline. IMPRESSION: Mild diffuse age-related cerebral atrophy and minimal chronic small vessel ischemic moore e. Cervical spine: FINDINGS: Coronal images show levoconvex scoliotic curvature and/or positioning centered in the upper thoracic spine. Sagittal images of the cervical spine show the craniocervical junction to appear wit hin normal limits. The cervical and upper thoracic spinal cord is normal in caliber and signal. Ther e is grade 1 retrolisthesis C3 on C4, C4 on C5, C5 on C6, and C6 on C7 on sagittal images. The verte bral body heights are normal. Mild disc space narrowing C4-C5 through the C6-C7 level with mild to mo derate anterior spurring. Heterogeneous Modic type I endplate changes posterior C5-C6 level. Axial images show C2-C3 level to appear within normal limits. Axial images at C3-C4 level show right paracentral disc protrusion effacing the anterior thecal sac a long with uncovertebral facet degenerative changes causing mild left greater than right bilateral marco antonio ral foraminal narrowing. Spondylolisthesis is present. Axial images at C4-C5 levels show spondylolisthesis with mild broad-based spur disc complex effacing the anterior thecal sac and causing mild bilateral neural foraminal narrowing. Axial images at C5-C6 level show spondylolisthesis with moderate broad-based right paracentral spur d isc complex effacing the anterior thecal sac and causing mild to moderate right greater than left lewis ateral neural foraminal narrowing. Axial images at C6-C7 level showed broad base left paracentral disc protrusion effacing anterolateral thecal sac and causing moderate to severe left-sided neural foraminal narrowing with some uncoverteb ral facet spurring on the left present. The right-sided neural foramina. Axial images at C7-T1 level are within normal limits. Visualized portion of the thyroid gland is unremarkable. IMPRESSION: Scoliotic curvature. Multilevel spondylolisthesis and degenerative changes C3-C4 through the C6-C7 levels as detailed above.
== END | disposition home or self-care (01) ==
LOC: RADMRIMAIN 12:37
PROVIDERS: ATTEND Psychiatry & Neurology Neurology
DX: M43.12 Spondylolisthesis, cervical region (principal); M47.812 Spondylosis without myelopathy or radiculopathy, cervical region; M41.82 Other forms of scoliosis, cervical region; G31.1 Senile degeneration of brain, not elsewhere classified; I67.82 Cerebral ischemia
CPT/HCPCS: 70551; 72141

== ENCOUNTER → 2020-05-02 | Outpatient (CLI) | payer OTHER ==
[2020-05-02 13:37] VITALS: BP 128/88; PULSE 75; RESP 18; TEMP 98.3; BMI 29.7
--- NOTE | 2020-05-02 14:31 | P.PN ---
Subjective Progress Note Date: 05/02/20 DATE OF SERVICE: 05/02/2020 CHIEF COMPLAINT: Status post gastric bypass HISTORY OF PRESENT ILLNESS: Helen Ross is a 54-year-old female status post sleeve to gastric bypass, 05/30/19. She is 10 months out. She comes in with problems with panniculitis. She reports severe back pain and sees a chiropractor for her pain. She has troubles with her activities of daily living including grooming and clothing. She presents for evaluation for panniculectomy. At height of 5 feet 4 inches, her ideal body weight is 140 pounds. Her highest weight was 298 pounds. Her BMI was 51.3. She comes in 173 pounds from 174 pounds, 2 months ago. She has lost 1 pound, 2 months ago. Lifetime weight loss is 125 pounds. Her lifetime percent excess weight loss is 79 %. Her body mass index is down from 48.0 to 29.7. She is 33 pounds overweight. PHYSICAL EXAM: VITAL SIGNS: Height 5 foot 4 inches, weight 173 pounds. BMI 29.7 Vital Signs Temp 98.3 F 05/02/20 13:32 Pulse 75 05/02/20 13:32 Resp 18 05/02/20 13:32 BP 128/88 05/02/20 13:32 Pulse Ox GENERAL: Well-developed in no acute distress. HEENT: No scleral icterus. Extraocular movements grossly intact. Hears conversational speech. No nasal drainage. NECK: Supple without lymphadenopathy. CHEST: Nonlabored respirations with equal bilateral excursions. CARDIOVASCULAR: Distal 2+ pulses. ABDOMEN: Nontender. Grade 3 panniculosis over 10+ pound pannus. MUSCULOSKELETAL: No clubbing, cyanosis. NEURO: No focal or lateralizing signs. Cranial nerves 2 through 12 grossly within normal limits. PSYCH: Appropriate affect. Alert and oriented to person, place and time. SKIN: Good skin turgor. Well perfused. ASSESSMENT: 1. Morbid obesity due to excess calories 2. Body mass index 47.3 to 29.7 3. Osteoarthritis of the knees. 4. Hypertensive heart disease. 5. Depressive disorder 6. Obstructive sleep apnea, improved 7. Fibromyalgia 8. Hypothyroidism 9. Hiatal hernia 10. Gastroesophageal reflux disease 11. Diverticulosis 12. Complications of sleeve gastrectomy 13. Status post gastric bypass 14. Migraines 15. Constipation. 16. Dysphagia due to gastrojejunal ulcer 17. Panniculitis PLAN: 1. Recommend referral to [facility] for management of panniculitis. 2. Recommend pictures of her pannus. 3. Continue Nystatin powder in the interim. Objective - Vital Signs Vital signs: Vital Signs Temp 98.3 F 05/02/20 13:32 Pulse 75 05/02/20 13:32 Resp 18 05/02/20 13:32 BP 128/88 05/02/20 13:32 Pulse Ox Intake & Output 05/01/20 05/02/20 05/02/20 18:59 06:59 18:59 Weight 78.471 kg
== END | disposition home or self-care (01) ==
LOC: BARWHC3 13:06
PROVIDERS: ATTEND Surgery Plastic and Reconstructive Surgery
DX: Z48.815 Encounter for surgical aftercare following surgery on the digestive system (principal); E66.01 Morbid (severe) obesity due to excess calories; Z68.42 Body mass index [BMI] 45.0-49.9, adult; M17.0 Bilateral primary osteoarthritis of knee; I11.9 Hypertensive heart disease without heart failure; F32.9 Major depressive disorder, single episode, unspecified; G47.33 Obstructive sleep apnea (adult) (pediatric); M79.7 Fibromyalgia; E03.9 Hypothyroidism, unspecified; K44.9 Diaphragmatic hernia without obstruction or gangrene; K21.9 Gastro-esophageal reflux disease without esophagitis; K57.90 Diverticulosis of intestine, part unspecified, without perforation or abscess without bleeding; K59.00 Constipation, unspecified; G43.909 Migraine, unspecified, not intractable, without status migrainosus; R13.10 Dysphagia, unspecified; K28.9 Gastrojejunal ulcer, unspecified as acute or chronic, without hemorrhage or perforation; M79.3 Panniculitis, unspecified; Z98.84 Bariatric surgery status
CPT/HCPCS: 99211

== ENCOUNTER → 2020-05-02 | Outpatient (CLI) | payer OTHER ==
[2020-05-02 15:28] LABS: Basophils % (A) 1 %; Eosinophils # (A) 0.1 k/uL (0-0.7); Eosinophils % (A) 2 %; HCT 39.9 % (34.0-46.0); HGB 13.8 gm/dL (11.4-16.0); Lymphocytes # (A) 1.4 k/uL (1.0-4.8); Lymphocytes % (A) 26 %; MCH 30.2 pg (25.0-35.0); MCHC 34.5 g/dL (31.0-37.0); MCV 87.4 fL (80.0-100.0); Mean Platelet Volume 7.4; Monocytes # (A) 0.2 k/uL (0-1.0); Monocytes % (A) 4 %; Neutrophils # (A) 3.5 k/uL (1.3-7.7); Neutrophils % (A) 67 %; Platelet Count 233 k/uL (150-450); RBC 4.57 m/uL (3.80-5.40); RDW 12.9 % (11.5-15.5); WBC 5.2 k/uL (3.8-10.6)
[2020-05-03 01:29] LABS: Hemoglobin A1C 4.9 % (4.0-6.0)
[2020-05-03 02:19] LABS: African American GFR (CKD) 82.8 (60.0-200.0); Anion Gap 11.7 mmol/L (4.00-12.00); BUN/Creat Ratio 17.78 Ratio (12.00-20.00); Calcium 10.4 mg/dL (8.7-10.3); Carbon Dioxide 30.3 mmol/L (21.6-31.8); Non-African American GFR(CKD) 71.5 (60.0-200.0); Potassium 5.2 mmol/L (3.5-5.5)
== END | disposition home or self-care (01) ==
LOC: LABWHC1 13:03
PROVIDERS: ATTEND Orthopaedic Surgery
DX: M25.561 Pain in right knee (principal); M25.562 Pain in left knee; G89.29 Other chronic pain
CPT/HCPCS: 36415; 80048; 83036; 85025; 87070

== ENCOUNTER → 2020-07-18 | Outpatient (CLI) | payer OTHER ==
[2020-07-18 13:12] VITALS: BP 150/93; PULSE 89; RESP 18; TEMP 98.8; BMI 29.3
--- NOTE | 2020-07-18 13:36 | P.PN ---
Subjective Progress Note Date: 07/18/20 She wants panniculectomy. She comes in with chronic pain in her needs. She reports trouble with her panniculus. Wants pictures of pannus. Has open cholecystectomy scar. She had a recent left knee revision. She ambulates. Recommend block. Pain post-op prescriptions described. Objective - Vital Signs Vital signs: Vital Signs Temp 98.8 F 07/18/20 13:07 Pulse 89 07/18/20 13:07 Resp 18 07/18/20 13:07 BP 150/93 07/18/20 13:07 Pulse Ox Intake & Output 07/17/20 07/18/20 07/18/20 18:59 06:59 18:59 Weight 77.564 kg
== END | disposition home or self-care (01) ==
LOC: BARWHC3 12:49
PROVIDERS: ATTEND Surgery Plastic and Reconstructive Surgery
DX: E66.01 Morbid (severe) obesity due to excess calories (principal); Z68.29 Body mass index [BMI] 29.0-29.9, adult; K21.9 Gastro-esophageal reflux disease without esophagitis; E78.5 Hyperlipidemia, unspecified; I10 Essential (primary) hypertension; E07.9 Disorder of thyroid, unspecified; Z98.84 Bariatric surgery status; F32.9 Major depressive disorder, single episode, unspecified
CPT/HCPCS: 99211

== ENCOUNTER → 2020-07-18 | Outpatient (CLI) | payer OTHER ==
[2020-07-18 16:17] LABS: Basophils % (A) 1 %; Eosinophils # (A) 0.1 k/uL (0-0.7); Eosinophils % (A) 1 %; HCT 38.6 % (34.0-46.0); HGB 13.2 gm/dL (11.4-16.0); Lymphocytes # (A) 1.2 k/uL (1.0-4.8); Lymphocytes % (A) 23 %; MCH 29.6 pg (25.0-35.0); MCHC 34.2 g/dL (31.0-37.0); MCV 86.7 fL (80.0-100.0); Mean Platelet Volume 7.7; Monocytes # (A) 0.2 k/uL (0-1.0); Monocytes % (A) 4 %; Neutrophils # (A) 3.7 k/uL (1.3-7.7); Neutrophils % (A) 70 %; Platelet Count 226 k/uL (150-450); RBC 4.45 m/uL (3.80-5.40); WBC 5.3 k/uL (3.8-10.6)
[2020-07-18 16:49] LABS: ALT 23 U/L (4-34); AST 29 U/L (14-36); African American GFR (CKD) >90 (>60 ml/min/1.73 sqM); Albumin 4.7 g/dL (3.5-5.0); Alkaline Phosphatase 111 U/L (38-126); Anion Gap 8 mmol/L; Blood Urea Nitrogen 11 mg/dL (7-17); Calcium 9.9 mg/dL (8.4-10.2); Carbon Dioxide 33 mmol/L (22-30); Chloride 99 mmol/L (98-107); Glucose 89 mg/dL (74-99); Non-African American GFR(CKD) 86 (>60 ml/min/1.73 sqM); Potassium 4.9 mmol/L (3.5-5.1); Sodium 140 mmol/L (137-145); Total Bilirubin 0.4 mg/dL (0.2-1.3); Total Protein 7.4 g/dL (6.3-8.2)
== END | disposition home or self-care (01) ==
LOC: LABPAT 13:51
PROVIDERS: ATTEND Surgery Plastic and Reconstructive Surgery
DX: Z01.818 Encounter for other preprocedural examination (principal); R94.31 Abnormal electrocardiogram [ECG] [EKG]
CPT/HCPCS: 80053; 85025; 93005

== ENCOUNTER 2020-07-23 07:30 | Observation (INO) | payer OTHER ==
[2020-07-17 09:43] VITALS: BMI 28.6
--- NOTE | 2020-07-23 07:27 | P.GSHP ---
History of Present Illness H&P Date: 07/23/20 CHIEF COMPLAINT: Status post gastric bypass HISTORY OF PRESENT ILLNESS: Helen Ross is a 54-year-old female status post sleeve to gastric bypass, 05/30/19. She reports chronic panniculitis and odor from her skin and has been on treatment for over 1 year. She reports her powder barely works. She reports occasional back pain. She is taking multivitamin from [employer]. Her highest weight is 298 pounds. At height of 5 feet 4 inches, her ideal body weight is 144 pounds. Her highest weight was 298 pounds. Her BMI was 51.3. Lifetime weight loss over 126 pounds. Her lifetime percent excess weight loss is 82 %. Her body mass index is down from 48.0 to 29.5. She is 28 pounds overweight. PAST MEDICAL HISTORY: 1. Morbid obesity due to excess calories 2. Body mass index of 48.0, initial 3. Osteoarthritis of the knees. 4. Hypertensive heart disease. 5. Depressive disorder 6. Obstructive sleep apnea 7. Fibromyalgia 8. Hypothyroidism 9. Gastroesophageal reflux disease. 10. Chronic constipation 11. Diverticulosis PAST SURGICAL HISTORY: 1. Bilateral knee arthroplasty 2. Sleeve gastrectomy 3. Lap band surgery 4. Cholecystectomy 5. Heart catheterization 6. Appendectomy 7. section 8. Hysterectomy 9. D&C 10. Left breast biopsy 11. Hiatal hernia repair 12. Colonoscopy HOME MEDICATIONS: ALLERGIES: Home Medications Medication Instructions Recorded Confirmed Levothyroxine Sodium [Synthroid] 25 mcg PO QAM 09/22/14 07/18/20 DULoxetine HCL [Cymbalta] 60 mg PO BID 06/12/15 07/18/20 lamoTRIgine [LaMICtal] 200 mg PO BID 06/02/18 07/18/20 traZODone HCL 100 mg PO HS 01/07/19 07/18/20 Previous Rx's Medication Instructions Recorded Nystatin 100,000 Unit/gm Powd 1 applic TOPICAL BID #60 powder 09/28/19 [Mycostatin Powder] Omeprazole [PriLOSEC] 40 mg PO BID #28 cap 10/13/19 Allergies Allergy/AdvReac Type Severity Reaction Status Date / Time morphine AdvReac Itching Verified 07/18/20 13:23 Ruextby-Wvs-Vsj Reductase AdvReac muscle Verified 07/18/20 13:23 Inhibitor aches SOCIAL HISTORY: No tobacco use. FAMILY HISTORY: No family history of ulcerative colitis disease or Crohn's disease. Family history of morbid obesity. No lupus in the family. No reports of stomach or esophageal cancer. REVIEW OF ORGAN SYSTEMS: CONSTITUTIONAL: At height of 5 feet 4 inches, her ideal body weight is 144 pounds. Her highest weight was 279 pounds. Her BMI was 48.0. HEENT: Denies any active troubles with vision or hearing. Has some troubles with swallowing. ENDOCRINE: No diabetes. Has hypothyroidism. CARDIOVASCULAR: No reports of palpitations or heart attacks or chest pain. RESPIRATORY: Has daytime somnolence. Has asthma. GI: Denies any bright red blood per rectum. No diarrhea. Has constipation. Has gastroesophageal reflux disease MUSCULOSKELETAL: Has lower back pain and joint pain. Has osteoarthritis of the knees. NEURO: No headaches. Has seizure disorders. PSYCH: Has depression. No suicidal ideation. RHEUMATOLOGIC: No lupus. No rheumatoid arthritis. HEMATOLOGIC: Denies any abnormal bleeding or bruising. No personal history of DVTs. SKIN: No rash. No skin cancer. PHYSICAL EXAM: VITAL SIGNS: Height 5 foot 4 inches, weight 172 pounds. BMI 29.5 GENERAL: Well-developed in no acute distress. HEENT: No scleral icterus. Extraocular movements grossly intact. Hears conversational speech. No nasal drainage. NECK: Supple without lymphadenopathy. CHEST: Nonlabored respirations with equal bilateral excursions. CARDIOVASCULAR: Distal 2+ pulses. ABDOMEN: Soft, nontender. Grade 3 panniculus with panniculitis. MUSCULOSKELETAL: No clubbing, cyanosis. NEURO: No focal or lateralizing signs. Cranial nerves 2 through 12 grossly within normal limits. PSYCH: Appropriate affect. Alert and oriented to person, place and time. SKIN: Good skin turgor. Well perfused. ASSESSMENT: 1. Morbid obesity due to excess calories 2. Body mass index 47.3 to 28.7 3. Osteoarthritis of the knees. 4. Hypertensive heart disease. 5. Depressive disorder 6. Obstructive sleep apnea, improved 7. Fibromyalgia 8. Hypothyroidism 9. Hiatal hernia 10. Gastroesophageal reflux disease 11. Diverticulosis 12. Complications of sleeve gastrectomy 13. Status post gastric bypass 14. Migraines 15. Constipation. 16. Panniculitis PLAN: 1. Recommend panniculectomy for chronic panniculitis with concomittant severe lower back pain and uncontrolled symptoms despite systemic and local treatment including limitation of activities of daily living. Anticipated resection over 10+ pounds described. Panniculectomy should correct her functional deficits. 2. Recommend 2 week protein diet for optimal recovery 3. Risks of bleeding, needs for drains, flap failure, infection, need for further surgery were described. She is high risk for karen-operative complications with anticipated 10+ skin resection. 4. Inpatient hospitalization also described 5. DVT prophylaxis. 6 Antibiotic prophylaxis 7. Extended recovery more than 6-8 weeks described including placement of dr haney more than 2 weeks reviewed. Past Medical History Past Medical History: Fibromyalgia, GERD/Reflux, Hyperlipidemia, Hypertension, Osteoarthritis (OA), Sleep Apnea/CPAP/BIPAP, Thyroid Disorder Additional Past Medical History / Comment(s): HIATAL HERNIA, PREV HX OF HTN-HAS HAD WT LOSS SO NO LONGER ON MEDICATION, uses CPAP History of Any Multi-Drug Resistant Organisms: None Reported Past Surgical History: Appendectomy, Bariatric Surgery, Breast Surgery, Section, Cholecystectomy, Heart Catheterization, Hysterectomy, Joint Replacement, Orthopedic Surgery Additional Past Surgical History / Comment(s): lewis knee arthroplasty. lewis knee MANIPULATION, REVISION OF TOTAL RT KNEE, D&C. LEFT BREAST BIOSPIES x 2, Sleeve gastrectomy, bunionectomy left foot, Gastric Bypass 05/30/19, EGD, COLONOSCOPY. left knee revision 05/16/2020 Past Anesthesia/Blood Transfusion Reactions: Previous Problems w/ Anesthesia, Motion Sickness, Postoperative Nausea & Vomiting (PONV) Additional Past Anesthesia/Blood Transfusion Reaction / Comment(s): STATES SHE STOPPED BREATHING DURING SURGERY FOR TOTAL KNEE REPLACEMENT(@[facility] 04/2014) DUE TO SLEEP APNEA Past Psychological History: Anxiety, Depression Additional Psychological History / Comment(s): . Smoking Status: Never smoker Past Alcohol Use History: None Reported Past Drug Use History: None Reported - Past Family History Mother Family Medical History: No Reported History Additional Family Medical History / Comment(s): . Medications and Allergies Home Medications Medication Instructions Recorded Confirmed Type Levothyroxine Sodium [Synthroid] 25 mcg PO QAM 09/22/14 07/18/20 History DULoxetine HCL [Cymbalta] 60 mg PO BID 06/12/15 07/18/20 History lamoTRIgine [LaMICtal] 200 mg PO BID 06/02/18 07/18/20 History traZODone HCL 100 mg PO HS 01/07/19 07/18/20 History Nystatin 100,000 Unit/gm Powd 1 applic TOPICAL BID #60 powder 09/28/19 07/18/20 Rx [Mycostatin Powder] Omeprazole [PriLOSEC] 40 mg PO BID #28 cap 10/13/19 07/18/20 Rx Allergies Allergy/AdvReac Type Severity Reaction Status Date / Time morphine AdvReac Itching Verified 07/18/20 13:23 Yhrpzym-Eby-Utd Reductase AdvReac muscle Verified 07/18/20 13:23 Inhibitor aches
[~2020-07-23 07:30] MED LIST changes: +ACETAMINOPHEN TAB 500 MG TAB PO PRN; +GABAPENTIN 300 MG CAP PO PRN; -LACTATED RINGERS 1,000 ML IV SCH; +LIDOCAINE 1% (10MG/ML) FOR IV START INTRADERMA PRN; +MIDAZOLAM 2 MG/2 ML VIAL IV PRN; +ONDANSETRON 4 MG/2 ML VIAL IVP ONE
[2020-07-23] MEDS: LACTATED RINGERS 1,000 ML IV SCH (12:57)
[2020-07-23] MEDS ORDERED: DEXAMETHASONE SOD PHOSPHATE 4 MG/ML 1 ML VIAL IVP ONE (12:58)
[2020-07-23 13:21] LABS: Basophils % (A) 1 %; Eosinophils # (A) 0.1 k/uL (0-0.7); Eosinophils % (A) 2 %; HCT 37.7 % (34.0-46.0); HGB 12.9 gm/dL (11.4-16.0); Lymphocytes # (A) 1.3 k/uL (1.0-4.8); Lymphocytes % (A) 27 %; MCHC 34.2 g/dL (31.0-37.0); MCV 84.8 fL (80.0-100.0); Mean Platelet Volume 7.5; Monocytes # (A) 0.2 k/uL (0-1.0); Monocytes % (A) 5 %; Neutrophils # (A) 3.1 k/uL (1.3-7.7); Neutrophils % (A) 65 %; Platelet Count 259 k/uL (150-450); RBC 4.45 m/uL (3.80-5.40); RDW 13.1 % (11.5-15.5); WBC 4.8 k/uL (3.8-10.6)
[2020-07-23] MEDS ORDERED: MIDAZOLAM 2 MG/2 ML VIAL IVP ONE (13:38)
[2020-07-23] MEDS ORDERED: fentaNYL (PF) 50 MCG/ML 2 ML AMP IVP ONE (13:39)
--- NOTE | 2020-07-23 14:07 | P.ANPRN ---
Procedure Note - Anesthesia - Nerve Block Performed :38 Time Out Performed: Yes Date of Procedure: 07/23/20 Procedure Start Time: :38 Procedure Stop Time: 13:54 Location of Patient: PreOp Indication: Acute Post-Operative Pain, Requested by Surgeon Sedation Type: Sedate with meaningful contact maintained Preparation: Sterile Prep Position: Prone Catheter: None Needle Types: Pajunk Needle Gauge: 21 Ultrasound used to visualize needle placement: Yes Ultrasound used to observe medication spread: Yes Injectate: 0.5% Ropivacaine (see comment for volume) (15cc + PF normal saline 10cc each side) Blood Aspirated: No Pain Paresthesia on Injection Noted: No Resistance on Injection: Normal Image Stored and Saved: Yes Events: Uneventful and Well Tolerated
[2020-07-23] MEDS ORDERED: HYDROmorphone (PF) 1 MG/ML ONE (16:13)
[2020-07-23] MEDS ORDERED: fentaNYL (PF) 50 MCG/ML 2 ML AMP ONE (16:13)
[2020-07-23] MEDS ORDERED: PROPOFOL 10 MG/ML 20 ML VIAL IV ONE (16:13)
[2020-07-23] MEDS ORDERED: GLYCOPYRROLATE 0.2 MG/ML 2 ML VIAL ONE (16:13)
[2020-07-23] MEDS ORDERED: MIDAZOLAM 2 MG/2 ML VIAL ONE (16:13)
[2020-07-23] MEDS ORDERED: NEOSTIGMINE 1 MG/ML 10 ML VIAL ONE (16:13)
[2020-07-23] MEDS ORDERED: ROPIVACAINE 5 MG/ML 30 ML VIAL ONE (16:13)
[2020-07-23] MEDS ORDERED: ROCURONIUM 10 MG/ML (5 ML VIAL) IV ONE (16:13)
[2020-07-23] MEDS ORDERED: LIDOCAINE 1% INJ 10MG/ML (20 ML MDV) ONE (16:13)
[2020-07-23] MEDS ORDERED: SUCCINYLCHOLINE CHLORIDE 100 MG/5 ML SYR IV ONE (16:13)
[2020-07-23] MEDS ORDERED: SODIUM CHLORIDE 0.9% (PF) 10 ML VIAL ONE (16:13)
[2020-07-23] MEDS ORDERED: LACTATED RINGERS 1,000 ML IV ONE (18:55)
[2020-07-23] MEDS ORDERED: HYDROmorphone 1 MG/ML 1 ML SYRINGE IVP PRN (19:30)
[2020-07-23] MEDS ORDERED: NALOXONE 0.4 MG/ML 1 ML VIAL IV PRN (19:30)
[2020-07-23] MEDS ORDERED: 0.9% NACL WITH KCL 20 MEQ/L 1,000 ML IV SCH (19:30)
--- NOTE | 2020-07-23 19:30 | P.OP ---
Date of Procedure: 07/23/20 Description of Procedure: SURGEON: KRISS AKHTAR MD PREOPERATIVE DIAGNOSES: 1. Panniculitis 2. Adiposus panniculus. 3. Morbid obesity due to excess calories 4. Body mass index 47.3 to 29.1 5. Osteoarthritis of the knees. 6. Hypertensive heart disease. 7. Depressive disorder 8. Obstructive sleep apnea, improved 9. Fibromyalgia 10. Hypothyroidism 11. Status post gastric bypass 12. Migraines POSTOPERATIVE DIAGNOSES: 1. Panniculitis 2. Adiposus panniculus. 3. Morbid obesity due to excess calories 4. Body mass index 47.3 to 29.1 5. Osteoarthritis of the knees. 6. Hypertensive heart disease. 7. Depressive disorder 8. Obstructive sleep apnea, improved 9. Fibromyalgia 10. Hypothyroidism 11. Status post gastric bypass 12. Migraines 13. Abdominal ventral hernia, 30 x 11 cm, unrelated to prior bariatric surgery. OPERATION: 1. Panniculectomy. 2. Primary repair of ventral hernia 30 x 11 cm cm without mesh. 3. Abdominal wall reconstruction with myocutaneous bilateral flap advancement. ANESTHESIA: General, regional block ESTIMATED BLOOD LOSS: 100 mL SPECIMENS REMOVED: Pannus 4.88 pounds. COMPLICATIONS: None. CONDITION: Stable. DRAINS: Two #19 Aime drains below abdominal flap extending through the pubis. OPERATIVE FINDINGS: 1. Pannus weighing 4.88 pounds, excised. 2. Abdominal ventral hernia of 30 x 11 cm along the midline repaired primarily using fascial imbrication. INDICATIONS: The patient is a 54-year-old female with a history of massive we ight loss over 100 pounds over 2 years. Despite medical therapy with prescription powders such as Nystatin over 1 year, she has developed severe medical refractory panniculitis including chronic lower back pain. Her body mass index has been reduced from approximately 47.3 down to 29.1. Given her clinical symptoms, including massive weight loss, she elected for surgical intervention with a panniculectomy. Benefits and risks of the procedure including bleeding, infection, risk of flap failure were described at length. Informed consent was obtained. DESCRIPTION: In the preanesthesia care unit the patient was marked with an indelible marker. Additionally, regional block was placed per anesthesia She had also been given heparin subcutaneously. The patient was brought into the operating room and laid in supine position. After general induction, a Terry catheter was placed. The abdomen was then prepped and draped in standard sterile fashion using ChloraPrep. The skin was prepped as far laterally to the back, inferiorly to the upper thighs and superiorly to above the bilateral breasts. A timeout protocol was confirmed with the surgical team regarding patient's name, procedure to be performed, including preoperative medications. She had received Ancef 2 grams IV antibiotics. Once the time-out protocol was confirmed with the surgical team, the patient was re-marked with indelible marker whereby the midline of the xiphoid to the mons pubis was marked. The anterior/superior iliac spine along the bilateral hips was also marked. Approximately 8 cm above the pubis commissure a transverse incision was made for the inferior portion of the flap. Using a #10 blade, the incision was taken from the midline laterally to above the anterior/superior iliac spine, initially on the left side of the patient and then on the right side of the patient. Electro-Bovie cautery was used to control for hemostasis. The dissection was taken down to the level of the fascia. Landmarks used were the xiphoid process as well as the bilateral costal margins for the superior margin. Care was taken to avoid any creation of dog ears during the dissection. Once hemostasis was checked, a large ventral hernia fascial defect of 11 x 30 cm was identified. During this dissection, the umbilicus was truncated at its fascial insertion. Bilateral myocutaneous flap advancement was performed to close the large defect of 11 x 30 cm using the rectus muscle. After the flaps were raised, the midline was re-marked again from the xiphoid to the pubis commissure. Fascial imbrication was proposed for primary repair and to reinforce the bilateral myocutaneous flap advancement. Starting from the xiphoid process, the rectus muscle was overlapped in the bilateral myocutaneous flap advancement using #2 Ethibond. The ventral hernia defect was completely repaired and closed. Hemostasis was once again checked with electro-Bovie cautery and all defects were addressed. Attention was now brought to closure of the flap. Using stainless steel skin eric, the midline was once again marked of the upper flap as well as the pubic commissure. The patient was placed in a flexed position of approximately 30 degrees at the hips. The pannus was extended inferiorly to the feet. The upper flap was created once the excess skin was excised. Again care was taken to avoid any dog ears along the lateral aspect of the incisions. Once excised, the pannus weighed approximately 4.88 pounds. The upper and lower flaps were reapproximated at the midline and then laterally to the skin with skin eric. Once reapproximated, the skin was closed in layers using 0 Vicryl for the superficial fascial system followed by running 3-0 Monocryl for the deep dermis and finally 4-0 Monocryl in a running subcuticular fashion. Prior to skin closure, two round #19 Aime drains were placed underneath the flap and brought out just inferior to the incision along the pubis. Drain stitch using 2-0 nylon was placed. Once the incision was closed, bulb suction was attached. Hemostasis was checked. Exofin tape with glue including Optifoam dressing was placed. At the end of the procedure, the needle, sponge and instrument count was verified correct. The patient was then transferred to a hospital bed in a beach chair position. An abdominal binder was placed and marked. The patient was taken to the postanesthesia care unit in stable condition, awake and extubated.
[2020-07-23] MEDS ORDERED: fentaNYL (PF) 50 MCG/ML 2 ML AMP IVP PRN (19:32)
[2020-07-23] MEDS ORDERED: SODIUM CHLORIDE 0.9% 2,000 ML IV ONE (19:35)
[2020-07-23] MEDS ORDERED: HYDROmorphone 1 MG/ML 1 ML SYRINGE IVP ONE ×2 (19:45→19:50)
[2020-07-23] MEDS ORDERED: SODIUM CHLORIDE 0.9% 1,000 ML IV ONE (20:15)
[2020-07-23] MEDS ORDERED: traZODone HCL 50 MG TAB PO SCH (21:00)
[2020-07-23] MEDS: DULoxetine HCL 60 MG CAPSULE.DR PO SCH (21:28)
[2020-07-23] MEDS: ACETAMINOPHEN TAB 500 MG TAB PO SCH (21:28)
[2020-07-23] MEDS: lamoTRIgine 100 MG TAB PO SCH (21:28)
[2020-07-24] MEDS: ACETAMINOPHEN TAB 500 MG TAB PO SCH ×3 (01:00→11:53)
[2020-07-24] MEDS: KETOROLAC 15 MG/ML 1 ML VIAL IVP SCH ×3 (01:00→11:53)
[2020-07-24] MEDS ORDERED: LEVOTHYROXINE 25 MCG TAB PO SCH (06:30)
[2020-07-24] MEDS: LACTATED RINGERS 1,000 ML IV SCH (07:24)
[2020-07-24] MEDS ORDERED: 0.9% NACL WITH KCL 20 MEQ/L 1,000 ML IV SCH (08:00)
[2020-07-24] MEDS: lamoTRIgine 100 MG TAB PO SCH (08:22)
[2020-07-24] MEDS: DULoxetine HCL 60 MG CAPSULE.DR PO SCH (08:22)
[2020-07-24 08:30] LABS: Basophils % (A) 1 %; Eosinophils % (A) 1 %; HCT 28.2 % (34.0-46.0); Lymphocytes # (A) 1.3 k/uL (1.0-4.8); Lymphocytes % (A) 25 %; MCH 29.7 pg (25.0-35.0); MCHC 34.5 g/dL (31.0-37.0); MCV 86.3 fL (80.0-100.0); Mean Platelet Volume 7.5; Monocytes # (A) 0.3 k/uL (0-1.0); Monocytes % (A) 6 %; Neutrophils # (A) 3.5 k/uL (1.3-7.7); Neutrophils % (A) 66 %; Platelet Count 222 k/uL (150-450); RBC 3.26 m/uL (3.80-5.40); RDW 13.3 % (11.5-15.5); WBC 5.3 k/uL (3.8-10.6)
[2020-07-24 08:36] LABS: HGB 9.7 gm/dL (11.4-16.0)
[2020-07-24 08:46] VITALS: BP 99/61; PULSE 88; RESP 20; TEMP 98.2
[2020-07-24] MEDS ORDERED: ENOXAPARIN 30 MG/0.3 ML SYRINGE SQ SCH (09:00)
[2020-07-24] MEDS ORDERED: PANTOPRAZOLE 40 MG/10 ML VIAL IV SCH (09:00)
--- NOTE | 2020-07-24 14:02 | P.DS ---
Providers Date of admission: 07/23/20 12:18 Expected date of discharge: 07/24/20 Attending physician: Mady Fierro Consults: 07/23/20 07:22 Consult Physician Routine Consulting Provider: [facility] Consult Reason/Comments: Regional block Do you want consulting provider notified?: Yes Primary care physician: Roly Dinero Plan - Discharge Summary Discharge Rx Participant: Yes New Discharge Prescriptions: New Acetaminophen Tab [Tylenol Tab] 1,000 mg PO Q6HR PRN #30 tablet PRN Reason: Pain Cyclobenzaprine [Flexeril] 10 mg PO TID #30 tab Continue Levothyroxine Sodium [Synthroid] 25 mcg PO QAM DULoxetine HCL [Cymbalta] 60 mg PO BID lamoTRIgine [LaMICtal] 200 mg PO BID traZODone HCL 100 mg PO HS Omeprazole [PriLOSEC] 40 mg PO BID #28 cap Discontinued Nystatin 100,000 Unit/gm Powd [Mycostatin Powder] 1 applic TOPICAL BID #60 p owder Discharge Medication List Levothyroxine Sodium [Synthroid] 25 mcg PO QAM 09/22/14 [History] DULoxetine HCL [Cymbalta] 60 mg PO BID 06/12/15 [History] lamoTRIgine [LaMICtal] 200 mg PO BID 06/02/18 [History] traZODone HCL 100 mg PO HS 01/07/19 [History] Omeprazole [PriLOSEC] 40 mg PO BID #28 cap 10/13/19 [Rx] Acetaminophen Tab [Tylenol Tab] 1,000 mg PO Q6HR PRN #30 tablet 07/24/20 [Rx] Cyclobenzaprine [Flexeril] 10 mg PO TID #30 tab 07/24/20 [Rx] [facility]ment[facility]Ref[facility] [place] [facility] [place] [facility] Patient Instructions/Handouts: Panniculectomy (DC), Abdominal Binder (DC), Kyle-Perez Drain Care (ED) Activity/Diet/Wound Care/Special Instructions: NO lifting over 4 pounds in 4 weeks, August 22 No shower. No bathtub soaks. Record KASSIDY drain output daily and strip drains to prevent clogging. Sleep with head of bed up at 30 to 45 degrees. Walk with hips flexed to prevent tear of your incision. Dressings to be removed by your doctor in the office. EAT 75 G PROTEIN DAILY FOR OPTIMAL RECOVERY. Discharge Disposition: HOME SELF-CARE
== END 2020-07-24 15:26 | disposition home or self-care (01) ==
LOC: 2ORMAIN 12:18 → INTOOBSV 12:18 → 6PED 20:20
PROVIDERS: ADMIT Surgery Plastic and Reconstructive Surgery; ATTEND Surgery Plastic and Reconstructive Surgery
DX: M79.3 Panniculitis, unspecified (principal); K43.9 Ventral hernia without obstruction or gangrene; E66.01 Morbid (severe) obesity due to excess calories; Z68.29 Body mass index [BMI] 29.0-29.9, adult; M17.0 Bilateral primary osteoarthritis of knee; I11.9 Hypertensive heart disease without heart failure; F32.9 Major depressive disorder, single episode, unspecified; G47.33 Obstructive sleep apnea (adult) (pediatric); M79.7 Fibromyalgia; E03.9 Hypothyroidism, unspecified; K21.9 Gastro-esophageal reflux disease without esophagitis; K59.09 Other constipation; K57.90 Diverticulosis of intestine, part unspecified, without perforation or abscess without bleeding; E78.5 Hyperlipidemia, unspecified; G89.29 Other chronic pain; M54.5 Low back pain; K44.9 Diaphragmatic hernia without obstruction or gangrene; G43.909 Migraine, unspecified, not intractable, without status migrainosus; K59.00 Constipation, unspecified; F41.9 Anxiety disorder, unspecified; Z98.84 Bariatric surgery status; Z90.49 Acquired absence of other specified parts of digestive tract; Z90.710 Acquired absence of both cervix and uterus; Z20.822 Contact with and (suspected) exposure to COVID-19; Z98.890 Other specified postprocedural states; Z79.890 Hormone replacement therapy; Z79.899 Other long term (current) drug therapy; Z88.8 Allergy status to other drugs, medicaments and biological substances; Z88.5 Allergy status to narcotic agent; Z96.653 Presence of artificial knee joint, bilateral; Z99.89 Dependence on other enabling machines and devices; Z84.89 Family history of other specified conditions
CPT/HCPCS: 94760; 97161; 64999; 76942; 85025 ×2; 87635; 15830; 15847; 49560; 49568; G0379; G0378 ×2; J2250; J1100; J2710; J0690 ×2; J2405; J2001; J3010; J1650; J1170; J2795; J1885; J0330; J2704; C9113; 86850; 86900; 86901

== ENCOUNTER → 2020-07-27 | Outpatient (CLI) | payer OTHER ==
--- NOTE | 2020-07-27 12:05 | P.PN ---
Subjective Progress Note Date: 07/27/20 DATE OF SERVICE: 07/27/2020 CHIEF COMPLAINT: Panniculitis HISTORY OF PRESENT ILLNESS: Helen Ross is a 54-year-old female status post sleeve to gastric bypass, 05/30/19. She is 1 year out. She is now status post panniculectomy, 4.88 pounds 07/23/20. She is POD 3. Her pain is controlled. She is happy with her cosmetic result. At height of 5 feet 4 inches, her ideal body weight is 140 pounds. Her highest weight was 298 pounds. Her BMI was 51.3. She comes in 166 pounds from 171 pounds, 1 week ago. She has lost 5 pounds, 1 week ago. Lifetime weight loss is 132 pounds. Her lifetime percent excess weight loss is 84 %. Her body mass index is down from 51.3 to 28.5. She is 26 pounds overweight. PHYSICAL EXAM: VITAL SIGNS: Height 5 foot 4 inches, weight 166 pounds. BMI 28.5 Vital Signs Temp 98 F 07/27/20 09:03 Pulse 90 07/27/20 09:03 Resp BP 128/76 07/27/20 09:03 Pulse Ox GENERAL: Well-developed in no acute distress. HEENT: No scleral icterus. Extraocular movements grossly intact. Hears conversational speech. No nasal drainage. NECK: Supple without lymphadenopathy. CHEST: Nonlabored respirations with equal bilateral excursions. CARDIOVASCULAR: Distal 2+ pulses. ABDOMEN: Incisions are intact. All skin flaps were viable. No ischemia. External dressing discontinued. All dressings changed with ChloraPrep applied. KASSIDY serosanguineous. MUSCULOSKELETAL: No clubbing, cyanosis. NEURO: No focal or lateralizing signs. Cranial nerves 2 through 12 grossly within normal limits. PSYCH: Appropriate affect. Alert and oriented to person, place and time. SKIN: Good skin turgor. Well perfused. ASSESSMENT: 1. Morbid obesity due to excess calories 2. Body mass index 47.3 to 28.5 3. Osteoarthritis of the knees. 4. Hypertensive heart disease. 5. Depressive disorder 6. Obstructive sleep apnea, improved 7. Fibromyalgia 8. Hypothyroidism 9. Hiatal hernia 10. Gastroesophageal reflux disease 11. Diverticulosis 12. Complications of sleeve gastrectomy 13. Status post gastric bypass 14. Migraines 15. Constipation 16. Dysphagia, resolved 17. Panniculitis 18. Chronic pain 19. Status panniculectomy PLAN: 1. Follow-up in one week. Objective - Vital Signs Vital signs: Vital Signs Temp 98 F 07/27/20 09:03 Pulse 90 07/27/20 09:03 Resp BP 128/76 07/27/20 09:03 Pulse Ox Intake & Output 07/26/20 07/27/20 07/27/20 18:59 06:59 18:59 Weight 75.296 kg
== END ==
CPT/HCPCS: 99212

== ENCOUNTER → 2020-08-01 | Outpatient (CLI) | payer OTHER ==
--- NOTE | 2020-08-01 14:07 | P.PN ---
Subjective Progress Note Date: 08/01/20 DATE OF SERVICE: 08/01/2020 CHIEF COMPLAINT: Status post panniculectomy HISTORY OF PRESENT ILLNESS: Helen Ross is a 54-year-old female status post sleeve to gastric bypass, 05/30/19. She is 1 year out. She is now status post panniculectomy, 4.88 pounds 07/23/20. She is 2 weeks out. She reports knee pain. She is doing well. Outputs KASSIDY still over 30 mL daily. At height of 5 feet 4 inches, her ideal body weight is 140 pounds. Her highest weight was 298 pounds. Her BMI was 51.3. She comes in 165 pounds from 166 pound, 1 week ago. She has lost 1 pounds, 1 week ago. Lifetime weight loss is 133 pounds. Her lifetime percent excess weight loss is 84 %. Her body mass index is down from 51.3 to 28.3. She is 25 pounds overweight. PHYSICAL EXAM: VITAL SIGNS: Height 5 foot 4 inches, weight 165 pounds. BMI 28.3 Vital Signs Temp 98.4 F 08/01/20 13:19 Pulse 96 08/01/20 13:19 Resp 18 08/01/20 13:19 BP 125/81 08/01/20 13:19 Pulse Ox GENERAL: Well-developed in no acute distress. HEENT: No scleral icterus. Extraocular movements grossly intact. Hears conv ersational speech. No nasal drainage. NECK: Supple without lymphadenopathy. CHEST: Nonlabored respirations with equal bilateral excursions. CARDIOVASCULAR: Distal 2+ pulses. ABDOMEN: Incisions are intact with dressings. Skin was cleansed. No infection. KASSIDY drains are serosanguinous. MUSCULOSKELETAL: No clubbing, cyanosis. NEURO: No focal or lateralizing signs. Cranial nerves 2 through 12 grossly within normal limits. PSYCH: Appropriate affect. Alert and oriented to person, place and time. SKIN: Good skin turgor. Well perfused. ASSESSMENT: 1. Morbid obesity due to excess calories 2. Body mass index 47.3 to 28.3 3. Osteoarthritis of the knees. 4. Hypertensive heart disease. 5. Depressive disorder 6. Obstructive sleep apnea, improved 7. Fibromyalgia 8. Hypothyroidism 9. Hiatal hernia 10. Gastroesophageal reflux disease 11. Diverticulosis 12. Complications of sleeve gastrectomy 13. Status post gastric bypass 14. Migraines 15. Constipation 16. Dysphagia, resolved 17. Panniculitis 18. Chronic pain 19. Status panniculectomy PLAN: 1. Follow up in 1 week. Objective - Vital Signs Vital signs: Vital Signs Temp 98.4 F 08/01/20 13:19 Pulse 96 08/01/20 13:19 Resp 18 08/01/20 13:19 BP 125/81 08/01/20 13:19 Pulse Ox Intake & Output 07/31/20 08/01/20 08/01/20 18:59 06:59 18:59 Weight 74.843 kg
== END | disposition home or self-care (01) ==
CPT/HCPCS: 99212

== ENCOUNTER → 2020-08-15 | Outpatient (CLI) | payer OTHER ==
--- NOTE | 2020-08-15 13:33 | P.PN ---
Subjective Progress Note Date: 08/15/20 DATE OF SERVICE: 08/15/2020 CHIEF COMPLAINT: Status post panniculectomy HISTORY OF PRESENT ILLNESS: Helen Ross is a 54-year-old female status post sleeve to gastric bypass, 05/30/19. She is 1 year out. She is now status post panniculectomy, 4.88 pounds 07/23/20. She is 4 weeks out. She looks well. Her protein intake is over 65 grams daily. She is wearing a Onotryx binder. At height of 5 feet 4 inches, her ideal body weight is 144 pounds. Her highest weight was 298 pounds. Her BMI was 51.3. She comes in 166 pounds from 165 pounds, 1 week ago. She has gained 1 pound, 1 week ago. Lifetime weight loss is 131 pounds. Her lifetime percent excess weight loss is 85 %. Her body mass index is down from 51.3 to 28.7. She is 23 pounds overweight. PHYSICAL EXAM: VITAL SIGNS: Height 5 foot 4 inches, weight 167 pounds. BMI 28.7 Vital Signs Temp 98.2 F 08/15/20 13:44 Pulse 102 H 08/15/20 13:44 Resp 18 08/15/20 13:44 BP 148/87 08/15/20 13:44 Pulse Ox GENERAL: Well-developed in no acute distress. HEENT: No scleral icterus. Extraocular movements grossly intact. Hears conversational speech. No nasal drainage. NECK: Supple without lymphadenopathy. CHEST: Nonlabored respirations with equal bilateral excursions. CARDIOVASCULAR: Distal 2+ pulses. Tachycardia. ABDOMEN: No cellulitis or infection. Incisions are granulated. KASSIDY removed from left side, final drain. Has assymmetry along the left flank. MUSCULOSKELETAL: No clubbing, cyanosis. NEURO: No focal or lateralizing signs. Cranial nerves 2 through 12 grossly within normal limits. PSYCH: Appropriate affect. Alert and oriented to person, place and time. SKIN: Good skin turgor. Well perfused. ASSESSMENT: 1. Morbid obesity due to excess calories 2. Body mass index 47.3 to 28.7 3. Osteoarthritis of the knees. 4. Hypertensive heart disease. 5. Depressive disorder 6. Obstructive sleep apnea, improved 7. Fibromyalgia 8. Hypothyroidism 9. Hiatal hernia 10. Gastroesophageal reflux disease 11. Diverticulosis 12. Complications of sleeve gastrectomy 13. Status post gastric bypass 14. Migraines 15. Constipation 16. Dysphagia, resolved 17. Panniculitis 18. Chronic pain 19. Status panniculectomy PLAN: 1. KASSIDY left was removed, final drain. 2. She looks well. For mild assymmetry along the left flank, may benefit from liposuction. 3. Continue protein intake over 60 grams daily. 4. Follow up in 1 week.
[2020-08-15 13:49] VITALS: BP 148/87; PULSE 102; RESP 18; TEMP 98.2; BMI 28.6
== END ==
LOC: BARWHC3 12:51
PROVIDERS: ATTEND Surgery Plastic and Reconstructive Surgery
DX: E66.01 Morbid (severe) obesity due to excess calories (principal); E03.9 Hypothyroidism, unspecified; F32.9 Major depressive disorder, single episode, unspecified; G43.909 Migraine, unspecified, not intractable, without status migrainosus; I11.9 Hypertensive heart disease without heart failure; K21.9 Gastro-esophageal reflux disease without esophagitis; K44.9 Diaphragmatic hernia without obstruction or gangrene; K59.00 Constipation, unspecified; M17.0 Bilateral primary osteoarthritis of knee; G47.33 Obstructive sleep apnea (adult) (pediatric); M79.3 Panniculitis, unspecified; M79.7 Fibromyalgia; K57.90 Diverticulosis of intestine, part unspecified, without perforation or abscess without bleeding; K95.89 Other complications of other bariatric procedure; G89.29 Other chronic pain; Z68.28 Body mass index [BMI] 28.0-28.9, adult; Z88.5 Allergy status to narcotic agent; Z88.8 Allergy status to other drugs, medicaments and biological substances
CPT/HCPCS: 99212

== ENCOUNTER → 2020-08-29 | Outpatient (CLI) | payer OTHER ==
--- NOTE | 2020-08-29 13:44 | P.PN ---
Subjective Progress Note Date: 08/29/20 DATE OF SERVICE: 08/29/2020 CHIEF COMPLAINT: Status post panniculectomy HISTORY OF PRESENT ILLNESS: Helen Ross is a 55-year-old female status post sleeve to gastric bypass, 05/30/19. She is 1 year out. She is now status post panniculectomy, 4.88 pounds 07/23/20. She is over 1 month out. She reports no new swelling along the abdomen. She denies gastroesophageal reflux disease. She has occassional dysphagia. She reports improvement of her lower back pain with steroid injections along the back. She has lost more weight. At height of 5 feet 4 inches, her ideal body weight is 144 pounds. Her highest weight was 298 pounds. Her BMI was 51.3. She comes in 162 pounds from 166 pounds, 2 weeks ago. She has lost 5 pounds, 2 weeks. Lifetime weight loss is 136 pounds. Her lifetime percent excess weight loss is 89 %. Her body mass index is down from 51.3 to 27.8. She is 18 pounds overweight. PHYSICAL EXAM: VITAL SIGNS: Height 5 foot 4 inches, weight 162 pounds. BMI 27.4 Vital Signs Temp 98.5 F 08/29/20 13:36 Pulse 86 08/29/20 13:36 Resp BP 122/86 08/29/20 13:36 Pulse Ox GENERAL: Well-developed in no acute distress. HEENT: No scleral icterus. Extraocular movements grossly intact. Hears conversational speech. No nasal drainage. NECK: Supple without lymphadenopathy. CHEST: Nonlabored respirations with equal bilateral excursions. CARDIOVASCULAR: Distal 2+ pulses. ABDOMEN: No cellulitis or infection. Incisions are granulated. MUSCULOSKELETAL: No clubbing, cyanosis. NEURO: No focal or lateralizing signs. Cranial nerves 2 through 12 grossly within normal limits. PSYCH: Appropriate affect. Alert and oriented to person, place and time. SKIN: Good skin turgor. Well perfused. ASSESSMENT: 1. Morbid obesity due to excess calories 2. Body mass index 47.3 to 27.4 3. Osteoarthritis of the knees. 4. Hypertensive heart disease. 5. Depressive disorder 6. Obstructive sleep apnea, improved 7. Fibromyalgia 8. Hypothyroidism 9. Hiatal hernia 10. Gastroesophageal reflux disease 11. Diverticulosis 12. Complications of sleeve gastrectomy 13. Status post gastric bypass 14. Migraines 15. Constipation 16. Dysphagia, resolved 17. Panniculitis 18. Chronic pain 19. Status panniculectomy PLAN: 1. Clinically she is doing well. 2. Continue abdominal binder for 6 to 8 weeks post op. 3. Follow up yearly or sooner for issues.
[2020-08-29 14:26] VITALS: BP 122/86; PULSE 86; TEMP 98.5; BMI 27.3
== END | disposition home or self-care (01) ==
LOC: BARWHC3 12:53
PROVIDERS: ATTEND Surgery Plastic and Reconstructive Surgery
DX: Z48.817 Encounter for surgical aftercare following surgery on the skin and subcutaneous tissue (principal); E66.01 Morbid (severe) obesity due to excess calories; M17.0 Bilateral primary osteoarthritis of knee; I11.9 Hypertensive heart disease without heart failure; F32.9 Major depressive disorder, single episode, unspecified; G47.33 Obstructive sleep apnea (adult) (pediatric); M79.7 Fibromyalgia; E03.9 Hypothyroidism, unspecified; K44.9 Diaphragmatic hernia without obstruction or gangrene; K21.9 Gastro-esophageal reflux disease without esophagitis; K57.90 Diverticulosis of intestine, part unspecified, without perforation or abscess without bleeding; Z98.84 Bariatric surgery status; G43.909 Migraine, unspecified, not intractable, without status migrainosus; K59.00 Constipation, unspecified; R13.10 Dysphagia, unspecified; M79.3 Panniculitis, unspecified; G89.29 Other chronic pain; Z68.42 Body mass index [BMI] 45.0-49.9, adult
CPT/HCPCS: 99211

== ENCOUNTER → 2020-09-14 | Outpatient (CLI) | payer OTHER ==
--- NOTE | 2020-09-14 09:08 | MR ---
EXAMINATION TYPE: MR lumbar spine wo/w con DATE OF EXAM: 09/14/2020 COMPARISON: NONE HISTORY: Radiculopathy, lumbar region per order. Pt c/o leg pain for many years. TECHNIQUE: Multiplanar, multisequence images of the lumbar spine is performed without and with IV contrast, util izing 7 mL intravenous Gadavist FINDINGS: Sagittal images of the lumbar spine show vertebral body heights and alignment to appear sat isfactory. The intervertebral discs demonstrate multilevel disc desiccation. Mild to moderate disc sp mariano narrowing L4-L5 level. The conus medullaris is normal in position and signal ending at L1-L2 dis c space level. The bone marrow signal intensity is within normal limits. No suspicious postcontrast enhancement. Mild multilevel anterior spurring. Axial images show T12-L1 and L1-L2 levels to appear within normal limits. Axial images at L2-L3 at L3-L4 levels show mild facet arthropathy bilaterally. Spinal canal preserved . Bilateral neural foramina are patent at these levels. Axial images at L4-L5 level show mild/moderate right greater than left facet arthropathy bilaterally. There is mild broad-based posterior disc protrusion with annular tear minimally effacing the anterio r thecal sac. Patent bilateral neural foramina. Axial images at L5-S1 level show [id number] facet arthropathy bilaterally. No significant disc herniation. Spinal canal preserved. Patent bilateral neural foramina. Susceptibility artifact at level of the gallbladder fossa axial image 28 could reflect product of kno wn cholecystectomy. IMPRESSION: Mild multilevel degenerative changes mid to lower lumbar spine. No significant disc herni ation is seen to account for patient's radiculopathy type symptoms however.
== END | disposition home or self-care (01) ==
LOC: RADMRIMAIN 08:07
PROVIDERS: ATTEND Family Medicine
DX: M47.26 Other spondylosis with radiculopathy, lumbar region (principal); M51.16 Intervertebral disc disorders with radiculopathy, lumbar region
CPT/HCPCS: 72158; A9585

== ENCOUNTER → 2020-09-19 | Outpatient (CLI) | payer OTHER ==
[2020-09-19 09:12] VITALS: BP 127/84; PULSE 70; RESP 18; TEMP 98.5
--- NOTE | 2020-09-19 09:25 | P.PAINCN ---
History of Present Illness - Reason for Consult Consult date: 09/19/20 - History of Present Illness This is 55 years old female with a chronic history of severe neck pain and low back pain, bilateral knee pain, she reported that she has the pain for more than 10 years, intensity of the pain increased over the last few months, currently the pain in the low back area is constant and increases with any activity interfere with the quality of life and interfere with activity of daily livings, she denies any motor deficits but she is ambulating using cane, she denies any fever or night sweats, also patient complaining of severe neck pain with radiation to the other area and also radiation to the upper extremity with some numbness and tingling sensation, denies any motor or sensory deficit in the upper extremity, the pain in the cervical area is constant and increases with any movement, she tried physical therapy on multiple occasions without any significant improvement of her pain, and she tried medication management without any significant improvement of her pain she is currently on Flexeril 10 mg 3 times a day, Tylenol 1,000 mg when necessary C times a day she denies any side effect of the medication Past Medical History Past Medical History: Fibromyalgia, GERD/Reflux, Hyperlipidemia, Hypertension, Osteoarthritis (OA), Sleep Apnea/CPAP/BIPAP, Thyroid Disorder Additional Past Medical History / Comment(s): HIATAL HERNIA, PREV HX OF HTN-HAS HAD WT LOSS SO NO LONGER ON MEDICATION, uses CPAP History of Any Multi-Drug Resistant Organisms: None Reported Past Surgical History: Appendectomy, Bariatric Surgery, Breast Surgery, Section, Cholecystectomy, Heart Catheterization, Hysterectomy, Joint Replacement, Orthopedic Surgery Additional Past Surgical History / Comment(s): lewis knee arthroplasty. lewis knee MANIPULATION, REVISION OF TOTAL RT KNEE, D&C. LEFT BREAST BIOSPIES x 2, Sleeve gastrectomy, bunionectomy left foot, Gastric Bypass 05/30/19, EGD, COLONOSCOPY. left knee revision 05/16/2020 panniculectomy 07-23-20 Past Anesthesia/Blood Transfusion Reactions: Previous Problems w/ Anesthesia, Motion Sickness, Postoperative Nausea & Vomiting (PONV) Additional Past Anesthesia/Blood Transfusion Reaction / Comm: STATES SHE STOPPED BREATHING DURING SURGERY FOR TOTAL KNEE REPLACEMENT(@[facility] 04/2014) DUE TO SLEEP APNEA Smoking Status: Never smoker - Past Family History Mother Family Medical History: No Reported History Additional Family Medical History / Comment(s): . Medications and Allergies Home Medications Medication Instructions Recorded Confirmed Type Levothyroxine Sodium [Synthroid] 25 mcg PO QAM 09/22/14 08/29/20 History DULoxetine HCL [Cymbalta] 60 mg PO BID 06/12/15 08/29/20 History lamoTRIgine [LaMICtal] 200 mg PO BID 06/02/18 08/29/20 History traZODone HCL 100 mg PO HS 01/07/19 08/29/20 History Omeprazole [PriLOSEC] 40 mg PO BID #28 cap 10/13/19 08/29/20 Rx Acetaminophen Tab [Tylenol Tab] 1,000 mg PO Q6HR PRN #30 tablet 07/24/20 08/29/20 Rx Cyclobenzaprine [Flexeril] 10 mg PO TID #30 tab 07/24/20 08/29/20 Rx Allergies Allergy/AdvReac Type Severity Reaction Status Date / Time morphine AdvReac Itching Verified 08/29/20 16:35 [id number] Reductase AdvReac muscle Verified 08/29/20 16:35 Inhibitor aches Physical Exam Vitals: Vital Signs Temp Pulse Resp BP Pulse Ox 09/19/20 09:05 98.5 F 70 18 127/84 98 Intake and Output 09/18/20 09/19/20 09/19/20 22:59 06:59 14:59 Other: Weight 73.028 kg Physical Examinations : -Constitutiona : Cooperative , not in acute distress . -HEENT : nech : supple , no Lymphadenopathy , normal thyroid size . : eyes : no ptosis , no icterus, no photophobia . - neurologic : Cranial nerve II to XII intact , no focal neurological deffecit . -psychatric : alert , oriented X 3 , appropriate affect , intact judgment and insight . -Lymphatic : no Lymphadenopathy . - musculoskeltal : Cervical Spine motor stregnth in the deltoid and biceps, normal right side , normal Left side motor stregnth biceps and the wrist extensors normal right side ,normal left side . motor stregnth in the triceps muscle . normal Right side , normal Left side deep tendon reflexes normal at the biceps , normal at Brachioradialis , normal at triceps. cervical facet loading test: Positive Bilaterally Spurling test= positive Right , positive left. Neck distraction test= positive Right , positive left. Vanesa sign= positive right, positive left . Lumber spine moter stegnth lower extremities ,thigh and legs 5/5 Right side , 5/5 Left side deep tendon reflexes : normal Knee Jerk , normal ankle Jerk lumber facet Loading Test =positive Right , positive Left Range of motion of the lumbar spine Flexion 30 degrees, extension 10 degrees strait leg raising test = positive at 30 degree left side and is negative on the right side Fabere test= positive Right , and positive LT . tenderness over the Sacroiliac joint on the Right , and Left sides Knee exam: She extension of the left knee is associated with severe pain Results Comments: MRI of the cervical spine= C3 4 C4 5, C5 6, C6 7, foraminal narrowing cervical spondylolisthesis, cervical degenerative disc disease and cervical facet arthropathy I of the lumbar spine multilevel lumbar degenerative disc disease multilevel lumbar facet arthropathy Assessment and Plan Plan: Assessment and plan=1-lumbar spondylosis and lumbar facet arthropathy. 2-lumbar degenerative disc disease. 3-cervical foraminal stenosis. 4-cervical spondylosis with cervical facet arthropathy. 5-cervical spondylolisthesis Patient will be scheduled to have diagnostic medial branch block lumbar area L3, L4, L5 bilaterally Time with Patient: Greater than 30 PQRS Measure Charge Sheet Measure #130: Documentation of Current Meds in Medical Chart: Patient's medications documented in chart Measure #226: Tobacco Use: Screen & Cessation Intervention: Pt not a tobacco user Measure #111: Pneumonia Vaccination: Pneumococcal vaccine NOT administered or previously given Measure #47: Advance Care Plan: Advance care planning discussed & documented, pt chose/unable to give Measure #412: Opioid Treatment Agreement: No documentation of signed opioid treatment agreement Measure #408: Opioid Therapy Follow-up Evaluation: Patient had NO f/u eval minimum every 3 months during opioid therapy Measure #317: Preventitive Care & Scrn High Bld Press & F/U: Normal blood pressure, f/u not required Measure #128: Body Mass Index (BMI) Screening & Follow-up: BMI documented ABOVE normal parameters - f/u documented Measure #131: Pain Assessment & Follow-up: Pain positive & plan documented, Follow-up scheduled Measure #431: Unhealthy Alcohol Use Preventative Care & Scrn: Patient not identified as an unhealthy alcohol user PQRS Narrative: Smoking Status Never smoker Blood Pressure 127/84 Pain Intensity [Lower Back] 8 Scale Used Numeric (1 - 10) Home Medications: Ambulatory Orders Levothyroxine Sodium [Synthroid] 25 mcg PO QAM 09/22/14 DULoxetine HCL [Cymbalta] 60 mg PO BID 06/12/15 lamoTRIgine [LaMICtal] 200 mg PO BID 06/02/18 traZODone HCL 100 mg PO HS 01/07/19 Omeprazole [PriLOSEC] 40 mg PO BID #28 cap 10/13/19 Acetaminophen Tab [Tylenol Tab] 1,000 mg PO Q6HR PRN #30 tablet 07/24/20 Cyclobenzaprine [Flexeril] 10 mg PO TID #30 tab 07/24/20
== END | disposition home or self-care (01) ==
LOC: PNWHC3 08:32
PROVIDERS: ATTEND Specialist
DX: M48.02 Spinal stenosis, cervical region (principal); M43.12 Spondylolisthesis, cervical region; M50.30 Other cervical disc degeneration, unspecified cervical region; M51.36 Other intervertebral disc degeneration, lumbar region; M47.26 Other spondylosis with radiculopathy, lumbar region; M47.812 Spondylosis without myelopathy or radiculopathy, cervical region; M46.92 Unspecified inflammatory spondylopathy, cervical region; M46.96 Unspecified inflammatory spondylopathy, lumbar region; M79.7 Fibromyalgia; K21.9 Gastro-esophageal reflux disease without esophagitis; E07.9 Disorder of thyroid, unspecified; G47.30 Sleep apnea, unspecified; I10 Essential (primary) hypertension; Z79.899 Other long term (current) drug therapy; Z88.8 Allergy status to other drugs, medicaments and biological substances; Z88.5 Allergy status to narcotic agent
CPT/HCPCS: 99211

== ENCOUNTER 2020-10-02 11:55 | Day surgery (SDC) | payer OTHER ==
[2020-09-27 15:06] VITALS: BMI 27.4
[~2020-10-02 11:55] MED LIST changes: -ACETAMINOPHEN TAB 500 MG TAB PO PRN; -GABAPENTIN 300 MG CAP PO PRN; +LACTATED RINGERS 1,000 ML IV SCH; -LIDOCAINE 1% (10MG/ML) FOR IV START INTRADERMA PRN; -MIDAZOLAM 2 MG/2 ML VIAL IV PRN; -ONDANSETRON 4 MG/2 ML VIAL IVP ONE
[2020-10-02 12:36] VITALS: RESP 16; TEMP 98.3
[2020-10-02] MEDS ORDERED: LIDOCAINE 1% (10MG/ML) FOR IV START INTRADERMA ONE (12:36)
[2020-10-02] MEDS ORDERED: methylPREDNISolone ACETATE 40 MG/ML 1 ML VIAL ONE (12:45)
[2020-10-02] MEDS ORDERED: ROPIVACAINE 5MG/ML 20ML VIAL ONE (12:45)
[2020-10-02] MEDS ORDERED: MIDAZOLAM 2 MG/2 ML VIAL ONE (12:45)
[2020-10-02] MEDS ORDERED: fentaNYL (PF) 50 MCG/ML 2 ML AMP ONE (12:45)
--- NOTE | 2020-10-02 13:03 | P.PCN ---
Date of Procedure: 10/02/20 Procedure(s) Performed: PREOPERATIVE DIAGNOSIS : 1- Lumbar spondylosis with Facet Arthropathy without myelopathy . POSTOPERATIVE DIAGNOSIS: 1- Lumbar spondylosis with Facet Arthropathy without myelopathy . PROCEDURE: Diagnostic bilateral L3 , L4 , and L5 medial branch block under fluoroscopy guidance(fluoroscopy images available in the radiology Department ) ( To target the facet joint between bilateral L4-5 , and L5-S1 ) #1st ANESTHESIA:, moderate sedation with intravenous Versed 2 mg and Fentanyl 100 mcg. EBL: Minimal COMPLICATION: None PROCEDURE INDICATION: Chronic low back pain secondary to Facet arthropathy unre sponsive to conservative treatment. PROCEDURE DESCRIPTION: the patient was seen and identified in the preop holding area , risks and benefits and possible complications of the procedure and altern ative were discussed with the patient, and the patient agreed to proceed with the procedure and signed the consent and vital signs monitored during the procedure and fluoroscopy was used to maximize the benefit and accuracy of the needle placement, and sedation was given to decrease patient anxiety, patient was taken to the procedure room and placed in prone position vital signs monitored in the back prepped with chlorhexidine X3 then under strict sterile technique using a right oblique fluoroscopy ,the junction of the transverse process and the superior articulating process of the right L3 , L4 , and L5 vertebra which corresponding to the fluoroscopy image of the eye of the Marco dog on the block side for the medial branches and subsequently , after local infiltration of skin and subcu tissuies with Ropivacaine 0.5 % , one mL at each level ,then 22-gauge Quincke-type needles , 3 needle was used , each one of them placed at the junction of the base of the transverse process and the superior articular process at the appropriate level, and the needle was advanced until the periosteum contacted, needle placement confirmed with AP oblique and lateral view and after appropriate needle placement confirmed, and after negative aspiration for heme and CSF and there was no paresthesia 1-1/2 mL of Ropivacaine 0.5% mixed with 20 mg Depo-Medrol , then half mL injected at each level after negative aspiration the needle subsequently removed and the same procedure repeated for the left side at left side at L3 , L4 and L5 levels. At the end of the procedure and the needles removed and a bandage applied after the skin was cleaned the cleaning solution patient taken to recovery room in stable condition and monitors in the recovery room for 20-30 minutes and disch arged home in stable condition after discharge criteria met and patient will follow up with the pain clinic in 2-4 weeks
[2020-10-02] MEDS ORDERED: IV FLUID CONTINUATION 700 ML IV ONE (13:05)
--- NOTE | 2020-10-02 13:12 | FL ---
EXAMINATION TYPE: FL guided pain mgmt statistic DATE OF EXAM: 10/02/2020 HISTORY: Fluoroscopy time 9 seconds of fluoroscopy provided. IMPRESSION: 1. Fluoroscopy time.
[2020-10-02 13:24] VITALS: BP 112/70; PULSE 78
== END 2020-10-02 13:37 | disposition home or self-care (01) ==
LOC: ORPAIN 11:55
PROVIDERS: ATTEND Specialist
DX: G89.29 Other chronic pain (principal); M47.816 Spondylosis without myelopathy or radiculopathy, lumbar region; Z88.5 Allergy status to narcotic agent; Z88.8 Allergy status to other drugs, medicaments and biological substances
CPT/HCPCS: 64493; 64494; J2250; J1030; J3010; J2795; 99152

== ENCOUNTER 2020-10-23 06:55 | Day surgery (SDC) | payer OTHER ==
[2020-10-22 09:50] VITALS: BMI 27.4
[2020-10-23 07:20] VITALS: TEMP 98
[2020-10-23] MEDS ORDERED: LACTATED RINGERS 1,000 ML IV ONE (07:29)
[2020-10-23] MEDS ORDERED: ROPIVACAINE 5MG/ML 20ML VIAL ONE (08:07)
[2020-10-23] MEDS ORDERED: fentaNYL (PF) 50 MCG/ML 2 ML AMP ONE (08:07)
[2020-10-23] MEDS ORDERED: MIDAZOLAM 2 MG/2 ML VIAL ONE (08:07)
[2020-10-23] MEDS ORDERED: TRIAMCINOLONE ACETONIDE 40 MG/ML 1 ML VIAL ONE (08:07)
[2020-10-23] MEDS ORDERED: IV FLUID CONTINUATION 1,000 ML IV ONE ×2 (08:30)
[2020-10-23 08:38] VITALS: RESP 18
--- NOTE | 2020-10-23 08:40 | P.PCN ---
Description of Procedure: PREOPERATIVE DIAGNOSIS : 1- Lumbar spondylosis with Facet Arthropathy without myelopathy . POSTOPERATIVE DIAGNOSIS: 1- Lumbar spondylosis with Facet Arthropathy without myelopathy . PROCEDURE: Diagnostic bilateral L3 , L4 , and L5 medial branch block under fluoroscopy guidance 2 of 2 ANESTHESIA:, moderate sedation with intravenous Versed 2 mg and 100 mcq of fentanyl EBL: Minimal COMPLICATION: None PROCEDURE INDICATION: Chronic low back pain secondary to Facet arthropathy unresponsive to conservative treatment. Patient responded favorably to initial diagnostic block with >80% relief for >2 days. PROCEDURE DESCRIPTION: the patient was seen and identified in the preop holding area , risks and benefits and possible complications of the procedure and alternative were discussed with the patient, and the patient agreed to proceed with the procedure and signed the consent and vital signs monitored during the procedure and fluoroscopy was used to maximize the benefit and accuracy of the needle placement, and sedation was given to decrease patient anxiety, patient was taken to the procedure room and placed in prone position vital signs monitored in the back prepped with chlorhexidine X3 then under strict sterile technique using a right oblique fluoroscopy ,the junction of the transverse process and the superior articulating process of the right L3 , L4 , and L5 vertebra which corresponding to the fluoroscopy image of the eye of the Marco dog on the block side for the medial branches and subsequently , after local infiltration of skin and subcu tissuies with Ropivacaine 0.5 % , one mL at each level ,then 22-gauge Quincke-type needles , 3 needle was used , each one of them placed at the junction of the base of the transverse process and the superior articular process at the appropriate level, and the needle was advanced until the periosteum contacted, needle placement confirmed with AP oblique and lateral view and after appropriate needle placement confirmed, and after negative aspiration for heme and CSF and there was no paresthesia 1-1/2 mL of Ropivacaine 0.5% mixed with 20 mg Depo- Medrol , then half mL injected at each level after negative aspiration the needle subsequently removed and the same procedure repeated for the left side at left side at L3 , L4 and L5 levels. At the end of the procedure and the needles removed and a bandage applied after the skin was cleaned the cleaning solution patient taken to recovery room in stable condition and monitors in the recovery room for 20-30 minutes and discharged home in stable condition after discharge criteria met and patient will follow up with the pain clinic in 2-4 weeks
[2020-10-23 08:51] VITALS: BP 134/85; PULSE 72
--- NOTE | 2020-10-23 13:01 | FL ---
Fluoroscopy HISTORY: Pain 28 seconds fluoroscopy time supplied to the referring clinician. 4 intraoperative C-arm images docum ent the procedure. See dictated report from anesthesia.
== END 2020-10-23 09:02 | disposition home or self-care (01) ==
LOC: ORPAIN 06:55
PROVIDERS: ATTEND Anesthesiology
DX: M47.816 Spondylosis without myelopathy or radiculopathy, lumbar region (principal); G89.29 Other chronic pain
CPT/HCPCS: 64493; 64494; 76000; J2250; J3301; J3010; J2795; 99152

== ENCOUNTER → 2020-11-19 | Outpatient (CLI) | payer OTHER ==
[2020-11-19 13:01] VITALS: BP 145/99; PULSE 80; RESP 18; TEMP 98
--- NOTE | 2020-11-19 13:13 | P.PN ---
Subjective Progress Note Date: 11/19/20 This is follow up visit for this 55 years old female with a chronic history of severe neck pain and low back pain, bilateral knee pain, she is diagnosed with lumbar spondylosis with lumbar facet arthropathy and lumbar degenerative disc disease, and cervical degenerative disc disease and cervical spondylosis with cervical facet arthropathy and cervical foraminal stenosis, recently we did diagnostic medial branch block lumbar area and she reported that she had 50% improvement of her low back pain after the first block and she'll get 0 benefit after the second diagnostic medial branch block, she reported that her neck pain currently is more severe than her low back pain, intensity of the pain increased over the last few months, currently the pain is constant and increases with any activity interfere with the quality of life and interfere with activity of daily livings, she denies any motor deficits but she is ambulating using cane, she denies any fever or night sweats, also patient complaining of severe neck pain with radiation to the other area and also radiation to the upper extremity with some numbness and tingling sensation, denies any motor or sensory deficit in the upper extremity, the pain in the cervical area is constant and increases with any movement, she tried physical therapy on multiple occasions without any significant improvement of her pain, and she tried medication management without any significant improvement of her pain she is currently on Flexeril 10 mg 3 times a day, Tylenol 1,000 mg when necessary C times a day she denies any side effect of the medication -Constitutiona : Cooperative , not in acute distress . -HEENT : nech : supple , no Lymphadenopathy , normal thyroid size . : eyes : no ptosis , no icterus, no photophobia . - neurologic : Cranial nerve II to XII intact , no focal neurological deffecit . -psychatric : alert , oriented X 3 , appropriate affect , intact judgment and insight . -Lymphatic : no Lymphadenopathy . - musculoskeltal : Cervical Spine motor stregnth in the deltoid and biceps, normal right side , normal Left side motor stregnth biceps and the wrist extensors normal right side ,normal left side . motor stregnth in the triceps muscle . normal Right side , normal Left side deep tendon reflexes normal at the biceps , normal at Brachioradialis , normal at triceps. cervical facet loading test: Positive Bilaterally Spurling test= positive Right , positive left. Neck distraction test= positive Right , positive left. Vanesa sign= positive right, positive left . Lumber spine moter stegnth lower extremities ,thigh and legs 5/5 Right side , 5/5 Left side deep tendon reflexes : normal Knee Jerk , normal ankle Jerk lumber facet Loading Test =positive Right , positive Left Range of motion of the lumbar spine Flexion 30 degrees, extension 10 degrees strait leg raising test = positive at 30 degree left side and is negative on the right side Fabere test= positive Right , and positive LT . tenderness over the Sacroiliac joint on the Right , and Left sides Knee exam: She extension of the left knee is associated with severe pain Results MRI of the cervical spine= C3 4 C4 5, C5 6, C6 7, foraminal narrowing cervical spondylolisthesis, cervical degenerative disc disease and cervical facet arthropathy MRI of the lumbar spine= multilevel lumbar degenerative disc disease multilevel lumbar facet arthropathy Assessment and Plan Plan: Assessment and plan=1-lumbar spondylosis and lumbar facet arthropathy. 2-lumbar degenerative disc disease. 3-cervical foraminal stenosis. 4-cervical spondylosis with cervical facet arthropathy. 5-cervical spondylolisthesis Patient had no benefit from diagnostic medial branch block lumbar area, and she reported that most of her pain in the neck area Patient will be scheduled to have diagnostic medial branch block cervical area C3, C4, C5 bilaterally - PQRS measures = - Patient's medications are documented in the chart. -Tobacco use is negative and counseling.Given. -Patient's has not received pneumococcal vaccine. -Advanced care planning discussed, patient not eligible. -Opiate contract not signed. -Pain positive and follow-up visit/procedure is scheduled. -Patient's blood pressure measured [ 145/99 ] , and documented in the record ,and patient will follow up with the primary care. -Patient's weight was measured and body mass index [ 28 ] above the, normal limits and counseling was done. and patient instructed to follow-up with the primary care physician. -Patient was not identified as an unhealthy alcohol user Objective - Vital Signs Vital signs: Vital Signs Temp 98.0 F 11/19/20 12:47 Pulse 80 11/19/20 12:47 Resp 18 11/19/20 12:47 BP 145/99 11/19/20 12:47 Pulse Ox 97 11/19/20 12:47
== END | disposition home or self-care (01) ==
LOC: PNWHC3 12:33
PROVIDERS: ATTEND Specialist
DX: M50.123 Cervical disc disorder at C6-C7 level with radiculopathy (principal); M51.36 Other intervertebral disc degeneration, lumbar region; M47.896 Other spondylosis, lumbar region; M46.92 Unspecified inflammatory spondylopathy, cervical region; M46.96 Unspecified inflammatory spondylopathy, lumbar region; M43.12 Spondylolisthesis, cervical region
CPT/HCPCS: 99211

== ENCOUNTER 2020-12-18 11:02 | Day surgery (SDC) | payer OTHER ==
[2020-12-13 14:27] VITALS: BMI 28.3
[2020-12-18 11:32] VITALS: TEMP 98.9
[2020-12-18] MEDS ORDERED: MIDAZOLAM 2 MG/2 ML VIAL ONE (11:52)
[2020-12-18] MEDS ORDERED: DEXAMETHASONE SOD PHOSPHATE 10 MG/ML 1 ML VIAL ONE (11:52)
[2020-12-18] MEDS ORDERED: fentaNYL (PF) 50 MCG/ML 2 ML AMP ONE (11:52)
[2020-12-18] MEDS ORDERED: ROPIVACAINE 5MG/ML 20ML VIAL ONE (11:52)
[2020-12-18] MEDS ORDERED: IV FLUID CONTINUATION 500 ML IV ONE (12:22)
--- NOTE | 2020-12-18 12:25 | P.PCN ---
Date of Procedure: 12/18/20 Procedure(s) Performed: Bilateral cervical medial branch block for levels C3, C4, and C5 under fluoroscopic guidance Surgeon: Lien Hernandez Pathology: none sent Condition: stable Disposition: PACU Description of Procedure: ANESTHESIA: Local with 1% lidocaine; IV sedation with 3 mg of Versed and 100 g of fentanyl. EBL: Minimal PROCEDURE INDICATION: The patient with neck pain secondary to cervical arthropathy unresponsive to more conservative treatments. PROCEDURE DESCRIPTION / TECHNIQUE: The patient was seen and identified in the preoperative area. Risks, benefits, complications, and alternatives were discussed with the patient, the patient agreed to proceed with the procedure and signed the consent. IV was started. Vital signs remained stable throughout the procedure. Patient was taken to the OR and time out was completed. The patient was placed in the supine position on the procedure table. . The cervical area was prepped with chloraprep and draped in the usual sterile fashion. Critical pause was taken. Vital signs were closely monitored during the procedure. Conscious sedation was used during the procedure to decrease patients anxiety. Using cross-table lateral fluoroscopy, the centers of the trapezoid of C3,C4, and C5 were identified, marked, and localized with 1% lidocaine 1 ml at each level for skin and Sub Q infiltrations . Subsequently, a 25 G 3.5 inch spinal needle was advanced guided by fluoroscopy to the target points mentioned above. Subsequently, 3 ml of preservative-free Ropivacaine 0.5% mixed with Dexamethasone 10 mg and half ml of the mixture was injected at each level after negative aspiration for blood and CSF. [place] were then removed intact the same procedure was repeated ont the left side in the same manner. COMPLICATIONS: No acute complications. COMMENTS: DISPOSITION / PLANS: The patient was placed in a supine position and transferred to the recovery area in a stable condition for observation and was discharged from the recovery room after meeting discharge criteria. Home discharge instructions given to the patient by the staff. The patient was reexamined prior to discharge.
[2020-12-18 12:32] VITALS: RESP 16
--- NOTE | 2020-12-18 12:34 | FL ---
EXAMINATION TYPE: FL guided pain mgmt statistic DATE OF EXAM: 12/18/2020 HISTORY: Fluoroscopy time 11 seconds of fluoroscopy provided. IMPRESSION: 1. Fluoroscopy time.
[2020-12-18 12:47] VITALS: BP 131/78; PULSE 80
== END 2020-12-18 13:00 | disposition home or self-care (01) ==
LOC: ORPAIN 11:02
PROVIDERS: ATTEND Anesthesiology
DX: M47.812 Spondylosis without myelopathy or radiculopathy, cervical region (principal)
CPT/HCPCS: 64490; 64491; J2250; J1100; J3010; J2795; 99152

== ENCOUNTER 2021-01-11 12:02 | Day surgery (SDC) | payer OTHER ==
[2021-01-10 11:09] VITALS: BMI 29.2
[2021-01-11 12:25] VITALS: RESP 16; TEMP 97.8
[2021-01-11] MEDS ORDERED: LIDOCAINE 1% (10MG/ML) FOR IV START INTRADERMA ONE (12:32)
[2021-01-11] MEDS ORDERED: MIDAZOLAM 2 MG/2 ML VIAL ONE (13:24)
[2021-01-11] MEDS ORDERED: DEXAMETHASONE SOD PHOSPHATE 10 MG/ML 1 ML VIAL ONE (13:24)
[2021-01-11] MEDS ORDERED: fentaNYL (PF) 50 MCG/ML 2 ML AMP ONE (13:24)
[2021-01-11] MEDS ORDERED: ROPIVACAINE 5MG/ML 20ML VIAL ONE (13:24)
--- NOTE | 2021-01-11 13:51 | P.PCN ---
Date of Procedure: 01/11/21 Description of Procedure: Procedure(s) Performed: Bilateral cervical medial branch block for levels C3, C4, and C5 under fluoroscopic guidance Surgeon: Lien Hernandez Pathology: none sent Condition: stable Disposition: PACU Description of Procedure: ANESTHESIA: Local with 1% lidocaine; IV moderate conscious sedation by the anesthesia Department EBL: Minimal PROCEDURE INDICATION: The patient with neck pain secondary to cervical arthropathy unresponsive to more conservative treatments. PROCEDURE DESCRIPTION / TECHNIQUE: The patient was seen and identified in the preoperative area. Risks, benefits, complications, and alternatives were discussed with the patient, the patient agreed to proceed with the procedure and signed the consent. IV was started. Vital signs remained stable throughout the procedure. Patient was taken to the OR and time out was completed. The patient was placed in the supine position on the procedure table. . The cervical area was prepped w ith chloraprep and draped in the usual sterile fashion. Critical pause was taken. Vital signs were closely monitored during the procedure. Conscious sedation was used during the procedure to decrease patients anxiety. Using cross-table lateral fluoroscopy, the centers of the trapezoid of C3,C4, and C5 were identified, marked, and localized with 1% lidocaine 1 ml at each level for skin and Sub Q infiltrations . Subsequently, a 25 G 3.5 inch spinal needle was advanced guided by fluoroscopy to the target points mentioned above. Subsequently, 3 ml of preservative-free Ropivacaine 0.5% mixed with Dexamethasone 10 mg and half ml of the mixture was injected at each level after negative aspiration for blood and CSF. [place] were then removed intact the same procedure was repeated ont the left side in the same manner. COMPLICATIONS: No acute complications. COMMENTS: DISPOSITION / PLANS: The patient was placed in a supine position and transferred to the recovery area in a stable condition for observation and was discharged from the recovery room after meeting discharge criteria. Home discharge instructions given to the patient by the staff. The patient was reexamined prior to discharge.
[2021-01-11] MEDS ORDERED: IV FLUID CONTINUATION 1,000 ML IV ONE (13:56)
[2021-01-11 14:13] VITALS: BP 121/70; PULSE 81
--- NOTE | 2021-01-11 15:53 | FL ---
Fluoroscopy HISTORY: Pain 10 seconds fluoroscopy time supplied to the referring clinician. 7 intraoperative C-arm images docum ent the procedure. See dictated report from anesthesia.
== END 2021-01-11 14:26 | disposition home or self-care (01) ==
LOC: ORPAIN 12:02
PROVIDERS: ATTEND Anesthesiology
DX: M47.812 Spondylosis without myelopathy or radiculopathy, cervical region (principal); Z88.8 Allergy status to other drugs, medicaments and biological substances; Z88.5 Allergy status to narcotic agent; K21.9 Gastro-esophageal reflux disease without esophagitis
CPT/HCPCS: 64490; 64491; J2250; J1100; J3010; J2795

== ENCOUNTER → 2021-01-21 | Outpatient (CLI) | payer OTHER ==
--- NOTE | 2021-01-23 08:00 | MM ---
Reason for exam: screening (asymptomatic). Last mammogram was performed 1 year ago. History: Patient is postmenopausal. Family history of breast cancer in paternal aunt at age 70. Benign excisional biopsy of the left breast, 2013. Benign excisional biopsy of the left breast, 2007. Took estrogen for 1 year. Took progesterone for 1 year. Physical Findings: A clinical breast exam by your physician is recommended on an annual basis and results should be correlated with mammographic findings. MG 3D Screening Mammo W/Cad Bilateral CC and MLO view(s) were taken. Prior study comparison: January 20, 2020, bilateral MG 3d screening mammo w/cad. January 17, 2019, bilateral MG 3d screening mammo w/cad. January 14, 2018, bilateral MG 3d screening mammo w/cad. The breast tissue is heterogeneously dense. This may lower the sensitivity of mammography. No significant changes when compared with prior studies. ASSESSMENT: Benign, BI-RAD 2 RECOMMENDATION: Routine screening mammogram of both breasts in 1 year. Patient should continue monthly self breast exams. A negative report should not preclude additional follow up of suspicious palpable abnormalities.
== END | disposition home or self-care (01) ==
LOC: RADMAMWWP 13:33
PROVIDERS: ATTEND Family Medicine
DX: Z12.31 Encounter for screening mammogram for malignant neoplasm of breast (principal)
CPT/HCPCS: 77063; 77067

== ENCOUNTER → 2021-01-30 | Outpatient (CLI) | payer OTHER ==
[2021-01-30 13:41] VITALS: BP 132/85; PULSE 71; RESP 18; TEMP 97.6
--- NOTE | 2021-01-30 13:59 | P.PN ---
Subjective Progress Note Date: 01/30/21 Principal diagnosis: Cervical spondylosis and arthropathy without myelopathy Helen is a 55-year-old female presented to clinic today for follow-up appointment after her second cervical medial branch block on 01/11/2021. For about 3-4 days after the procedure she felt 100% pain relief after the intervention and was able to perform her daily activities without pain. However over time her pain has returned. She describes the pain as a dull aching sensation that increased with excessive sitting and standing. Pain is made better with rest and hxpz-aae-lesiudy medications. She is currently reporting muscle spasms in her trapezius that decreases her range of motion with rotation. She like to move forward with the radiofrequency ablation at C E3, C4, and C5. Objective - Vital Signs Vital signs: Vital Signs Temp 97.6 F 01/30/21 13:37 Pulse 71 01/30/21 13:37 Resp 18 01/30/21 13:37 BP 132/85 01/30/21 13:37 Pulse Ox 98 01/30/21 13:37 Intake & Output 01/29/21 01/30/21 01/30/21 18:59 06:59 18:59 Weight 79.379 kg - Exam Physical Examinations : -Constitutiona : Cooperative , not in acute distress . -HEENT : nech : supple , no Lymphadenopathy , normal thyroid size . : eyes : no ptosis , no icterus, no photophobia . - neurologic : Cranial nerve II to XII intact , no focal neurological deffecit . -psychatric : alert , oriented X 3 , appropriate affect , intact judgment and insight . -Lymphatic : no Lymphadenopathy . - musculoskeltal : Cervical Spine motor stregnth in the deltoid and biceps, normal right side , normal Left side motor stregnth biceps and the wrist extensors normal right side ,normal left side . motor stregnth in the triceps muscle . normal Right side , normal Left side deep tendon reflexes normal at the biceps , normal at Brachioradialis , normal at triceps. cervical facet loading test: Positive Bilaterally Spurling test= negative Neck distraction test= negative Vanesa sign= negative Cervical paraspinal muscles tender to palpation; trapezius muscles bilateral spasm Assessment and Plan Assessment: Assessment: Cervical spondylosis and arthropathy without myelopathy Plan: Schedule patient for radiofrequency ablation at C3, C4, and C5 - PQRS measures = - Patient's medications are documented in the chart. -Tobacco use is negative -Patient's has not received pneumococcal vaccine. -Advanced care planning discussed, patient not eligible. -Opiate contract not signed. -Pain positive and follow-up visit/procedure is scheduled. -Patient's blood pressure measured [ 132/85 ] , and documented in the record ,and patient will follow up with the primary care. -Patient's weight was measured and body mass index within the normal limits and counseling was done. and patient instructed to follow-up with the primary care physician. -Patient was not identified as an unhealthy alcohol user Time with Patient: Less than 30
== END | disposition home or self-care (01) ==
LOC: PNWHC3 12:58
PROVIDERS: ATTEND Student in an Organized Health Care Education/Training Program
DX: M47.892 Other spondylosis, cervical region (principal)
CPT/HCPCS: 99211

== ENCOUNTER → 2021-03-05 | Outpatient (CLI) | payer OTHER ==
[2021-03-05 14:26] LABS: Basophils # (A) 0.05 X 10*3/uL (0.00-0.10); Basophils % (A) 1.1 %; Eosinophils # (A) 0.18 X 10*3/uL (0.04-0.35); HCT 38.9 % (37.2-46.3); Lymphocytes # (A) 1.29 X 10*3/uL (0.90-5.00); Lymphocytes % (A) 28.7 %; MCH 29.4 pg (27.0-32.0); MCHC 33.4 g/dL (32.0-37.0); Mean Platelet Volume 10.8 fL (9.5-12.2); Monocytes # (A) 0.31 X 10*3/uL (0.20-1.00); Monocytes % (A) 6.9 %; Neutrophils # (A) 2.65 X 10*3/uL (1.80-7.70); Neutrophils % (A) 58.9 %; Platelet Count 195 X 10*3/uL (140-440); RBC 4.42 X 10*6/uL (4.10-5.20)
[2021-03-05 16:09] LABS: ALT 33 U/L (8-44); AST 31 U/L (13-35); African American GFR (CKD) 106.7 (60.0-200.0); Albumin 4.7 g/dL (3.8-4.9); Albumin/Globulin Ratio 2.08 (1.60-3.17); Alkaline Phosphatase 116 U/L (41-126); Blood Urea Nitrogen 7.9 mg/dL (9.0-27.0); Calcium 9.6 mg/dL (8.7-10.3); Carbon Dioxide 27.5 mmol/L (20.0-27.5); Chloride 102 mmol/L (96-109); Chol/HDL Ratio 2.89 Ratio; Globulin 2.3 g/dL (1.6-3.3); Glucose 88 mg/dL (70-110); LDL Cholesterol,Calculated 119.2 mg/dL (0.0-131.0); Potassium 4.8 mmol/L (3.5-5.5); Sodium 142 mmol/L (135-145); Total Protein 6.9 g/dL (6.2-8.2)
== END | disposition home or self-care (01) ==
LOC: LABWHC1 09:38
PROVIDERS: ATTEND Family Medicine
DX: Z00.00 Encounter for general adult medical examination without abnormal findings (principal); E03.9 Hypothyroidism, unspecified
CPT/HCPCS: 36415; 80053; 80061; 83036; 84439; 84443; 85025

== ENCOUNTER 2021-03-08 11:02 | Day surgery (SDC) | payer OTHER ==
[2021-03-06 18:11] VITALS: BMI 30.5
[2021-03-08 11:30] VITALS: TEMP 98.3
[2021-03-08] MEDS ORDERED: LIDOCAINE 1% (10MG/ML) FOR IV START INTRADERMA ONE ×2 (11:41→11:42)
[2021-03-08] MEDS: LACTATED RINGERS 1,000 ML IV SCH ×2 (11:45→12:11)
[2021-03-08] MEDS ORDERED: TRIAMCINOLONE ACETONIDE 40 MG/ML 1 ML VIAL ONE (12:13)
[2021-03-08] MEDS ORDERED: ROPIVACAINE 5MG/ML 20ML VIAL ONE (12:13)
[2021-03-08] MEDS ORDERED: .fentaNYL (PF) 50 MCG/ML 2 ML AMP ONE (12:13)
[2021-03-08] MEDS ORDERED: MIDAZOLAM 2 MG/2 ML VIAL ONE ×2 (12:13)
--- NOTE | 2021-03-08 13:01 | FL ---
EXAMINATION TYPE: FL guided pain mgmt statistic DATE OF EXAM: 03/08/2021 HISTORY: Fluoroscopy time 31 seconds of fluoroscopy provided. IMPRESSION: 1. Fluoroscopy time.
[2021-03-08] MEDS ORDERED: IV FLUID CONTINUATION 800 ML IV ONE (13:02)
--- NOTE | 2021-03-08 13:13 | P.PCN ---
Date of Procedure: 03/08/21 Procedure(s) Performed: PREOPERATIVE DIAGNOSIS: Cervical spondylosis with Facet Arthropathy without myelopathy. POSTOPERATIVE DIAGNOSIS: Cervical spondylosis with Facet Arthropathy without myelopathy. PROCEDURES: Radiofrequency thermocoagulation, Bilateral C3, C4, C5, medial branch with Fluroscopy [place](fluoroscopy was available in etiology department ) (to denervate the facet joint at Bilateral C3- 4 , C4- 5 ) ANESTHESIA: monitered anesthesia care ,as per anesthesia department. EBL: Minimal PROCEDURE INDICATION: The patient with neck pain secondary to cervical arthropathy who had more than 50% relief of her pain with previous diagnostic cervical medial branch block. PROCEDURE DESCRIPTION / TECHNIQUE: The patient was seen and identified in the preoperative area. Risks, benefits, complications, and alternatives were discussed with the patient, the patient agreed to proceed with the procedure and signed the consent. IV was started. Vital signs remained stable throughout the procedure. Patient was taken to the OR and time out was completed. The patient was placed in the prone position on the procedure table. A pillow was placed under the patients chest to increase the cervical interlaminar space. The cervical area was prepped and draped in the usual sterile fashion. Critical pause was taken. Vital signs were closely monitored during the procedure. Conscious sedation was used during the procedure to decrease patients anxiety. Using cross-table lateral fluoroscopy, the centroid of the trapezoid of Right C3, C4, C5, were identified, marked, and localized with 1% lidocaine. Subsequently, a 20 -cz radiofrequency cannula with a 10-mm active tip was advanced guided by fluoroscopy to the centroid of the trapezoid of Right C3, C4, C5 . Needle tip position was confirmed at the centroid of the trapezoids of Right C3, C4, C5, with anteroposterior fluoroscopy. Each site then underwent sensory testing at 50 Hz and 0 to 1 volt and motor testing at 2 Hz and 0 to 3 volt with local stimulation, but no radicular symptoms down the arm. Thereafter each sites underwent radiofrequency thermocoagulation at 80 degrees celsius for 90 seconds after injecting 0.5 ml of PF Ropivacaine 0.5 %. After thermocoagulation, 1 ml of the block solution containing Kenalog 20 mg and 5 mL of preservative-free normal saline was injected at the Right C3, C4, C5, levels after negative aspiration of CSF and blood and with no paresthesias. C annulas were retracted while injecting lidocaine 1% until the needle is out. Then the exact same procedure was repeated for the left side at C3, C4 , C5 then at the end of the procedure the Skin was cleansed and bandages were applied. COMPLICATIONS: No acute complications. DISPOSITION / PLANS: The patient was placed in a supine position and transferred to the recovery area in a stable condition for observation and was discharged from the recovery room after meeting discharge criteria. Home discharge instructions given to the patient by the staff. The patient was reexamined prior to discharge. The patient will schedule a follow up in the clinic in 2-4 weeks.
[2021-03-08 13:28] VITALS: RESP 16
[2021-03-08 13:33] VITALS: BP 120/77; PULSE 82
== END 2021-03-08 13:58 | disposition home or self-care (01) ==
LOC: ORPAIN 11:02
PROVIDERS: ATTEND Specialist
DX: M47.812 Spondylosis without myelopathy or radiculopathy, cervical region (principal)
CPT/HCPCS: 64633; 64634; J2250; J3301; J3010; J2795

== ENCOUNTER → 2021-04-17 | Outpatient (CLI) | payer OTHER ==
[2021-04-17 11:22] VITALS: BP 132/90; PULSE 79; RESP 18
--- NOTE | 2021-04-17 11:59 | P.PN ---
Subjective Progress Note Date: 04/17/21 Principal diagnosis: A 55 yr old female with a history of severe and chronic neck pain secondary to cervical degenerative disc diseases with facet arthropathy presents today for a follow up for a recent RFA. Pt states she experienced no pain relief with the procedure. She admits she found substantial pain relief with the Medial Branch Blocks. She still feels 9 /10 pain which is localized to her mid and lower neck. Pain is dull/ achy in character and can also be sharp/ shooting depending on activity. Pain radiates towards her left hand, especially her ring, middle and index fingers. Pain is provoked by driving, lifting, positioning or other movements. Pain is alleviated with medications, rest, physical therapy with massage and a home based stretching program. Interventional pain procedures completed include Cervical MBBs and Cerivcal RFA (03/08/21) Patient is currently on Tylenol, Mobic, Gabapentin Patient denies any side effects of the medication(s), denies excessive drowsiness or sleepiness, denies suicidal ideation and reports that the current pain medication is helping to control the pain and improve activities of daily living. Patient denies any motor or sensory deficits. Patient denies any fever or night sweats, denies any change in the bowel movements or urination. Physical Examination: -Constitutional: Cooperative. Not in acute distress . -HEENT: Neck is supple. No lymphadenopathy. No thyromegaly. Normal thyroid size. Eyes: No ptosis , no icterus, no photophobia. ENT: No auditory deficits. Normal oropharynx. No Thrush. - Respiratory: Chest clear to auscultations bilaterally. No wheezing. No rhonchi. - Cardiovascular: Regular rate and rhythm. S1 / S2 , no S3 , no S4. - Gastrointestinal: Abdomen soft no tenderness. Bowel sounds positive in all four quadrants. No organomegaly. - Genitourinary: Deferred. - Neurologic: Cranial nerve II to XII intact. No focal neurological deficits. - Psychatric: Alert & oriented x 3. Matching mood & appropriate affect. Judgment and insight intact. - Lymphatic: No Lymphadenopathy. - Musculoskeletal: Cervical spine: Muscle bulk/ tone/ strength in the bilateral upper extremities normal Full cervical flexion, extension, rotation and lateral flexion Facet loading test cervical area positive in C3-C5 bilaterally Distraction test positive Lumbar spine: Motor bulk/ tone/ strength lower extremities , thigh and legs : 5/5 Deep tendon reflexes : Normal Knee Jerk. Normal Ankle Jerk . Lumbar Facet Loading Test positive Straight Leg Raise: positive at 30 degree right side/ left side [place] test: positive right side / left side Range of motion: Range of motion in flexion of the lumbar spine <60 degrees Range of motion: Extension of the lumbar spine <20 degrees Severe tenderness over the Sacroiliac joint: right side / left side Assessment and plan: Chronic low back pain secondary to cervical degenerative disc disease with facet arthropathy without myelopathy Recommendation of additional Cervical MBB of BL C3- C5 as pt found significant pain relief with the procedure Pt may be suffering pain more so from facet arthropathy and neuroforaminal stenoses than impingement/ encroachment of the nerve roots Chronic and current use of high-risk medication (Opioids). The patient was counseled about risk of opioid use, psychological risk associated with opioids and was orally counseled to not overuse , divert or sell medications. Pt is to store medication in a safe location. The patient is counseled against driving while using narcotic medications and also not to use alcohol or any illicit recreational drugs. Patient verbalized understanding that the lack of compliance will result in failure to renew narcotic prescription(s) as well as possible discharge from the clinic Diagnoses, prognosis and treatment options including but not limited to physical therapy, surgical interventions, interventional therapies and medication management including narcotics and adjuvant medication were discussed. All patient questions answered MAPS reviewed and it was appropriate. Prescription refill for Robaxin 500mg BID prn spasms #60 with 1 refill I have spent 31 minutes on patient care today. Dr Hodgson was available by phone for the evaluation of this patient. The time was used to review the medical records including relevant urine studies and Prescription history (MAPs), review of the available imaging, evaluation and examination of the patient, coordination of care with the medical staff and if applicable referring physicians, as well as creation of the medical record Objective - Vital Signs Vital signs: Vital Signs Temp Pulse 79 04/17/21 11:15 Resp 18 04/17/21 11:15 BP 132/90 04/17/21 11:15 Pulse Ox 97 04/17/21 11:15 PQRS Measure Charge Sheet Mode of Arrival: Ambulatory - Pain Location Neck Non-Pharmacological Interventions: Heat, Ice, Inactivity, Position/Reposition, Stretching Pharmacological Interventions: PRN Medication PQRS Narrative: Smoking Status Never smoker Blood Pressure 132/90 Pain Intensity [Neck] 10 Scale Used Numeric (1 - 10) Home Medications: Ambulatory Orders Levothyroxine Sodium [Synthroid] 25 mcg PO QAM 09/22/14 DULoxetine HCL [Cymbalta] 60 mg PO BID 06/12/15 lamoTRIgine [LaMICtal] 100 mg PO BID 06/02/18 traZODone HCL 100 mg PO HS 01/07/19 Acetaminophen Tab [Tylenol Tab] 1,000 mg PO Q6HR PRN #30 tablet 07/24/20 Gabapentin 300 mg PO TID 01/10/21 Meloxicam 15 mg PO DAILY 01/10/21 Omeprazole [PriLOSEC] 40 mg PO BID PRN 03/27/21
== END | disposition home or self-care (01) ==
LOC: PNWHC3 10:27
PROVIDERS: ATTEND Physician Assistant Medical
DX: M54.16 Radiculopathy, lumbar region (principal); M54.50 Low back pain, unspecified; G89.29 Other chronic pain
CPT/HCPCS: 99211

== ENCOUNTER 2021-05-24 12:34 | Day surgery (SDC) | payer OTHER ==
[2021-05-22 16:33] VITALS: BMI 30.9
[2021-05-24 12:56] VITALS: TEMP 98.4
[2021-05-24] MEDS ORDERED: LIDOCAINE 1% (10MG/ML) FOR IV START SQ ONE (13:11)
[2021-05-24] MEDS ORDERED: MIDAZOLAM 2 MG/2 ML VIAL IVP ONE (14:02)
[2021-05-24] MEDS ORDERED: methylPREDNISolone ACETATE 40 MG/ML 1 ML VIAL ONE (14:06)
[2021-05-24] MEDS ORDERED: ROPIVACAINE 5MG/ML 20ML VIAL ONE (14:06)
[2021-05-24] MEDS ORDERED: IV FLUID CONTINUATION 650 ML IV ONE (14:30)
--- NOTE | 2021-05-24 14:37 | P.PCN ---
Date of Procedure: 05/24/21 Procedure(s) Performed: Procedure= interposed injection cervical paraspinal muscles bilaterally, trapezius muscles bilaterally, rhomboid muscles bilaterally Total of 7 trigger point injected on the right side cervical area, and 7 trigger point in the left side cervical area. Preoperative diagnosis= 1-myofascial pain syndrome cervical area. 2-cervical spondylosis with cervical facet arthropathy. 3-cervical degenerative disc disease. 4-cervical foraminal stenosis. Postoperative diagnosis=Same as preop Diagnosis . Complication = none Condition= stable Anesthesia= none Description and indication of the procedure= this is 55 years old female with a chronic history of severe neck pain, patient diagnosed with a diagnosis mentioned above, the summer we have done RFA of the medial branch cervical area at C3, C4, and C5, bilaterally, and recently patient was evaluated in the office and she is scheduled to have it is branch block bilaterally, the preop holding area exam showed patient had multiple, and extensive myofascial pain in the cervical paraspinal muscles and rhomboid and trapezius muscles, for this reason and discussed with the patient the option of doing, trigger point injection which will be more helpful, and patient later will be seen in the office to evaluate her response to the injection today and then if she needs to have pain then will consider doing cervical epidural steroid injection and trigger point injection, procedure risks and benefits and alternatives discussed with the patient she agreed with proceeding, taken to the procedure room monitors applied , then we marked the targeted muscles, total of 14 trigger point identified, 7 in the right side and 7 on the left side cervical paraspinals trapezius and rhomboid muscles bilaterally, total of 28 mL of ropivacaine 0.5%, mixed with 40 mg of Depo-Medrol, and 2 mL of the mixture was injected at each trigger point, injection done using 25-gauge needle and injec tion them after negative aspiration and there was no paresthesia during the injection, patient tolerated the procedure well without any complications, patient will be seen in the pain clinic in within a few weeks, for medication refill and we will evaluate her response to the injection today , if she continued to have pain then it will be warranted to consider repeat trigger point injection and cervical epidural steroid injection, she tolerated the procedure well without any complications, and she discharged home in stable condition
[2021-05-24 14:47] VITALS: RESP 20
[2021-05-24 14:52] VITALS: BP 126/81; PULSE 70
== END 2021-05-24 15:00 | disposition home or self-care (01) ==
LOC: ORPAIN 12:34
PROVIDERS: ATTEND Specialist
DX: M79.18 Myalgia, other site (principal); M47.812 Spondylosis without myelopathy or radiculopathy, cervical region; M50.30 Other cervical disc degeneration, unspecified cervical region; M48.02 Spinal stenosis, cervical region; Z88.5 Allergy status to narcotic agent; Z88.8 Allergy status to other drugs, medicaments and biological substances
CPT/HCPCS: 20553; J2250; J1030; J2795

== ENCOUNTER → 2021-06-12 | Outpatient (CLI) | payer OTHER ==
--- NOTE | 2021-06-12 11:36 | P.PN ---
Subjective Progress Note Date: 06/12/21 Principal diagnosis: A 56 yr old female with a history of severe and chronic neck pain secondary to vehicle degenerative disc diseases and spondylosis with facet arthropathy presents today for evaluation status post TPI of the cervical spine. He shouldn't she experienced 85% pain relief for 2 weeks status post procedure. Pain level in the cervical spine is currently at 910 in intensity, deep, sharp, stabbing sensation that radiates left and right of midline to the paraspinal muscles bilaterally. Pain is provoked by lifting, driving, sitting or standing for periods of 30 minutes or more or "essentially any movement." Pain is alleviated with medications, topicals, heat but only while it's on, physical therapy in the past, massage, repositioning and rest. Interventional pain procedures completed include ineffective bilateral RFA of C4-C5, C5-C6 Patient is currently on Robaxin from this clinic Patient denies any side effects of the medication(s), denies excessive drowsiness or sleepiness, denies suicidal ideation and reports that the current pain medication is helping to control the pain and improve activities of daily living. Patient denies any motor or sensory deficits. Patient denies any fever or night sweats, denies any change in the bowel movements or urination. Physical Examination: -Constitutional: Cooperative. Not in acute distress . -HEENT: Neck is supple. No lymphadenopathy. No thyromegaly. Normal thyroid size. Eyes: No ptosis , no icterus, no photophobia. ENT: No auditory deficits. Normal oropharynx. No Thrush. - Respiratory: Chest clear to auscultations bilaterally. No wheezing. No rhonchi. - Cardiovascular: Regular rate and rhythm. S1 / S2 , no S3 , no S4. - Gastrointestinal: Abdomen soft no tenderness. Bowel sounds positive in all four quadrants. No organomegaly. - Genitourinary: Deferred. - Neurologic: Cranial nerve II to XII intact. No focal neurological deficits. - Psychatric: Alert & oriented x 3. Matching mood & appropriate affect. Judgment and insight intact. - Lymphatic: No Lymphadenopathy. - Musculoskeletal: Cervical spine: Muscle bulk/ tone/ strength in the bilateral upper extremities normal. Facet loading test cervical area positive over C2 to T1 bilaterally with accompanying muscle spasms Lumbar spine: Motor bulk/ tone/ strength lower extremities , thigh and legs : 5/5 Deep tendon reflexes : Normal Knee Jerk. Normal Ankle Jerk . Vertebral body tenderness to palpation over Lumbar Facet Loading Test positive Straight Leg Raise: positive at 30 degrees right side/ left side Gaenslen's Test positive Sacral spine : Severe tenderness over the Sacroiliac joint: right side / left side Range of motion: Flexion of the lumbar spine <60 degrees Range of motion: Extension of the lumbar spine <20 degrees Gaenslen's Test positive Norman test: positive right side / left side Assessment and plan: Chronic low back pain secondary to lumbar degenerative disc disease , lumbar spondylosis with facet arthropathy without myelopathy Recommendation of TPI cervical spine in 7 areas bilaterally. Risks, benefits of procedure discussed patient verbalized understanding. Denies anticoagulant use. Denies medical history diabetes mellitus. Referral to Dr. Ray regarding cervical spine pain. All patient questions answered MAPS reviewed and it was appropriate. Prescription for Flexeril 5 mg #60 with 1 refill. Discontinue Robaxin. I have spent 31 minutes on patient care today. Dr Hodgson was available by phone for the evaluation of this patient. The time was used to review the medical records including relevant urine studies and Prescription history (MAPs), review of the available imaging, evaluation and examination of the patient, coordination of care with the medical staff and if applicable referring physicians, as well as creation of the medical record Objective - Vital Signs Vital signs: Intake & Output 06/11/21 06/12/21 06/12/21 18:59 06:59 18:59 Weight 81.647 kg PQRS Measure Charge Sheet Mode of Arrival: Ambulatory - Pain Location Neck Non-Pharmacological Interventions: Heat, Home Exercise, Ice, Meditation, Position/Reposition Pharmacological Interventions: PRN Medication PQRS Narrative: Smoking Status Never smoker Pain Intensity [Neck] 9 Scale Used Numeric (1 - 10) Home Medications: Ambulatory Orders Levothyroxine Sodium [Synthroid] 25 mcg PO QAM 09/22/14 DULoxetine HCL [Cymbalta] 60 mg PO BID 06/12/15 lamoTRIgine [LaMICtal] 200 mg PO BID 06/02/18 traZODone HCL 100 mg PO HS 01/07/19 Gabapentin 300 mg PO TID 01/10/21 Meloxicam 15 mg PO DAILY 01/10/21 Omeprazole [PriLOSEC] 40 mg PO BID PRN 03/27/21 methocarbamoL [Robaxin] 500 mg PO BID PRN 30 Days #60 tab 04/17/21 Propranolol [Inderal] 10 mg PO DIRECTED PRN 05/22/21
[2021-06-12 11:38] VITALS: BP 149/95; PULSE 76; RESP 18; TEMP 98.2
== END | disposition home or self-care (01) ==
LOC: PNWHC3 10:44
PROVIDERS: ATTEND Physician Assistant Medical
DX: M47.896 Other spondylosis, lumbar region (principal); M51.36 Other intervertebral disc degeneration, lumbar region
CPT/HCPCS: 99211

== ENCOUNTER → 2021-07-18 | Outpatient (CLI) | payer OTHER ==
[~2021-07-18] MED LIST changes: +DOBUTamine DRIP for NUC MED 500 MG in DEXTROSE/WATER 1 250ML.BAG IV PRN; -LACTATED RINGERS 1,000 ML IV SCH
--- NOTE | 2021-07-18 12:40 | ECHOF ---
Referral Reason:I51.7 MEASUREMENTS -------- HEIGHT: 162.6 cm WEIGHT: 81.7 kg BP: RVIDd: 2.5 cm (< 3.3) IVSd: 1.4 cm (0.6 - 1.1) LVIDd: 3.6 cm (3.9 - 5.3) LVPWd: 1.5 cm (0.6 - 1.1) IVSs: 2.0 cm LVIDs: 1.8 cm LVPWs: 1.4 cm LAESV Index (A-L): 29.28 ml/m Ao Diam: 2.7 cm (2.0 - 3.7) AV Cusp: 1.9 cm (1.5 - 2.6) LA Diam: 3.7 cm (2.7 - 3.8) MV E Nicholas: 0.71 m/s MV DecT: 202 ms MV A Nicholas: 0.95 m/s MV E/A Ratio: 0.75 RAP: 5.00 mmHg RVSP: 34.16 mmHg FINDINGS -------- Sinus rhythm. This was a technically adequate study. The left ventricular size is normal. There is moderate concentric left ventricular hypertrophy. O verall left ventricular systolic function is normal with, an EF between 55 - 60 %. The diastolic fi lling pattern is normal for the age of the patient 11.53. The right ventricle is normal in size. Normal LA size by volume 22+/-6 ml/m2. The right atrial size is normal. Interatrial and interventricular septum intact. There is no evidence of aortic regurgitation. There is no evidence of aortic stenosis. There is trace mitral regurgitation. Mild tricuspid regurgitation present. There is borderline pulmonary artery hypertension. The righ t ventricular systolic pressure, as measured by Doppler, is 34.16mmHg. Trace/mild (physiologic) pulmonic regurgitation. The aortic root size is normal. Normal inferior vena cava with normal inspiratory collapse consistent with estimated right atrial pre ssure of 5 mmHg. There is no pericardial effusion. CONCLUSIONS -------- 1. The left ventricular size is normal. 2. There is moderate concentric left ventricular hypertrophy. 3. Overall left ventricular systolic function is normal with, an EF between 55 - 60 %. 4. The diastolic filling pattern is normal for the age of the patient 11.53 5. There is trace mitral regurgitation. 6. Mild tricuspid regurgitation present. 7. There is borderline pulmonary artery hypertension. 8. The right ventricular systolic pressure, as measured by Doppler, is 34.16mmHg. 9. Trace/mild (physiologic) pulmonic regurgitation. FOLDER STITCHER OPERATOR: Marilee Cuevas RDCS
--- NOTE | 2021-07-18 15:06 | P.STRESS ---
- Stress Test Note Stress Test Results/Findings: Exam Performed: dobutamine stress echo Exam Date: 07/18/21 Reason for Exam: chest pain Height: 5 ft 4 in Weight: 180 kg Protocol: Dobutamine stress echo Stage: IV Duration of Exercise: 10:35 Resting Heart Rate: 65 Resting Blood Pressure: 120/76 Maximum Achieved Heart Rate: 140 Maximum Achieved Blood Pressure: 163/59 85% PMHR: 139 100% PMHR: 163 METS: Technologist Comment: Stress Test Results/Findings: Patient underwent dobutamine stress echo with infusion of dobutamine into Stage 4 for a total of 10 minutes and 35 seconds. Patient's maximum heart rate was 140 which represented 85% age-predicted maximum heart rate. Stress EKG portion: At baseline patient's EKG showed normal sinus rhythm, normal axis, no significant ST or T-wave abnormalities. At peak dobutamine infusion, EKG showed nonspecific [address] depressions in the inferior and lateral leads which are nonspecific with dobutamine infusion. Stress echo portion: 2-D echocardiogram was performed in the parasternal long, personal short, apical 2 and apical four-chamber views at rest, low-dose, peak infusion and in [facility]. At baseline, echocardiogram showed left ventricular ejection fraction 55% without wall motion abnormalities. With peak infusion, echocardiogram shows improvement in left ventricular ejection fraction, increase contractility, decrease in left ventricular end systolic dimension without wall motion abnormalities consistent with a normal response to dobutamine. Conclusions: 1. Equivocal stress EKG portion with 1mm ST depressions in the inferior and lateral leads which may be seen with dobutamine infusion and is nonspecific. 2. Normal stress echo response to dobutamine infusion without any evidence of inducible ischemia. 3. Normal EF 55%.
--- NOTE | 2021-07-19 09:16 | ECHOS ---
Stress Test Results/Findings: Exam Performed: dobutamine stress echo Exam Date: 07/18/21 Reason for Exam: chest pain Height: 5 ft 4 in Weight: 180 kg Protocol: Dobutamine stress echo Stage: IV Duration of Exercise: 10:35 Resting Heart Rate: 65 Resting Blood Pressure: 120/76 Maximum Achieved Heart Rate: 140 Maximum Achieved Blood Pressure: 163/59 85% PMHR: 139 100% PMHR: 163 METS: Technologist Comment: Stress Test Results/Findings: Patient underwent dobutamine stress echo with infusion of dobutamine into Stage 4 for a total of 10 minutes and 35 seconds. Patient's maximum heart rate was 140 which represented 85% age-predicted maximum heart rate. Stress EKG portion: At baseline patient's EKG showed normal sinus rhythm, normal axis, no significant ST or T-wave abnormalities. At peak dobutamine infusion, EKG showed nonspecific [address] depressions in the inferior and lateral leads which are nonspecific with dobutamine infusion. Stress echo portion: 2-D echocardiogram was performed in the parasternal long, personal short, apical 2 and apical four-chamber views at rest, low-dose, peak infusion and in recovery. At baseline, echocardiogram showed left ventricular ejection fraction 55% without wall motion abnormalities. With peak infusion, echocardiogram shows improvement in left ventricular ejection fraction, increase contractility, decrease in left ventricular end systolic dimension without wall motion abnormalities consistent with a normal response to dobutamine. Conclusions: 1. Equivocal stress EKG portion with 1mm ST depressions in the inferior and lateral leads which may be seen with dobutamine infusion and is nonspecific. 2. Normal stress echo response to dobutamine infusion without any evidence of inducible ischemia. 3. Normal EF 55%. MTDD
== END | disposition home or self-care (01) ==
LOC: RADNMMAIN 08:59
PROVIDERS: ATTEND Family Medicine
DX: I51.7 Cardiomegaly (principal)
CPT/HCPCS: 93306; 93351

== ENCOUNTER 2021-07-23 10:03 | Day surgery (SDC) | payer OTHER ==
[2021-07-23] MEDS ORDERED: LACTATED RINGERS 1,000 ML IV SCH (10:16)
[2021-07-23] MEDS ORDERED: LIDOCAINE 1% (10MG/ML) FOR IV START INTRADERMA PRN (10:16)
[2021-07-23 10:24] VITALS: RESP 16; TEMP 97.3
[2021-07-23] MEDS ORDERED: fentaNYL (PF) 50 MCG/ML 2 ML AMP ONE (10:33)
[2021-07-23] MEDS ORDERED: methylPREDNISolone ACETATE 40 MG/ML 1 ML VIAL ONE (10:33)
[2021-07-23] MEDS ORDERED: ROPIVACAINE 5MG/ML 20ML VIAL ONE (10:33)
[2021-07-23] MEDS ORDERED: MIDAZOLAM 2 MG/2 ML VIAL ONE (10:33)
--- NOTE | 2021-07-23 10:57 | P.PCN ---
Date of Procedure: 07/23/21 Procedure(s) Performed: Procedure= Trigger points injection cervical paraspinal muscles bilaterally, trapezius muscles bilaterally, rhomboid muscles bilaterally Total of 7 trigger point injected on the right side cervical area, and 7 trigger point in the left side cervical area. Preoperative diagnosis= 1-myofascial pain syndrome cervical area. 2-cervical spondylosis with cervical facet arthropathy. 3-cervical degenerative disc disease. 4-cervical foraminal stenosis. Postoperative diagnosis=Same as preop Diagnosis . Complication = none Condition= stable Anesthesia=moderate sedations with versed 2 mg ,and Fentanyle 100 mcg . Description and indication of the procedure= this is 55 years old female with a chronic history of severe neck pain, patient diagnosed with a diagnosis mentioned above,in the preop holding area exam showed patient had multiple, and extensive myofascial pain in the cervical paraspinal muscles and rhomboid and trapezius muscles, for this reason,and discussed with the patient the option of doing, trigger point injection which will be more helpful, and patient later will be seen in the office to evaluate her response to the injection today and then if she needs to have pain then will consider doing cervical epidural steroid injection and trigger point injection, procedure risks and benefits and alternatives discussed with the patient she agreed with proceeding, taken to the procedure room monitors applied , then we marked the targeted muscles, total of 14 trigger point identified, 7 in the right side and 7 on the left side cervical paraspinals trapezius and rhomboid muscles bilaterally, total of 28 mL of ropivacaine 0.5%, mixed with 40 mg of Depo-Medrol, and 2 mL of the mixture was injected at each trigger point, injection done using 25-gauge needle and injection them after negative aspiration and there was no paresthesia during the injection, patient tolerated the procedure well without any complications, patient will be seen in the pain clinic in within a few weeks, for medication refill and we will evaluate her response to the injection today , if she continued to have pain then it will be warranted to consider repeat trigger point injection and cervical epidural steroid injection, she tolerated the procedure well without any complications, and she discharged home in stable condition
[2021-07-23] MEDS ORDERED: IV FLUID CONTINUATION 1,000 ML IV ONE (11:01)
[2021-07-23 11:29] VITALS: BP 119/71; PULSE 74
== END 2021-07-23 11:40 | disposition home or self-care (01) ==
LOC: ORPAIN 10:03
PROVIDERS: ATTEND Specialist
DX: M79.18 Myalgia, other site (principal); M47.812 Spondylosis without myelopathy or radiculopathy, cervical region; M50.30 Other cervical disc degeneration, unspecified cervical region; M48.02 Spinal stenosis, cervical region
CPT/HCPCS: 20553; J2250; J1030; J3010; J2795

== ENCOUNTER → 2022-02-28 | Outpatient (CLI) | payer OTHER ==
--- NOTE | 2022-03-03 17:08 | MM ---
Reason for Exam: Screening (asymptomatic). Last mammogram was performed 1 year(s) and 1 month(s) ago. Patient History: Menarche at age 10. First Full-Term at age 25. Left ovary removed at age 43. Right ovary removed at age 43. Hysterectomy at age 43. Postmenopausal. Patient used Estrogen for 1 year. Patient used Progesterone for 1 year. 2013, Benign Excisional Biopsy on the left side. 2007, Benign Excisional Biopsy on the left side. Paternal aunt had breast cancer, age 70. Risk Values: Ina 5 year model risk: 2.2%. NCI Lifetime model risk: 12.5%. Prior Study Comparison: 01/17/2019 Bilateral Screening Mammogram, [facility]. 01/20/2020 Bilateral Screening Mammogram, [facility]. 01/21/2021 Bilateral Screening Mammogram, [facility]. Tissue Density: The breast tissue is heterogeneously dense. This may lower the sensitivity of mammography. Findings: Analyzed By CAD. There are a few scattered benign-appearing calcifications present. Focal asymmetry is in the subareolar right breast is stable from comparison No suspicious groups of microcalcifications, spiculated or lobular masses, architectural distortion or other secondary signs of malignancy are mammographically apparent. Overall Assessment: Benign, BI-RAD 2 Management: Screening Mammogram of both breasts in 1 year. A negative mammogram report should not preclude additional follow up of suspicious palpable abnormalities. Patient should continue monthly self breast exam. A clinical breast exam by your physician is recommended on an annual basis and results should be correlated with mammographic findings. Electronically signed and approved by: Delbert Edwards D.O. Radiologis
== END | disposition home or self-care (01) ==
LOC: RADMAMWWP 12:27
PROVIDERS: ATTEND Family Medicine
DX: Z12.31 Encounter for screening mammogram for malignant neoplasm of breast (principal); Z78.0 Asymptomatic menopausal state; Z80.3 Family history of malignant neoplasm of breast; Z98.890 Other specified postprocedural states
CPT/HCPCS: 77063; 77067

== ENCOUNTER → 2023-03-02 | Outpatient (CLI) | payer OTHER ==
--- NOTE | 2023-03-03 12:17 | MM ---
Reason for Exam: Screening (asymptomatic). Last screening mammogram was performed 12 month(s) ago. Patient History: Menarche at age 10. First Full-Term at age 25. Left ovary removed at age 43. Right ovary removed at age 43. Hysterectomy at age 43. Postmenopausal. Patient used Progesterone for 1 year. 2013, Benign Excisional Biopsy on the left side. 2007, Benign Excisional Biopsy on the left side. Paternal aunt had breast cancer, age 70. Risk Values: Ina 5 year model risk: 2.3%. NCI Lifetime model risk: 12.2%. Prior Study Comparison: 01/20/2020 Bilateral Screening Mammogram, [facility]. 01/21/2021 Bilateral Screening Mammogram, [facility]. 02/28/2022 Bilateral MG 3D screening mammo w/cad, [facility]. Tissue Density: The breast tissue is heterogeneously dense. This may lower the sensitivity of mammography. Findings: Analyzed By CAD. Retroareolar spiculated density left breast. Additional views recommended of the left breast. No suspicious calcifications are not within either breast. No right breast mass seen. Overall Assessment: Incomplete: need additional imaging evaluation, BI-RAD 0 Management: Diagnostic Mammogram of the left breast. . Patient should continue monthly self-breast exams. A clinical breast exam by your physician is recommended on an annual basis. This exam should not preclude additional follow-up of suspicious palpable abnormalities. Note on Ina scores and lifetime risk: 1. A Ina score greater than 3% is considered moderate risk. If this is the case, consider specialist referral to assess eligibility for a risk reducing agent. 2. If overall lifetime risk for the development of breast cancer is 20% or higher, the patient may qualify for future screening with alternating mammogram and breast MRI. Electronically signed and approved by: Justin Singh M.D. Radiologis
== END | disposition home or self-care (01) ==
LOC: RADMAMWWP 11:27
PROVIDERS: ATTEND Family Medicine
DX: Z12.31 Encounter for screening mammogram for malignant neoplasm of breast (principal); Z78.0 Asymptomatic menopausal state; Z80.3 Family history of malignant neoplasm of breast
CPT/HCPCS: 77063; 77067

== ENCOUNTER → 2023-03-10 | Outpatient (CLI) | payer OTHER ==
--- NOTE | 2023-03-10 18:51 | MM ---
Reason for Exam: Additional evaluation requested from abnormal screening. Last screening mammogram was performed less than 1 month ago. Patient History: Menarche at age 10. First Full-Term at age 25. Left ovary removed at age 43. Right ovary removed at age 43. Hysterectomy at age 43. Postmenopausal. Patient used Progesterone for 1 year. 2013, Benign Excisional Biopsy on the left side. 2007, Benign Excisional Biopsy on the left side. Paternal aunt had breast cancer, age 70. Risk Values: Ina 5 year model risk: 2.3%. NCI Lifetime model risk: 12.2%. Prior Study Comparison: 01/21/2021 Bilateral Screening Mammogram, [facility]. 02/28/2022 Bilateral MG 3D screening mammo w/cad, [facility]. 03/02/2023 Bilateral MG 3D screening mammo w/cad, [facility]. Tissue Density: Left: The breast tissue is heterogeneously dense. This may lower the sensitivity of mammography. Findings: Analyzed By CAD. The questionable area of distortion in the subareolar left breast becomes less defined on additional views. We note additional history off previous excisions on the left. Findings most likely on a surgical basis. Precautionary six-month follow-up recommended. Overall Assessment: Probably benign, BI-RAD 3 Management: Diagnostic Mammogram of the left breast in 6 months. . Results were given to the patient verbally at the time of exam. Patient should continue monthly self-breast exams. A clinical breast exam by your physician is recommended on an annual basis. This exam should not preclude additional follow-up of suspicious palpable abnormalities. Note on Ina scores and lifetime risk: 1. A Ina score greater than 3% is considered moderate risk. If this is the case, consider specialist referral to assess eligibility for a risk reducing agent. 2. If overall lifetime risk for the development of breast cancer is 20% or higher, the patient may qualify for future screening with alternating mammogram and breast MRI. Electronically signed and approved by: Gris Perry M.D. Radiologist
== END | disposition home or self-care (01) ==
LOC: RADMAMWWP 13:31
PROVIDERS: ATTEND Family Medicine
DX: R92.332 Mammographic heterogeneous density, left breast (principal); Z78.0 Asymptomatic menopausal state; Z80.3 Family history of malignant neoplasm of breast
CPT/HCPCS: 77065; G0279; 77061

== ENCOUNTER → 2023-04-21 | Outpatient (CLI) | payer OTHER ==
--- NOTE | 2023-04-21 13:06 | US ---
EXAMINATION TYPE: US kidneys/renal and bladder DATE OF EXAM: 04/21/2023 COMPARISON: NONE CLINICAL INDICATION: Female, 57 years old with history of R10.9 UNSPECIFIED ABDOMINAL PAIN; Lt flank pain for 6 months, no urinary issues or hematuria EXAM MEASUREMENTS: Right Kidney: 11.5 x 5.5 x 4.8 cm Left Kidney: 12.2 x 4.7 x 5.1 cm Right Kidney: No hydronephrosis or masses seen Left Kidney: No hydronephrosis or masses seen Bladder: wnl There is no evidence for hydronephrosis at this point in time. No nephrolithiasis is seen. No jos s are identified. The urinary bladder is anechoic. Bilateral ureteral jets are seen. IMPRESSION: No evidence for obstructive uropathy.
== END | disposition home or self-care (01) ==
LOC: RADUSWWP 11:59
PROVIDERS: ATTEND Family Medicine
DX: R10.9 Unspecified abdominal pain (principal)
CPT/HCPCS: 76770

== ENCOUNTER → 2024-07-08 | Outpatient (CLI) | payer OTHER ==
--- NOTE | 2024-07-08 11:12 | MM ---
Reason for Exam: Additional evaluation requested from prior study. Last mammogram was performed 1 year(s) and 5 month(s) ago. Patient History: Menarche at age 10. First Full-Term at age 25. Left ovary removed at age 43. Right ovary removed at age 43. Hysterectomy at age 43. Postmenopausal. Patient used Progesterone for 1 year. 2013, Benign Excisional Biopsy on the left side. 2007, Benign Excisional Biopsy on the left side. Paternal aunt had breast cancer, age 70. Risk Values: Ina 5 year model risk: 2.4%. NCI Lifetime model risk: 11.9%. Tissue Density: The breasts are heterogeneously dense, which may obscure small masses. Findings: Analyzed By CAD. No evidence for mass or distortion. No suspicious microcalcifications. Overall Assessment: Negative, BI-RAD 1 Management: Screening Mammogram of both breasts in 1 year. . Results were given to the patient verbally at the time of exam. Patient should continue monthly self-breast exams. A clinical breast exam by your physician is recommended on an annual basis. This exam should not preclude additional follow-up of suspicious palpable abnormalities. Note on Ina scores and lifetime risk: 1. A Ina score greater than 3% is considered moderate risk. If this is the case, consider specialist referral to assess eligibility for a risk reducing agent. 2. If overall lifetime risk for the development of breast cancer is 20% or higher, the patient may qualify for future screening with alternating mammogram and breast MRI. [facility], , 07/08/2024 11:09 AM. Electronically signed and approved by: Justin Singh M.D. Radiologis
== END | disposition home or self-care (01) ==
LOC: RADMAMWWP 10:41
PROVIDERS: ATTEND Family Medicine
DX: R92.8 Other abnormal and inconclusive findings on diagnostic imaging of breast (principal); R92.333 Mammographic heterogeneous density, bilateral breasts; Z78.0 Asymptomatic menopausal state; Z80.3 Family history of malignant neoplasm of breast
CPT/HCPCS: 77066; G0279; 77062